=== PATIENT | female | born 1935 | race Caucasian/White ===

== ENCOUNTER → 2016-09-28 | Outpatient (CLI) | payer MEDICARE ==
[~2016-09-28] MED LIST: /AMIO20TA PO; /CELE20CA; /OMEP10CA PO; ACET-654 PO; ACET500C; ACET500C OR; ACET650T PO; ASPI81TA63; BIOT50004 PO; BYST10TA PO; CALC-204 PO; CALC0.009 TOP; CALCCHW12 PO; CALCIUM CITRATE PO; CAND8TA PO; CARTIA XT PO; COCOOIL PO; COZA100T OR; DIGO0.126 PO; DILT180C3 OR; DILT180C53 PO; DULO30CA PO; FLAXOIL4; FOLI1TAB PO; FURO20TA2 PO; GABA-283 PO; GARC500T PO; GLUC500T3 PO; HYDR-3713 PO; IRBE75TA2 PO; JANUVIA PO; LIDO1CRE2 TOP; LISI5TAB PO; LIVA2TAB PO; LYRI75CA; MELA0.02 PO; METH2.5T PO; METH2.5T3 PO; MULTIVIT PO; NEUR100C PO; PACE200T PO; RED YEAST RICE PO; RESTASIS; RESTASIS OU; ROBA500T PO; SPIR25TA2 PO; TIMOLOL PO; TIZA4TAB OR; TRAM50TA2; TRAM50TA2 PO; VIT D; VIT D 2000 PO; VITA200016 PO; VITA500C OR; VITMTA PO; XARE20TA PO; [UNRECOGNIZED DRUG - CODE] PO; [UNRECOGNIZED DRUG - OTHER]; [UNRECOGNIZED DRUG - OTHER]; [UNRECOGNIZED DRUG - OTHER] PO; cipro; dovonex TOP
--- NOTE | 2016-10-11 02:04 | ECWPNPC ---
PATIENT NAME: SOCO FRANKLIN : 1935 GENDER: FEMALE VISIT DATE: 09/28/2016 DISCHARGE DATE: 09/28/16 1100 VISIT LOCKED DATE TIME: PHYSICIAN: ITALO GUILLEN RESOURCE: ITALO GUILLEN REASON FOR APPOINTMENT 1. LOW BACK/LEGS HISTORY OF PRESENT ILLNESS HISTORY OF PRESENT ILLNESS: PAIN THE PATIENT DESCRIBES THE PAIN... FALL RISK SCREENING: SCREENING :NO FALLS IN THE PAST YEAR TODAY'S VISIT: NOTES: HAS HAD NEW DIFFICULTY WITH INCREASED PAIN WITH GETTING INTO AND OUT OF BED. HAS BEEN HAVING INCREASED WEAKNESS PARTICULARLY IN LEFT LEG. PHYSICAL THERAPY TO EVAL. THEY ARE RECOMMENDING NEW SURGICAL EVAL. RECENT FALL BACKWARDS ON COMMODE WHICH PRODUCED BRUISING AND DIFFICULTY SITTING. HAS CONSTANT AND PERSISTANT ACHE IN LEG. DOES HAVE POWER CHAIR AND HAS BEEN USING THIS. WILL BE SEEING DR TONY FOR BOWEL CONSTIPATION/BOWEL ISSUES. . CURRENT MEDICATIONS TAKING VITAMIN C 500 MG TABLET CHEWABLE DIRECTED ORALLY DAILY TAKING VITAMIN D 3000 CAPSULE 1 TABLET ORALLY ONCE A DAY TAKING PRILOSEC OTC 20 MG TABLET DELAYED RELEASE 1 TABLET ORALLY ONCE A DAY TAKING JANUVIA 100 MG TABLET 1 TABLET ORALLY ONCE A DAY TAKING CALCIUM 600 + D 600-400 MG-UNIT TABLET 1 TABLET ORALLY TWICE DAILY TAKING METHOTREXATE 2.5 MG TABLET 3 TAB(S) ORALLY WEEKLY TAKING FOLIC ACID 1 MG TABLET 1 TABLET ORALLY ONCE A DAY TAKING DOVONEX 0.005 % CREAM 1 APPLICATION TO AFFECTED AREA EXTERNALLY TWICE A DAY TAKING AMIODARONE HCL 200 MG TABLET 1 TABLET ORALLY ONCE A DAY TAKING BYSTOLIC 10 MG TABLET 1 TABLET ORALLY ONCE A DAY TAKING BENADRYL 25 MG TABLETS 2 CAPSULE NEEDED ORALLY QD TAKING XARELTO 20 MG TABLET 1 TABLET WITH FOOD ORALLY ONCE A DAY TAKING SPIRONOLACTONE 25 MG TABLET 1 TABLET ORALLY QD TAKING IRBESARTAN 75 MG TABLET 1 TABLET ORALLY ONCE A DAY TAKING PRAVASTATIN SODIUM 10 MG TABLET 1 TABLET ORALLY ONCE A DAY TAKING LIDOCAINE 5 % OINTMENT 1 APPLICATION TO AFFECTED AREA NEEDED EXTERNALLY FOUR TIMES DAILY TAKING GABAPENTIN 300 MG CAPSULE 1 CAPSULE ORALLY THREE TIMES A DAY TAKING CYMBALTA 60 MG CAPSULE DELAYED RELEASE PARTICLES 1 CAPSULE ORALLY ONCE A DAY TAKING NORCO 5-325 MG TABLET 1 TABLET ORALLY EVERY 6 HRS PRN PAIN MDD=2 TAKING DOC-Q-LACE 100 MG CAPSULE 1 CAPSULE NEEDED ORALLY ONCE A DAY TAKING SENNA LAX 8.6 MG TABLET 2 TABLETS AT BEDTIME NEEDED ORALLY ONCE A DAY TAKING TYLENOL 325 MG TABLET 1 TABLET NEEDED ORALLY EVERY 6 HRS NOT-TAKING POLYETHYLENE GLYCOL 3350-GRX POWDER ORALLY DISCONTINUED CARTIA XT 180 MG CAPSULE EXTENDED RELEASE 24 HOUR 1 CAPSULE ORALLY ONCE A DAY DISCONTINUED TIMOLOL MALEATE 10 MG TABLET 1 TABLET ORALLY DAILY DISCONTINUED GLUCOSAMINE CHONDR 500 COMPLEX CAPSULE DIRECTED ORALLY TWICE DAILY DISCONTINUED OMEGA 3-6-9 FATTY ACIDS CAPSULE DIRECTED ORALLY DAILY DISCONTINUED RESTASIS 0.05 % EMULSION 1 INTO AFFECTED EYE OPHTHALMIC TWICE A DAY DISCONTINUED RED YEAST RICE 600 MG CAPSULE DIRECTED ORALLY TWICE DAILY DISCONTINUED TIZANIDINE HCL 4 MG TABLET 1 TABLET ORALLY EVERY 8 HRS MEDICATION LIST REVIEWED AND RECONCILED WITH THE PATIENT PAST MEDICAL HISTORY HIGH CHOLESTEROL HIGH BLOOD PRESSURE ARTHRITIS DIABETES MALLITUS PSORIASIS CHRONIC DRY EYES SKIN CANCERS (SCC) ALLERGIES ESTROGENS CONJ SYNTHETIC A: RASH CLOBETASOL PROPIONATE: RASH IMIQUIMOD: RASH CLINDAMYCIN HCL: RASH TRAMADOL: NAUSEA ,VOMITTING AND DIZZINESS SULFA: CONTRAINDICATION SOCIAL HISTORY GENERAL: TOBACCO USE ARE YOU A:NONSMOKER LEARNING BARRIERS / SPECIAL NEEDS ORIENTED TO PLAN OF CARE: PATIENT, PAIN MANAGEMENT PATIENT, ORIENTED TO PLAN OF CARE: PATIENT, PAIN MANAGEMENT PATIENT. NEW PATIENT PAIN DIARY TODAY'S VISITNOTES FROM 0-10, WHAT LEVEL IS YOUR PAIN TODAY?0 PAIN CLINIC PFS, CLERGY, PUBLIC HEALTH REFERRALS PFS REFERRAL NEEDED?NO CLERGY REFERRAL NEEDED?NO PUBLIC HEALTH REFERRAL NEEDED?NO WAS THE PROVIDER NOTIFIED OF ANY PERTINENT INFO?NO PFS REFERRAL NEEDED?NO CLERGY REFERRAL NEEDED?NO PUBLIC HEALTH REFERRAL NEEDED?NO WAS THE PROVIDER NOTIFIED OF ANY PERTINENT INFO?NO REVIEW OF SYSTEMS CONSTITUTIONAL: ANY CHANGE IN YOUR MEDICAL CONDITION? NO . CHILLS NO . FEVER NO . INFECTION: DO YOU HAVE NEW INFECTIONS? NO . DO YOU HAVE HISTORY OF MRSA? NO . MUSCULOSKELETAL: ANY NEW PATTERNS OF PAIN OR NUMBNESS? NO . GASTROENTEROLOGY: ANY NEW CHANGE IN BOWEL CONTROL? NO . GENITOURINARY: ANY NEW CHANGE IN BLADDER CONTROL? NO . IS THERE A CHANCE YOU COULD BE ? NO . HEMATOLOGY/LYMPH: DO YOU TAKE ANY BLOOD THINNERS? (FOR EXAMPLE- COUMADIN, PLAVIX, AGGRENOX, PLATEL, PRADAXA, OR XARELTO) YES, XARALTO . WHEN WAS YOUR LAST DOSE? DATE: TIME: . NEUROLOGY: HAVE YOU FALLEN IN THE PAST 6 MONTHS? YES . ANY NEW EXTREMITY NUMBNESS OR WEAKNESS? PERINEAL NUMBNESS . CARDIOLOGY: DO YOU HAVE A PACEMAKER OR DEFIBRILLATOR? YES, PACEMAKER . RESPIRATORY: HAVE YOU BEEN SICK IN THE PAST WEEK? NO . FEVER NO . FLU LIKE SYMPTOMS? NO . BREATHING DECREASED O2 SATS AT NITE - HAS BEEN STARTED ON OXYGEN THERAPY WHICH HAS IMPROVED DAY TIME SLEEPINESS. HAD RECENT PULMONARY FUNCTION STUDIES. . COUGH NO . INTEGUMENTARY: DO YOU HAVE ANY RASHES OR OPEN SORES? NO . ALLERGIC/IMMUNO: ARE YOU ALLERGIC TO SHELLFISH OR IV DYE? NO . ANY NEW ALLERGIES? NO . PSYCHIATRIC: DO YOU HAVE THOUGHTS OF HURTING YOURSELF OR SOMEONE ELSE? NO . ARE YOU ABUSED, NEGLECTED, OR IN AN UNSAFE ENVIRONMENT? NO . ENDOCRINOLOGY: ARE YOU DIABETIC? YES . OTHER: DO YOU NEED ANY PRESCRIPTIONS? NO . IF YES, PLEASE LIST: ____ . ANY NEW PROBLEMS WITH YOUR MEDICATIONS? NO . WHEN DID YOU LAST EAT? ____ . WHEN DID YOU LAST DRINK? ____ . WHAT DID YOU LAST DRINK? ____ . NAME OF PERSON DRIVING YOU HOME? ____ . DO YOU HAVE ANY OTHER QUESTIONS OR CONCERNS NO . UROLOGY: GENERAL NOCTURIA X 3. COMMODE AT BEDSIDE. . REVIEWED BY: PROVIDER: ITALO AVINA . VITAL SIGNS WT 228 LBS, HT 63 IN, BMI 40.38 INDEX, BP 116/64 MM HG, HR 100 /MIN, RR 18 /MIN, TEMP 97.7 F, OXYGEN SAT % 97, NA INITIALS TL 1002, REVIEWED BY: CM. EXAMINATION GENERAL EXAMINATION: PSYCHALERT , ORIENTED X 3 , APPROPRIATE MOOD AND AFFECT . LUNGS:CLEAR TO AUSCULTATION BILATERALLY. HEART:HEART RATE REGULAR. MUSCULOSKELETAL:GAIT STEPPING. VERY DIFFICULT TIME RISING TO STANDING POSITION OR RETURNING TO SEATED POSITION. MILD TENDERNESS WITH PALPATION OVER LUMBOSACRAL AXIS. WEAKESS IN BOTH LOWER EXTREMITIES. . ASSESSMENTS LUMBAR SPINAL STENOSIS - M48.06 (PRIMARY) LUMBAR RADICULOPATHY, CHRONIC - M54.16 CHRONIC PRESCRIPTION OPIATE USE - Z79.891 TREATMENT LUMBAR SPINAL STENOSIS START GABAPENTIN CAPSULE, 300 MG, 1 CAPSULE, ORALLY, FOUR TIMES DAILY, 30 DAY(S), 120, REFILLS 3 REFILL NORCO TABLET, 5-325 MG, 1 TABLET, ORALLY, EVERY 6 HRS PRN PAIN MDD=2, 30 DAY(S), 120, REFILLS 0 PROCEDURE CODES FA211 ESTABILISHED PATIENT [facility] FACILITY CHARGE G8730 PAIN ASSESS POS TOOL F/U PLAN DOC G8427 DOC MEDS VERIFIED W/PT OR RE DISPOSITION & COMMUNICATION FOLLOW UP 3 MONTH ELECTRONICALLY SIGNED BY CHRISTINE CURTIS ON 10/10/2016 AT 03:23 PM EST DISCLAIMER : THIS IS A VISIT SUMMARY EXTRACTED FROM THE [employer] CHART. IT IS NOT A COPY OF THE [employer] PROGRESS NOTE. CACHORRO
== END ==
LOC: M PAIN 10:00
PROVIDERS: ATTEND Nurse Practitioner Family
DX: Z09 Encounter for follow-up examination after completed treatment for conditions other than malignant neoplasm (principal); G89.29 Other chronic pain; M48.06 Spinal stenosis, lumbar region; M54.16 Radiculopathy, lumbar region; E78.00 Pure hypercholesterolemia, unspecified; I10 Essential (primary) hypertension; M19.90 Unspecified osteoarthritis, unspecified site; E11.9 Type 2 diabetes mellitus without complications; L40.9 Psoriasis, unspecified; M62.81 Muscle weakness (generalized); G62.9 Polyneuropathy, unspecified; Z88.8 Allergy status to other drugs, medicaments and biological substances; Z88.2 Allergy status to sulfonamides; Z88.5 Allergy status to narcotic agent; Z79.01 Long term (current) use of anticoagulants; Z79.891 Long term (current) use of opiate analgesic; Z79.899 Other long term (current) drug therapy; Z95.0 Presence of cardiac pacemaker

== ENCOUNTER → 2016-12-26 | Outpatient (CLI) | payer MEDICARE ==
--- NOTE | 2017-01-16 03:13 | ECWPNPC ---
PATIENT NAME: SOCO FRANKLIN : 1935 GENDER: FEMALE VISIT DATE: 12/26/2016 DISCHARGE DATE: 12/26/16 1135 VISIT LOCKED DATE TIME: PHYSICIAN: ITALO GUILLEN RESOURCE: ITALO GUILLEN REASON FOR APPOINTMENT 1. LBP/LEGS HISTORY OF PRESENT ILLNESS HISTORY OF PRESENT ILLNESS: PAIN THE PATIENT DESCRIBES THE PAIN... FALL RISK SCREENING: SCREENING :NO FALLS IN THE PAST YEAR TODAY'S VISIT: NOTES: NOTES THAT MORNING ARE GENERALLY THE BEST, BACK AND LEFT LEG PAIN INCREASED DAY GOES ON AND WITH INCREASED ACTIVITY. SITTING RELIEVES THE PAIN. BALANCE REMAINS POOR. NO RECENT FALLS. HAVING GREAT DEAL OF DIFFICULTY GETTING INTO CAR. HAS SOME NEUROPATHIC PAIN.. CURRENT MEDICATIONS TAKING VITAMIN C 500 MG TABLET CHEWABLE DIRECTED ORALLY DAILY TAKING VITAMIN D 3000 CAPSULE 1 TABLET ORALLY ONCE A DAY TAKING PRILOSEC OTC 20 MG TABLET DELAYED RELEASE 1 TABLET ORALLY ONCE A DAY TAKING JANUVIA 100 MG TABLET 1 TABLET ORALLY ONCE A DAY TAKING CALCIUM 600 + D 600-400 MG-UNIT TABLET 1 TABLET ORALLY TWICE DAILY TAKING METHOTREXATE 2.5 MG TABLET 3 TAB(S) ORALLY WEEKLY TAKING FOLIC ACID 1 MG TABLET 1 TABLET ORALLY ONCE A DAY TAKING DOVONEX 0.005 % CREAM 1 APPLICATION TO AFFECTED AREA EXTERNALLY TWICE A DAY TAKING AMIODARONE HCL 200 MG TABLET 1 TABLET ORALLY ONCE A DAY TAKING BYSTOLIC 10 MG TABLET 1 TABLET ORALLY ONCE A DAY TAKING BENADRYL 25 MG TABLETS 2 CAPSULE NEEDED ORALLY QD TAKING XARELTO 20 MG TABLET 1 TABLET WITH FOOD ORALLY ONCE A DAY TAKING SPIRONOLACTONE 25 MG TABLET 1 TABLET ORALLY QD TAKING IRBESARTAN 75 MG TABLET 1 TABLET ORALLY ONCE A DAY TAKING PRAVASTATIN SODIUM 10 MG TABLET 1 TABLET ORALLY ONCE A DAY TAKING LIDOCAINE 5 % OINTMENT 1 APPLICATION TO AFFECTED AREA NEEDED EXTERNALLY FOUR TIMES DAILY TAKING CYMBALTA 60 MG CAPSULE DELAYED RELEASE PARTICLES 1 CAPSULE ORALLY ONCE A DAY TAKING DOC-Q-LACE 100 MG CAPSULE 1 CAPSULE NEEDED ORALLY ONCE A DAY TAKING SENNA LAX 8.6 MG TABLET 2 TABLETS AT BEDTIME NEEDED ORALLY ONCE A DAY TAKING TYLENOL 325 MG TABLET 1 TABLET NEEDED ORALLY EVERY 6 HRS TAKING GABAPENTIN 300 MG CAPSULE 1 CAPSULE ORALLY FOUR TIMES DAILY TAKING NORCO 5-325 MG TABLET 1 TABLET ORALLY EVERY 6 HRS PRN PAIN MDD=2 NOT-TAKING POLYETHYLENE GLYCOL 3350-GRX POWDER ORALLY DISCONTINUED GABAPENTIN 300 MG CAPSULE 1 CAPSULE ORALLY FOUR TIMES DAILY MEDICATION LIST REVIEWED AND RECONCILED WITH THE PATIENT PAST MEDICAL HISTORY HIGH CHOLESTEROL HIGH BLOOD PRESSURE ARTHRITIS DIABETES MALLITUS PSORIASIS CHRONIC DRY EYES SKIN CANCERS (SCC) ALLERGIES ESTROGENS CONJ SYNTHETIC A: RASH CLOBETASOL PROPIONATE: RASH IMIQUIMOD: RASH CLINDAMYCIN HCL: RASH TRAMADOL: NAUSEA ,VOMITTING AND DIZZINESS SULFA: CONTRAINDICATION REVIEW OF SYSTEMS CONSTITUTIONAL: ANY CHANGE IN YOUR MEDICAL CONDITION? NO . CHILLS NO . FEVER NO . INFECTION: DO YOU HAVE NEW INFECTIONS? NO . DO YOU HAVE HISTORY OF MRSA? NO . MUSCULOSKELETAL: ANY NEW PATTERNS OF PAIN OR NUMBNESS? NO . GASTROENTEROLOGY: ANY NEW CHANGE IN BOWEL CONTROL? NO NO CONSTIPATION . GENITOURINARY: ANY NEW CHANGE IN BLADDER CONTROL? NO . IS THERE A CHANCE YOU COULD BE ? NO . HEMATOLOGY/LYMPH: DO YOU TAKE ANY BLOOD THINNERS? (FOR EXAMPLE- COUMADIN, PLAVIX, AGGRENOX, PLATEL, PRADAXA, OR XARELTO) YES, XARELTO . WHEN WAS YOUR LAST DOSE? DATE: TIME: 12/25/16 1730 . NEUROLOGY: HAVE YOU FALLEN IN THE PAST 6 MONTHS? NO . ANY NEW EXTREMITY NUMBNESS OR WEAKNESS? NO . CARDIOLOGY: DO YOU HAVE A PACEMAKER OR DEFIBRILLATOR? YES, PACEMAKER . RESPIRATORY: HAVE YOU BEEN SICK IN THE PAST WEEK? NO . FEVER NO . FLU LIKE SYMPTOMS? NO . COUGH NO . INTEGUMENTARY: DO YOU HAVE ANY RASHES OR OPEN SORES? NO . ALLERGIC/IMMUNO: ARE YOU ALLERGIC TO SHELLFISH OR IV DYE? NO . ANY NEW ALLERGIES? NO . PSYCHIATRIC: DO YOU HAVE THOUGHTS OF HURTING YOURSELF OR SOMEONE ELSE? NO . ARE YOU ABUSED, NEGLECTED, OR IN AN UNSAFE ENVIRONMENT? NO . ENDOCRINOLOGY: ARE YOU DIABETIC? YES, FSBS 102 THIS A.M . OTHER: DO YOU NEED ANY PRESCRIPTIONS? NO . IF YES, PLEASE LIST: ____ . ANY NEW PROBLEMS WITH YOUR MEDICATIONS? NO . WHEN DID YOU LAST EAT? ____ . WHEN DID YOU LAST DRINK? ____ . WHAT DID YOU LAST DRINK? ____ . NAME OF PERSON DRIVING YOU HOME? ____ . DO YOU HAVE ANY OTHER QUESTIONS OR CONCERNS NO . REVIEWED BY: PROVIDER: ITALO AVINA . VITAL SIGNS WT 224.0 LBS, HT 63 IN, BMI 39.68 INDEX, BP 130/90 MM HG, HR 98 /MIN, RR 16 /MIN, TEMP 97.5 F, OXYGEN SAT % 96%, NA INITIALS TL 1044, REVIEWED BY: AD. EXAMINATION GENERAL EXAMINATION: PSYCHALERT , ORIENTED X 3 , APPROPRIATE MOOD AND AFFECT . LUNGS:CLEAR TO AUSCULTATION BILATERALLY. HEART:HEART RATE REGULAR. MUSCULOSKELETAL:GAIT STEPPING. VERY DIFFICULT TIME RISING TO STANDING POSITION OR RETURNING TO SEATED POSITION. MILD TENDERNESS WITH PALPATION OVER LUMBOSACRAL AXIS. WEAKESS IN BOTH LOWER EXTREMITIES. . ASSESSMENTS LUMBAR SPINAL STENOSIS - M48.06 (PRIMARY) NEUROPATHY - G62.9 CHRONIC PRESCRIPTION OPIATE USE - Z79.891 TREATMENT LUMBAR SPINAL STENOSIS NOTES: CONTINUE CURRENT MEDS. CONTINUE EXERCISES AND STRETCHES. UPDATE NARCOTIC AGREEEMENT , FALLS CARE PLAN: 1. RECOMMEND REMOVING ALL THROW RUGS. 2. RECOMMEND NIGHT LIGHTS 3. RECOMMEND WEARING RUBBER SOLED SHOES AND TO NOT GO BAREFOOT. 4.. ADVISED TO CHANGE POSITION SLOWLY FROM SUPINE TO STANDING TO AVOID DIZZINESS. 5. ADVISED TO USE ASSISTIVE DEVICE SUCH CANE OR WALKER USE POWER CHAIR FOR LONGER DISTANCES. #128 - SCREENING BMI AND F/U PLAN IN : BMI ABOVE NORMAL TODAY. DISCUSSED WITH PATIENT NUTRITIONAL FOOD CHOICES TO ASSIST WITH WEIGHT LOSS. RECCOMMENDED REDUCING SALT, SUGAR, SODA INTAKE. RECOMMEND INCREASE ACTIVITY TO INCLUDE WALKING ON A REGULAR BASIS. , 6. USE [employer] OR KEEP PORTABLE PHONE READILY AVAILABLE. CLINICAL NOTES: ISTOP REGISTRY REVIEWED AND DEMNOSTRATES COMPLLIANCE. BRINGS IN MEDICATIONS WHICH IS APPROPRIATE FOR WHAT WAS DISPENSED. RECENT URINE TOXICOLOGY REVIEWED. NO UNAUTHORIZED MEDICATIONS. NO ILLICIT SUBSTANCES AND PRESCRIBED MEDICATIONS WERE PRESENT. PROCEDURE CODES FA211 ESTABILISHED PATIENT [facility] FACILITY CHARGE G8783 BP SCR PRFRM RCMDD DEFIND SCR INTVL G8730 PAIN ASSESS POS TOOL F/U PLAN DOC 3016F PT SCRND UNHLTHY OH USE 1124F ACP DISCUSS-NO [id number] DOCD 1036F TOBACCO NON-USER 0518F FALL PLAN OF CARE DOCD G8427 DOC MEDS VERIFIED W/PT OR RE G8417 BMI >=30 CALCUATE W/FOLLOWUP 3288F FALL RISK ASSESSMENT DOCD DISPOSITION & COMMUNICATION FOLLOW UP 3 MONTHS ELECTRONICALLY SIGNED BY CHRISTINE CURTIS ON 01/15/2017 AT 08:21 AM EDT DISCLAIMER : THIS IS A VISIT SUMMARY EXTRACTED FROM THE [employer] CHART. IT IS NOT A COPY OF THE [employer] PROGRESS NOTE. CACHORRO
== END ==
LOC: M PAIN 10:00
PROVIDERS: ATTEND Nurse Practitioner Family
DX: G89.29 Other chronic pain (principal); M48.06 Spinal stenosis, lumbar region; G62.9 Polyneuropathy, unspecified; E78.00 Pure hypercholesterolemia, unspecified; I10 Essential (primary) hypertension; M19.90 Unspecified osteoarthritis, unspecified site; E11.9 Type 2 diabetes mellitus without complications; Z88.8 Allergy status to other drugs, medicaments and biological substances; Z88.5 Allergy status to narcotic agent; Z88.2 Allergy status to sulfonamides; Z79.01 Long term (current) use of anticoagulants; Z79.891 Long term (current) use of opiate analgesic; Z79.899 Other long term (current) drug therapy; Z95.0 Presence of cardiac pacemaker

== ENCOUNTER → 2017-01-10 | Outpatient (CLI) | payer MEDICARE ==
[2017-01-10 14:14] LABS: MEAN CORPUSCULAR HEMOGLOBIN 36.7 pg (27.0-33.0); MEAN CORPUSCULAR HGB CONC 33.9 g/dl (32.0-36.5); MEAN CORPUSCULAR VOLUME 108.2 fl (80.0-96.0); RED CELL DISTRIBUTION WIDTH 12.8 % (11.5-14.5); WHITE BLOOD COUNT 5.3 K/mm3 (4.0-10.0)
== END ==
LOC: M SMT 11:02
PROVIDERS: ATTEND Physician Assistant Medical
DX: K62.5 Hemorrhage of anus and rectum (principal); Z79.01 Long term (current) use of anticoagulants

== ENCOUNTER → 2017-03-28 | Outpatient (CLI) | payer MEDICARE ==
[~2017-03-28] MED LIST changes: -MELA0.02 PO; +MELA3TAB49 PO
--- NOTE | 2017-04-13 23:39 | ECWPNPC ---
PATIENT NAME: SOCO FRANKLIN : 1935 GENDER: FEMALE VISIT DATE: 03/28/2017 DISCHARGE DATE: 03/28/17 1115 VISIT LOCKED DATE TIME: PHYSICIAN: ITALO GUILLEN RESOURCE: ITALO GUILLEN REASON FOR APPOINTMENT 1. FOLLOWUP HISTORY OF PRESENT ILLNESS HISTORY OF PRESENT ILLNESS: PAIN THE PATIENT DESCRIBES THE PAIN... FALL RISK SCREENING: SCREENING :NO FALLS IN THE PAST YEAR TODAY'S VISIT: NOTES: HAS HAD A GOOD SUMMER. HAS BEEN SWIMMING AND IS SLEEPING WELL. HAS GOOD DAYS AND BAD DAYS. HAS A CRAMP PAIN IN SIDE OF LEFT LEFT LEG - THIS CAN AWAKEN AT NITE.RATES PAIN VARYING BETWEEN 0-6/10 DEPENDING ON THE AMOUNT OF TIME SHE SPENDS ON HER FEET. . CURRENT MEDICATIONS TAKING VITAMIN C 500 MG TABLET CHEWABLE DIRECTED ORALLY DAILY TAKING VITAMIN D 3000 CAPSULE 1 TABLET ORALLY ONCE A DAY TAKING PRILOSEC OTC 20 MG TABLET DELAYED RELEASE 1 TABLET ORALLY ONCE A DAY TAKING JANUVIA 100 MG TABLET 1 TABLET ORALLY ONCE A DAY TAKING CALCIUM 600 + D 600-400 MG-UNIT TABLET 2 TABLETS ORALLY TWICE DAILY TAKING METHOTREXATE 2.5 MG TABLET 3 TAB(S) ORALLY WEEKLY TAKING FOLIC ACID 1 MG TABLET 1 TABLET ORALLY ONCE A DAY EXCEPT ON SAT TAKING DOVONEX 0.005 % CREAM 1 APPLICATION TO AFFECTED AREA EXTERNALLY TWICE A DAY TAKING AMIODARONE HCL 200 MG TABLET 1 TABLET ORALLY ONCE A DAY TAKING BYSTOLIC 10 MG TABLET 1 TABLET ORALLY ONCE A DAY TAKING XARELTO 20 MG TABLET 1 TABLET WITH FOOD ORALLY ONCE A DAY TAKING SPIRONOLACTONE 25 MG TABLET 1 TABLET ORALLY QD TAKING IRBESARTAN 75 MG TABLET 1 TABLET ORALLY ONCE A DAY TAKING PRAVASTATIN SODIUM 10 MG TABLET 1 TABLET ORALLY ONCE A DAY TAKING LIDOCAINE 5 % OINTMENT 1 APPLICATION TO AFFECTED AREA NEEDED EXTERNALLY FOUR TIMES DAILY TAKING TYLENOL 325 MG TABLET 1 TABLET NEEDED ORALLY EVERY 6 HRS TAKING GABAPENTIN 300 MG CAPSULE 1 CAPSULE ORALLY FOUR TIMES DAILY, NOTES: 03/28/17 AT 0800 TAKING CYMBALTA 60 MG CAPSULE DELAYED RELEASE PARTICLES 1 CAPSULE ORALLY ONCE A DAY, NOTES: 03/28/17 AT 0800 TAKING NORCO 5-325 MG TABLET 1 TABLET ORALLY EVERY 6 HRS PRN PAIN MDD=2, NOTES: 03/27/17 AT 2300 TAKING FUROSEMIDE 20 MG TABLET 1 TABLET ORALLY ONCE A DAY TAKING FIBER - TABLET 1 TAB ORALLY TWICE A DAY NOT-TAKING BENADRYL 25 MG TABLETS 2 CAPSULE NEEDED ORALLY QD NOT-TAKING DOC-Q-LACE 100 MG CAPSULE 1 CAPSULE NEEDED ORALLY ONCE A DAY NOT-TAKING SENNA LAX 8.6 MG TABLET 2 TABLETS AT BEDTIME NEEDED ORALLY ONCE A DAY NOT-TAKING POLYETHYLENE GLYCOL 3350-GRX POWDER ORALLY MEDICATION LIST REVIEWED AND RECONCILED WITH THE PATIENT PAST MEDICAL HISTORY HIGH CHOLESTEROL HIGH BLOOD PRESSURE ARTHRITIS DIABETES MALLITUS PSORIASIS CHRONIC DRY EYES SKIN CANCERS (SCC) ALLERGIES ESTROGENS CONJ SYNTHETIC A: RASH CLOBETASOL PROPIONATE: RASH IMIQUIMOD: RASH CLINDAMYCIN HCL: RASH TRAMADOL: NAUSEA ,VOMITTING AND DIZZINESS SULFA: CONTRAINDICATION SOCIAL HISTORY GENERAL: TOBACCO USE ARE YOU A:NONSMOKER JUDAISM [id number] TAOIST LANGUAGE LANGUAGES SPOKEN:MALTESE LEARNING BARRIERS / SPECIAL NEEDS CHANGE FROM LAST VISIT?NO BARRIERS TO LEARNING?NO HEARING IMPAIRED?NO VISION IMPAIRED?YES :CORRECTIVE LENSES COGNITIVELY IMPAIRED?NO READINESS TO LEARN?YES LEARNING PREFERENCES?NO LEARNING CAPABILITIES PRESENT?YES EMOTIONAL BARRIERS?NO 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 CONSTITUTIONAL: ANY CHANGE IN YOUR MEDICAL CONDITION? NO . CHILLS NO . FEVER NO . INFECTION: DO YOU HAVE NEW INFECTIONS? NO . DO YOU HAVE HISTORY OF MRSA? NO . MUSCULOSKELETAL: ANY NEW PATTERNS OF PAIN OR NUMBNESS? NO . GASTROENTEROLOGY: ANY NEW CHANGE IN BOWEL CONTROL? NO SIGNIFICANT CONSTIPATION ON MULTIPLE MEDS AND HEMMORROIDS. . GENITOURINARY: ANY NEW CHANGE IN BLADDER CONTROL? NO . IS THERE A CHANCE YOU COULD BE ? NO . HEMATOLOGY/LYMPH: DO YOU TAKE ANY BLOOD THINNERS? (FOR EXAMPLE- COUMADIN, PLAVIX, AGGRENOX, PLATEL, PRADAXA, OR XARELTO) YES, XARELTO . WHEN WAS YOUR LAST DOSE? DATE:03/27/17 TIME: 1730 . NEUROLOGY: HAVE YOU FALLEN IN THE PAST 6 MONTHS? NO . ANY NEW EXTREMITY NUMBNESS OR WEAKNESS? NO . CARDIOLOGY: DO YOU HAVE A PACEMAKER OR DEFIBRILLATOR? YES . RESPIRATORY: HAVE YOU BEEN SICK IN THE PAST WEEK? NO . FEVER NO . FLU LIKE SYMPTOMS? NO . COUGH NO . INTEGUMENTARY: DO YOU HAVE ANY RASHES OR OPEN SORES? NO . ALLERGIC/IMMUNO: ARE YOU ALLERGIC TO SHELLFISH OR IV DYE? NO . ANY NEW ALLERGIES? NO . PSYCHIATRIC: DO YOU HAVE THOUGHTS OF HURTING YOURSELF OR SOMEONE ELSE? NO . ARE YOU ABUSED, NEGLECTED, OR IN AN UNSAFE ENVIRONMENT? NO . ENDOCRINOLOGY: ARE YOU DIABETIC? YES . OTHER: DO YOU NEED ANY PRESCRIPTIONS? NO . IF YES, PLEASE LIST: ____ . ANY NEW PROBLEMS WITH YOUR MEDICATIONS? NO . WHEN DID YOU LAST EAT? ____ . WHEN DID YOU LAST DRINK? ____ . WHAT DID YOU LAST DRINK? ____ . NAME OF PERSON DRIVING YOU HOME? ____ . DO YOU HAVE ANY OTHER QUESTIONS OR CONCERNS NO . VITAL SIGNS WT 239 LBS, HT 63 IN, BMI 42.33 INDEX, BP 131/60 MM HG, HR 70 /MIN, RR 16 /MIN, TEMP 97.2 F, OXYGEN SAT % 93%, NA INITIALS AW 1009, REVIEWED BY: CS. EXAMINATION GENERAL EXAMINATION: PSYCHALERT , ORIENTED X 3 , APPROPRIATE MOOD AND AFFECT . LUNGS:CLEAR TO AUSCULTATION BILATERALLY. HEART:HEART RATE REGULAR. MUSCULOSKELETAL:GAIT STEPPING. VERY DIFFICULT TIME RISING TO STANDING POSITION OR RETURNING TO SEATED POSITION. MILD TENDERNESS WITH PALPATION OVER LUMBOSACRAL AXIS. WEAKESS IN BOTH LOWER EXTREMITIES. . ASSESSMENTS LUMBAR SPINAL STENOSIS - M48.06 (PRIMARY) SACROILIITIS - M46.1 CHRONIC PRESCRIPTION OPIATE USE - Z79.891 TREATMENT LUMBAR SPINAL STENOSIS START MOVANTIK TABLET, 12.5 MG, 1 TABLET IN THE MORNING, ORALLY, ONCE A DAY, 30 DAY(S), 30, REFILLS 1 NOTES: UTOX TODAY CONTINUE CURRENT MEDS WALK TOLERATED. USE WALKER FOFR SUPPORT TRY MOVANTIK EVERY OTHER DAY, ISTOP REGISTRY REVIEWED AND DEMNOSTRATES COMPLLIANCE. BRINGS IN MEDICATIONS WHICH IS APPROPRIATE FOR WHAT WAS DISPENSED. RECENT URINE TOXICOLOGY REVIEWED. NO UNAUTHORIZED MEDICATIONS. NO ILLICIT SUBSTANCES AND PRESCRIBED MEDICATIONS WERE PRESENT. PROCEDURE CODES FA211 ESTABILISHED PATIENT [facility] FACILITY CHARGE G8730 PAIN ASSESS POS TOOL F/U PLAN DOC G8427 DOC MEDS VERIFIED W/PT OR RE DISPOSITION & COMMUNICATION FOLLOW UP 2 MONTHS (REASON: MEDS) ELECTRONICALLY SIGNED BY CHRISTINE CURTIS ON 04/13/2017 AT 04:43 PM EDT DISCLAIMER : THIS IS A VISIT SUMMARY EXTRACTED FROM THE [facility] CHART. IT IS NOT A COPY OF THE [facility] PROGRESS NOTE. CACHORRO
== END ==
LOC: M PAIN 10:00
PROVIDERS: ATTEND Nurse Practitioner Family
DX: M48.06 Spinal stenosis, lumbar region (principal); M46.1 Sacroiliitis, not elsewhere classified; Z79.891 Long term (current) use of opiate analgesic; Z79.899 Other long term (current) drug therapy; Z79.84 Long term (current) use of oral hypoglycemic drugs; Z88.8 Allergy status to other drugs, medicaments and biological substances; Z88.1 Allergy status to other antibiotic agents; Z88.2 Allergy status to sulfonamides

== ENCOUNTER → 2017-04-15 | Outpatient (REF) | payer MEDICARE ==
[2017-04-15 14:43] LABS: BASO % 0.9 % (0.0-1.0); EOS # 0.1 K/mm3 (0.0-0.50); EOS % 2.4 % (0.0-3.0); LARGE UNSTAINED CELL # 0.3 K/mm3 (0.0-0.4); LARGE UNSTAINED CELL % 4.4 % (0.0-4.0); LYMPH # 1.4 K/mm3 (1.5-4.5); LYMPH % 24.8 % (24.0-44.0); MEAN CORPUSCULAR HEMOGLOBIN 35.9 pg (27.0-33.0); MEAN CORPUSCULAR HGB CONC 34.1 g/dl (32.0-36.5); MEAN CORPUSCULAR VOLUME 105.1 fl (80.0-96.0); MONO # 0.5 K/mm3 (0.0-0.8); NEUTROPHILS # 3.4 K/mm3 (1.8-7.7); NEUTROPHILS % 59.5 % (36.0-66.0); PLATELET COUNT, AUTOMATED 277 k/mm3 (150-450); RED CELL DISTRIBUTION WIDTH 12.5 % (11.5-14.5); WHITE BLOOD COUNT 5.8 K/mm3 (4.0-10.0)
[2017-04-15 14:52] LABS: ALBUMIN 3.8 GM/DL (3.2-5.2); ALBUMIN/GLOBULIN RATIO 1.12 (1.00-1.93); BILIRUBIN,DIRECT 0.1 MG/DL (0.0-0.2); BILIRUBIN,TOTAL 0.4 MG/DL (0.2-1.0); CALCIUM LEVEL 8.6 MG/DL (8.8-10.2); CREATININE FOR GFR 1.16 MG/DL (0.55-1.02); GLOMERULAR FILTRATION RATE 47.9 (>32); PHOSPHORUS LEVEL 2.6 MG/DL (2.5-4.9); TOTAL PROTEIN 7.2 GM/DL (6.4-8.2)
== END ==
LOC: M LAB REF 11:40
PROVIDERS: ATTEND Nurse Practitioner Family
DX: L40.0 Psoriasis vulgaris (principal); Z51.81 Encounter for therapeutic drug level monitoring; Z79.899 Other long term (current) drug therapy

== ENCOUNTER → 2017-06-14 | Outpatient (CLI) | payer MEDICARE ==
--- NOTE | 2017-07-15 00:44 | ECWPNPC ---
PATIENT NAME: SOCO FRANKLIN : 1935 GENDER: FEMALE VISIT DATE: 06/14/2017 DISCHARGE DATE: 06/14/17 1148 VISIT LOCKED DATE TIME: PHYSICIAN: ITALO GUILLEN RESOURCE: ITALO GUILLEN REASON FOR APPOINTMENT 1. LEGS HISTORY OF PRESENT ILLNESS HISTORY OF PRESENT ILLNESS: PAIN THE PATIENT DESCRIBES THE PAIN... FALL RISK SCREENING: SCREENING :NO FALLS IN THE PAST YEAR TODAY'S VISIT: NOTES: RATES PAIN LEVEL TODAY 4/10. HAS NOTED SOME INCREASE PAIN IN LEFT LEG. THIS IS WORST AT NIGHT. IS NOT ABLE TO LAY ON RIGHT SIDE. MEDS ARE HELPFUL. HAD NO IMPROVEMENT WITH LINZESS - BOWELS ARE MOVING EVERY 3 DAYS. . CURRENT MEDICATIONS TAKING VITAMIN C 500 MG TABLET CHEWABLE DIRECTED ORALLY DAILY TAKING VITAMIN D 3000 CAPSULE 1 TABLET ORALLY ONCE A DAY TAKING PRILOSEC OTC 20 MG TABLET DELAYED RELEASE 1 TABLET ORALLY ONCE A DAY TAKING JANUVIA 100 MG TABLET 1 TABLET ORALLY ONCE A DAY TAKING CALCIUM 600 + D 600-400 MG-UNIT TABLET 2 TABLETS ORALLY TWICE DAILY TAKING METHOTREXATE 2.5 MG TABLET 3 TAB(S) ORALLY WEEKLY TAKING FOLIC ACID 1 MG TABLET 1 TABLET ORALLY ONCE A DAY EXCEPT ON SAT TAKING DOVONEX 0.005 % CREAM 1 APPLICATION TO AFFECTED AREA EXTERNALLY TWICE A DAY TAKING AMIODARONE HCL 200 MG TABLET 1 TABLET ORALLY ONCE A DAY TAKING BYSTOLIC 10 MG TABLET 1 TABLET ORALLY ONCE A DAY TAKING XARELTO 20 MG TABLET 1 TABLET WITH FOOD ORALLY ONCE A DAY TAKING SPIRONOLACTONE 25 MG TABLET 1 TABLET ORALLY QD TAKING IRBESARTAN 75 MG TABLET 1 TABLET ORALLY ONCE A DAY TAKING PRAVASTATIN SODIUM 10 MG TABLET 1 TABLET ORALLY ONCE A DAY TAKING LIDOCAINE 5 % OINTMENT 1 APPLICATION TO AFFECTED AREA NEEDED EXTERNALLY FOUR TIMES DAILY TAKING TYLENOL 325 MG TABLET 1 TABLET NEEDED ORALLY EVERY 6 HRS TAKING GABAPENTIN 300 MG CAPSULE 1 CAPSULE ORALLY FOUR TIMES DAILY, NOTES: 03/28/17 AT 0800 TAKING CYMBALTA 60 MG CAPSULE DELAYED RELEASE PARTICLES 1 CAPSULE ORALLY ONCE A DAY, NOTES: 03/28/17 AT 0800 TAKING FUROSEMIDE 40 MG TABLET 1 TABLET ORALLY ONCE A DAY TAKING FIBER - TABLET 1 TAB ORALLY TWICE A DAY TAKING NORCO 5-325 MG TABLET 1 TABLET ORALLY EVERY 6 HRS PRN PAIN MDD=2 NOT-TAKING LINZESS 145 MCG CAPSULE 1 CAPSULE ORALLY ONCE A DAY DISCONTINUED MOVANTIK 12.5 MG TABLET 1 TABLET IN THE MORNING ORALLY ONCE A DAY DISCONTINUED BENADRYL 25 MG TABLETS 2 CAPSULE NEEDED ORALLY QD DISCONTINUED DOC-Q-LACE 100 MG CAPSULE 1 CAPSULE NEEDED ORALLY ONCE A DAY DISCONTINUED SENNA LAX 8.6 MG TABLET 2 TABLETS AT BEDTIME NEEDED ORALLY ONCE A DAY DISCONTINUED POLYETHYLENE GLYCOL [id number] POWDER ORALLY MEDICATION LIST REVIEWED AND RECONCILED WITH THE PATIENT PAST MEDICAL HISTORY HIGH CHOLESTEROL HIGH BLOOD PRESSURE ARTHRITIS DIABETES MALLITUS PSORIASIS CHRONIC DRY EYES SKIN CANCERS (SCC) ALLERGIES ESTROGENS CONJ SYNTHETIC A: RASH CLOBETASOL PROPIONATE: RASH IMIQUIMOD: RASH CLINDAMYCIN HCL: RASH TRAMADOL: NAUSEA ,VOMITTING AND DIZZINESS SULFA: CONTRAINDICATION SOCIAL HISTORY GENERAL: TOBACCO USE ARE YOU A:NONSMOKER SYNAGOGUE [id number] JAINISM LANGUAGE LANGUAGES SPOKEN:FRISIAN LEARNING BARRIERS / SPECIAL NEEDS CHANGE FROM LAST VISIT?NO BARRIERS TO LEARNING?NO HEARING IMPAIRED?NO VISION IMPAIRED?YES :CORRECTIVE LENSES COGNITIVELY IMPAIRED?NO READINESS TO LEARN?YES LEARNING PREFERENCES?NO LEARNING CAPABILITIES PRESENT?YES EMOTIONAL BARRIERS?NO 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 CONSTITUTIONAL: ANY CHANGE IN YOUR MEDICAL CONDITION? NO . CHILLS NO . FEVER NO . INFECTION: DO YOU HAVE NEW INFECTIONS? NO . DO YOU HAVE HISTORY OF MRSA? NO . MUSCULOSKELETAL: ANY NEW PATTERNS OF PAIN OR NUMBNESS? NO . GASTROENTEROLOGY: ANY NEW CHANGE IN BOWEL CONTROL? NO . GENITOURINARY: ANY NEW CHANGE IN BLADDER CONTROL? NO . IS THERE A CHANCE YOU COULD BE ? NO . HEMATOLOGY/LYMPH: DO YOU TAKE ANY BLOOD THINNERS? (FOR EXAMPLE- COUMADIN, PLAVIX, AGGRENOX, PLATEL, PRADAXA, OR XARELTO) YES, XARALTO . WHEN WAS YOUR LAST DOSE? DATE: TIME: 10-26-17 5PM . NEUROLOGY: HAVE YOU FALLEN IN THE PAST 6 MONTHS? NO . ANY NEW EXTREMITY NUMBNESS OR WEAKNESS? NO . CARDIOLOGY: DO YOU HAVE A PACEMAKER OR DEFIBRILLATOR? YES, PACEMAKER . RESPIRATORY: HAVE YOU BEEN SICK IN THE PAST WEEK? NO . FEVER NO . FLU LIKE SYMPTOMS? NO . COUGH NO . INTEGUMENTARY: DO YOU HAVE ANY RASHES OR OPEN SORES? NO . ALLERGIC/IMMUNO: ARE YOU ALLERGIC TO SHELLFISH OR IV DYE? NO . ANY NEW ALLERGIES? NO . PSYCHIATRIC: DO YOU HAVE THOUGHTS OF HURTING YOURSELF OR SOMEONE ELSE? NO . ARE YOU ABUSED, NEGLECTED, OR IN AN UNSAFE ENVIRONMENT? NO . ENDOCRINOLOGY: ARE YOU DIABETIC? YES . OTHER: DO YOU NEED ANY PRESCRIPTIONS? NO . IF YES, PLEASE LIST: ____ . ANY NEW PROBLEMS WITH YOUR MEDICATIONS? NO . WHEN DID YOU LAST EAT? ____ . WHEN DID YOU LAST DRINK? ____ . WHAT DID YOU LAST DRINK? ____ . NAME OF PERSON DRIVING YOU HOME? ____ . DO YOU HAVE ANY OTHER QUESTIONS OR CONCERNS NO . VITAL SIGNS WT 239 LBS, HT 63 IN, BMI 42.33 INDEX, BP 99/56 MM HG, REPEAT BP 101/58 MM HG, HR 104 /MIN, RR 16 /MIN, TEMP 97.3 F, OXYGEN SAT % 91%, NA INITIALS SC11:18NURES IS AWARE OF PT,S VITALS.PT'S REPEAT VS B/P IMPROVED. HR IRREGULAR, RANGING FROM 79-105, O2 SAT+ 95% PATIENT DENIES C/O. SEES HER PCP ON . LESLIE GUILLEN AWARE. CM. EXAMINATION GENERAL EXAMINATION: PSYCHALERT , ORIENTED X 3 , APPROPRIATE MOOD AND AFFECT . LUNGS:CLEAR TO AUSCULTATION BILATERALLY. HEART:HEART RATE IR- REGULAR. , II/ SYSTOLIC MURMUR. MUSCULOSKELETAL:GAIT STEPPING. VERY DIFFICULT TIME RISING TO STANDING POSITION OR RETURNING TO SEATED POSITION. MILD TENDERNESS WITH PALPATION OVER LUMBOSACRAL AXIS. WEAKESS IN BOTH LOWER EXTREMITIES. WALKER USED FOR BALANCE. 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 USE WALKER. CLINICAL NOTES: ISTOP REGISTRY REVIEWED AND DEMNOSTRATES COMPLLIANCE. (REF # [id number]) BRINGS IN MEDICATIONS WHICH IS APPROPRIATE FOR WHAT WAS DISPENSED. RECENT URINE TOXICOLOGY REVIEWED. NO UNAUTHORIZED MEDICATIONS. NO ILLICIT SUBSTANCES AND PRESCRIBED MEDICATIONS WERE PRESENT. PROCEDURE CODES FA211 ESTABILISHED PATIENT [facility] CHARGE G8730 PAIN ASSESS POS TOOL F/U PLAN DOC G8427 DOC MEDS VERIFIED W/PT OR RE DISPOSITION & COMMUNICATION FOLLOW UP 3 MONTHS (REASON: BACK PAIN) ELECTRONICALLY SIGNED BY CHRISTINE CURTIS ON 07/14/2017 AT 08:53 PM EST DISCLAIMER : THIS IS A VISIT SUMMARY EXTRACTED FROM THE [employer] CHART. IT IS NOT A COPY OF THE [employer] PROGRESS NOTE. CACHORRO
== END ==
LOC: M PAIN 10:45
PROVIDERS: ATTEND Nurse Practitioner Family
DX: M48.061 Spinal stenosis, lumbar region without neurogenic claudication (principal); M46.1 Sacroiliitis, not elsewhere classified; E11.9 Type 2 diabetes mellitus without complications; I10 Essential (primary) hypertension; L40.9 Psoriasis, unspecified; R01.1 Cardiac murmur, unspecified; Z85.828 Personal history of other malignant neoplasm of skin; Z79.891 Long term (current) use of opiate analgesic; Z79.899 Other long term (current) drug therapy; Z79.84 Long term (current) use of oral hypoglycemic drugs; Z88.1 Allergy status to other antibiotic agents; Z88.2 Allergy status to sulfonamides; Z88.8 Allergy status to other drugs, medicaments and biological substances

== ENCOUNTER 2017-06-30 10:45 | Emergency (ER) | payer MEDICARE ==
[~2017-06-30] VITALS: Ht 157.5 cm; Wt 110.9 kg
[2017-06-30 14:06] VITALS: BP 107/59
--- NOTE | 2017-06-30 14:10 | REP ---
LEFT SHOULDER, THREE VIEWS: HISTORY: Trauma. There is no acute fracture or dislocation. There is narrowing of the acromioclavicular joint space. IMPRESSION: There is no acute fracture or dislocation. Signed by Beau Sawyer MD 06/30/2017 02:20 P
--- NOTE | 2017-06-30 14:11 | REP ---
LEFT KNEE, FOUR VIEWS: HISTORY: Trauma. There is no acute fracture or dislocation. There is narrowing of the joint spaces. An osteophyte is present on the inferior patella. IMPRESSION: There is no acute fracture or dislocation. Signed by Beau Sawyer MD 06/30/2017 02:20 P
== END 2017-06-30 14:46 | disposition home or self-care (01) ==
LOC: M ED 10:45
DX: S80.02XA Contusion of left knee, initial encounter (principal); S40.012A Contusion of left shoulder, initial encounter; W01.198A Fall on same level from slipping, tripping and stumbling with subsequent striking against other object, initial encounter; Y92.099 Unspecified place in other non-institutional residence as the place of occurrence of the external cause; Y93.89 Activity, other specified; Y99.9 Unspecified external cause status

== ENCOUNTER → 2017-07-25 | Outpatient (REF) | payer MEDICARE | LOC: M LAB REF 13:54 | PROVIDERS: ATTEND Surgery | DX: C44.41 Basal cell carcinoma of skin of scalp and neck (principal) ==

== ENCOUNTER → 2017-09-06 | Outpatient (REF) | payer MEDICARE | LOC: M LAB REF 18:13 | DX: L57.0 Actinic keratosis (principal) | CPT/HCPCS: 88305 ==

== ENCOUNTER → 2017-09-13 | Outpatient (CLI) | payer MEDICARE | LOC: M PAIN 11:00 | DX: M48.061 Spinal stenosis, lumbar region without neurogenic claudication (principal); M46.1 Sacroiliitis, not elsewhere classified; E11.9 Type 2 diabetes mellitus without complications; I10 Essential (primary) hypertension; Z79.4 Long term (current) use of insulin; Z79.891 Long term (current) use of opiate analgesic; Z79.899 Other long term (current) drug therapy; Z88.8 Allergy status to other drugs, medicaments and biological substances; Z88.2 Allergy status to sulfonamides; Z88.1 Allergy status to other antibiotic agents | CPT/HCPCS: G0463 ==

== ENCOUNTER → 2017-12-12 | Outpatient (CLI) | payer MEDICARE | LOC: M PAIN 10:30 | DX: M48.061 Spinal stenosis, lumbar region without neurogenic claudication (principal); M46.1 Sacroiliitis, not elsewhere classified; E78.00 Pure hypercholesterolemia, unspecified; E11.9 Type 2 diabetes mellitus without complications; I10 Essential (primary) hypertension; Z79.891 Long term (current) use of opiate analgesic; Z79.899 Other long term (current) drug therapy; Z88.8 Allergy status to other drugs, medicaments and biological substances | CPT/HCPCS: G0463 ==

== ENCOUNTER → 2018-03-13 | Outpatient (CLI) | payer MEDICARE | LOC: M PAIN 10:30 | DX: M48.061 Spinal stenosis, lumbar region without neurogenic claudication (principal); M46.1 Sacroiliitis, not elsewhere classified; E78.00 Pure hypercholesterolemia, unspecified; I10 Essential (primary) hypertension; M19.90 Unspecified osteoarthritis, unspecified site; E11.9 Type 2 diabetes mellitus without complications; L40.9 Psoriasis, unspecified; Z79.01 Long term (current) use of anticoagulants; Z79.891 Long term (current) use of opiate analgesic; Z79.899 Other long term (current) drug therapy; Z88.1 Allergy status to other antibiotic agents; Z88.2 Allergy status to sulfonamides; Z88.5 Allergy status to narcotic agent; Z88.8 Allergy status to other drugs, medicaments and biological substances; Z95.0 Presence of cardiac pacemaker | CPT/HCPCS: G0463 ==

== ENCOUNTER → 2018-05-14 | Outpatient (CLI) | payer MEDICARE | LOC: M PAIN 10:30 | DX: M48.061 Spinal stenosis, lumbar region without neurogenic claudication (principal); M46.1 Sacroiliitis, not elsewhere classified; E78.00 Pure hypercholesterolemia, unspecified; I10 Essential (primary) hypertension; E11.9 Type 2 diabetes mellitus without complications; Z79.891 Long term (current) use of opiate analgesic; Z79.84 Long term (current) use of oral hypoglycemic drugs; Z79.899 Other long term (current) drug therapy; Z88.8 Allergy status to other drugs, medicaments and biological substances | CPT/HCPCS: G0463 ==

== ENCOUNTER → 2018-06-27 | Outpatient (REF) | payer MEDICARE | LOC: M LAB REF 16:40 | DX: N39.0 Urinary tract infection, site not specified (principal) | CPT/HCPCS: 87186 ==

== ENCOUNTER → 2018-11-04 | Outpatient (CLI) | payer MEDICARE ==
[~2018-11-04] MED LIST changes: -GABA-283 PO; +GABA-845 PO
--- NOTE | 2018-11-20 01:27 | ECWPNPC ---
PATIENT NAME: SOCO FRANKLIN : 1935 GENDER: FEMALE VISIT DATE: 11/04/2018 DISCHARGE DATE: 11/04/18 1257 VISIT LOCKED DATE TIME: PHYSICIAN: ALBERTINA SHANE RESOURCE: ALBERTINA SHANE REASON FOR APPOINTMENT 1. BACK/LEGS HISTORY OF PRESENT ILLNESS HISTORY OF PRESENT ILLNESS: HERE FOR F/U OF CHRONIC LOW BACK PAIN AND RIGHT LEG PAIN.PAIN HAS ESCALATED OVER THE PAST 7-10 DAYS.CURRENTLY USING HYDROCODONE 5/325 MG UP TO 3X PER DAY.DOENT FEEL MEDICINE IS EFFECTIVE ANYMORE.RATING PAIN VAS 9/10.SHE IS NOT INTERESTED IN INJECTION THERAPY.STATES SHE HAS HAD BAD REACTIONS TO THEM IN PAST.ACCOMPANIED IN EXAM ROOM W HER SON WHO LIVES WITH HER AND IS HER PRIMARY CARE PROVIDER. PAIN THE PATIENT DESCRIBES THE PAIN... FALL RISK SCREENING: SCREENING : NO FALLS IN THE PAST YEAR. CURRENT MEDICATIONS TAKING VITAMIN C 500 MG TABLET CHEWABLE DIRECTED ORALLY DAILY TAKING VITAMIN D 3000 CAPSULE 1 TABLET ORALLY ONCE A DAY TAKING PRILOSEC OTC 20 MG TABLET DELAYED RELEASE 1 TABLET ORALLY ONCE A DAY TAKING JANUVIA 100 MG TABLET 1 TABLET ORALLY ONCE A DAY TAKING CALCIUM 600 + D 600-400 MG-UNIT TABLET 2 TABLETS ORALLY TWICE DAILY TAKING AMIODARONE HCL 200 MG TABLET 1 TABLET ORALLY ONCE A DAY TAKING BYSTOLIC 5 MG TABLET 1 TABLET ORALLY ONCE A DAY TAKING XARELTO 20 MG TABLET 1 TABLET WITH FOOD ORALLY ONCE A DAY TAKING SPIRONOLACTONE 25 MG TABLET 1 TABLET ORALLY QD TAKING IRBESARTAN 75 MG TABLET 1 TABLET ORALLY ONCE A DAY TAKING PRAVASTATIN SODIUM 10 MG TABLET 1 TABLET ORALLY ONCE A DAY TAKING LIDOCAINE 5 % OINTMENT 1 APPLICATION TO AFFECTED AREA NEEDED EXTERNALLY FOUR TIMES DAILY TAKING TYLENOL 325 MG TABLET 1 TABLET NEEDED ORALLY EVERY 6 HRS TAKING FUROSEMIDE 40 MG TABLET 1 TABLET ORALLY ONCE A DAY TAKING FIBER - TABLET 1 TAB ORALLY TWICE A DAY TAKING LUMIGAN 0.01 % SOLUTION 1 DROP INTO AFFECTED EYE IN THE EVENING OPHTHALMIC ONCE A DAY TAKING CYMBALTA 60 MG CAPSULE DELAYED RELEASE PARTICLES 1 CAPSULE ORALLY ONCE A DAY TAKING PRAMIPEXOLE DIHYDROCHLORIDE 0.25 MG TABLET 1 TABLET BEFORE BEDTIME ORALLY ONCE A DAY TAKING NORCO 5-325 MG TABLET 1 TABLET ORALLY EVERY 6 HRS PRN PAIN MDD=2 TAKING GABAPENTIN 400 MG CAPSULE 1 CAPSULE ORALLY THREE TIMES DAILY TAKING METHOTREXATE 2.5 MG TABLET 2 TAB(S) ORALLY WEEKLY TAKING FOLIC ACID 1 MG TABLET 1 TABLET ORALLY ONCE A DAY EXCEPT ON SAT NOT-TAKING DOVONEX 0.005 % CREAM 1 APPLICATION TO AFFECTED AREA EXTERNALLY TWICE A DAY MEDICATION LIST REVIEWED AND RECONCILED WITH THE PATIENT PAST MEDICAL HISTORY HIGH CHOLESTEROL HIGH BLOOD PRESSURE ARTHRITIS DIABETES MALLITUS PSORIASIS CHRONIC DRY EYES SKIN CANCERS (SCC) GLAUCOMA ALLERGIES ESTROGENS CONJ SYNTHETIC A: RASH CLOBETASOL PROPIONATE: RASH IMIQUIMOD: RASH CLINDAMYCIN HCL: RASH TRAMADOL: NAUSEA ,VOMITTING AND DIZZINESS PRAMIPEXOLE DIHYDROCHLORIDE: MUSCLE JERKING, URINARY RETENTION SURGICAL HISTORY HYSTERECTOMY BLADDER SURGERY LENS IMPLANT SKIN CANCER EXCISION FRACTURE REPAIR FAMILY HISTORY FATHER: DIAGNOSED WITH HEART DISEASE SOCIAL HISTORY GENERAL: TOBACCO USE ARE YOU A:NONSMOKER LATEX QUESTIONNAIRE LATEX ALLERGY : HAVE YOU EVER DEVELOPED ANY TYPE OF REACTION AFTER HANDLING LATEX PRODUCTS SUCH RUBBER GLOVES, CONDOMS, DIAPHRAGMS, BALLOONS, SOCKS, OR UNDERWEAR?NO LATEX ALLERGY : HAVE YOU EVER DEVELOPED ANY TYPE OF REACTION DURING OR AFTER DENTAL APPOINTMENT, VAGINAL/RECTAL EXAMINATION, SURGICAL PROCEDURE, OR ANY OTHER EXPOSURE?NO LATEX RISK : HAVE YOU EVER HAD ANY DIFFICULTY BREATHING OR HIVES AFTER EATING OR HANDLING ANY FRUITS, OR VEGETABLES; SUCH KIWI, BANANAS, STONE FRUITS, OR CHESTNUTSNO LATEX RISK : DO YOU HAVE A PREVIOUS PERSONAL HISTORY OF MORE THAN NINE SURGERIES, SPINA BIFIDA, OR REPEATED CATHERTIZATIONS? NO LATEX RISK : ARE YOU FREQUENTLY EXPOSED TO LATEX PRODUCTS IN YOUR OCCUPATION?NO DATE ASKED : 11/04/2018 ALCOHOL SCREENING DID YOU HAVE A DRINK CONTAINING ALCOHOL IN THE PAST YEAR?NO POINTS0 INTERPRETATIONNEGATIVE RECREATIONAL DRUG USE DRUG USE?NO CAFFEINE CAFFEINE USE?YES HOW OFTEN AND HOW MUCH? 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 PAIN DIARY TODAY'S VISITNOTES FROM 0-10, WHAT LEVEL IS YOUR PAIN TODAY?5 PAIN CLINIC PFS, CLERGY, PUBLIC HEALTH REFERRALS PFS REFERRAL NEEDED?NO CLERGY REFERRAL NEEDED?NO PUBLIC HEALTH REFERRAL NEEDED?NO WAS THE PROVIDER NOTIFIED OF ANY PERTINENT INFO?NO HAS THE PATIENT BEEN EDUCATED REGARDING HIS/HER PLAN OF CARE?YES HAS THE PATIENT BEEN EDUCATED REGARDING PAIN, THE RISK FOR PAIN, THE IMPORTANCE OF EFFECTIVE PAIN MANAGEMENT, AND THE PAIN ASSESSMENT PROCESS?YES ADVANCE DIRECTIVE ADVANCE DIRECTIVE DISCUSSED WITH PATIENT:YES HCP - JAYNA FRANKLIN [phone] REVIEWED WITH PATIENT 05/14/18 1113 JSREVIEWED WITH PATIENT 08/06/18 1137 BVREVIEWED WITH PT 11/04/18 1215 BV. HOSPITALIZATION/MAJOR DIAGNOSTIC PROCEDURE NO HOSPITALIZATION HISTORY. REVIEW OF SYSTEMS REVIEWED BY: PROVIDER: ALBERTINA AVINA . CONSTITUTIONAL: ANY CHANGE IN YOUR MEDICAL CONDITION? NO . CHILLS NO . FEVER NO . INFECTION: DO YOU HAVE NEW INFECTIONS? NO . DO YOU HAVE HISTORY OF MRSA? NO . MUSCULOSKELETAL: ANY NEW PATTERNS OF PAIN OR NUMBNESS? YES, PT HAS HAD INCREASE IN PAIN INTENSITY OVER THE PAST 1.5 WEEKS. . GASTROENTEROLOGY: ANY NEW CHANGE IN BOWEL CONTROL? NO . GENITOURINARY: ANY NEW CHANGE IN BLADDER CONTROL? NO . IS THERE A CHANCE YOU COULD BE ? NO . HEMATOLOGY/LYMPH: DO YOU TAKE ANY BLOOD THINNERS? (FOR EXAMPLE- COUMADIN, PLAVIX, AGGRENOX, PLATEL, PRADAXA, OR XARELTO) YES, XARELTO . WHEN WAS YOUR LAST DOSE? DATE: TIME: . NEUROLOGY: HAVE YOU FALLEN IN THE PAST 12 MONTHS? NO . ANY NEW EXTREMITY NUMBNESS OR WEAKNESS? NO . CARDIOLOGY: DO YOU HAVE A PACEMAKER OR DEFIBRILLATOR? YES, PACEMAKER . RESPIRATORY: HAVE YOU BEEN SICK IN THE PAST WEEK? NO . FEVER NO . FLU LIKE SYMPTOMS? NO . COUGH NO . INTEGUMENTARY: DO YOU HAVE ANY RASHES OR OPEN SORES? NO . ALLERGIC/IMMUNO: ARE YOU ALLERGIC TO IV DYE? NO . ANY NEW ALLERGIES? NO . PSYCHIATRIC: DO YOU HAVE THOUGHTS OF HURTING YOURSELF OR SOMEONE ELSE? NO . ARE YOU ABUSED, NEGLECTED, OR IN AN UNSAFE ENVIRONMENT? NO . ENDOCRINOLOGY: ARE YOU DIABETIC? NO . OTHER: DO YOU NEED ANY PRESCRIPTIONS? NO . IF YES, PLEASE LIST: ____ . ANY NEW PROBLEMS WITH YOUR MEDICATIONS? NO . WHEN DID YOU LAST EAT? ____ . WHEN DID YOU LAST DRINK? ____ . WHAT DID YOU LAST DRINK? ____ . NAME OF PERSON DRIVING YOU HOME? ____ . DO YOU HAVE ANY OTHER QUESTIONS OR CONCERNS NO . VITAL SIGNS WT 236 LBS, HT 63 IN, BMI 41.80 INDEX, BP 118/58 MM HG, HR 76 /MIN, RR 18 /MIN, TEMP 96.7 F, OXYGEN SAT % 95%, NA INITIALS SC 11:50, REVIEWED BY: BV. EXAMINATION GENERAL EXAMINATION: GENERAL APPEARANCE:AWAKE,ALERT ,PLEAASANT . PSYCHAFFECT NORMAL . LUNGS:LUNG [place]AG[place] ARE CLEAR TO AUSCULTATION BILATERALLY. GOOD MOVEMENT OF AIR . HEART:S1, S2 IN A REGULAR RATE AND RHYTHM. NO SIGNIFICANT MURMURS, RUBS OR GALLOPS NOTED . 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 BRINGS IN MEDICATIONS WHICH IS APPROPRIATE FOR WHAT WAS DISPENSED. RECENT URINE TOXICOLOGY REVIEWED. NO UNAUTHORIZED MEDICATIONS. NO ILLICIT SUBSTANCES AND PRESCRIBED MEDICATIONS WERE PRESENT. , RISKS AND BENEFITS OF NARCOTIC/OPIOD MEDICATIONS WERE REVIEWED WITH PATIENT - THIS INCLUDES BUT IS NOT LIMITED TO RISK OF DEPENDANCE/DEVELOPMENT OF ADDICTION, MOOD DISTURBANCE AND DEPRESSION, OSTEOPOROSIS, HORMONAL AND LABIDAL CHANGES, RESPIRATORY DEPRESSION AND . PATIENT IS ADVISED NOT TO DRIVE OR DRINK ALCOHOL WHILE ON THESE MEDICATIONS. PROCEDURE CODES FA211 ESTABILISHED PATIENT [facility] CHARGE DISPOSITION & COMMUNICATION FOLLOW UP 2 MONTHS ELECTRONICALLY SIGNED BY KAILYN PUGA ON 11/19/2018 AT 09:34 AM EDT DISCLAIMER : THIS IS A VISIT SUMMARY EXTRACTED FROM THE [employer] CHART. IT IS NOT A COPY OF THE [employer] PROGRESS NOTE. CACHORRO
== END ==
LOC: M PAIN 11:30
PROVIDERS: ATTEND Nurse Practitioner Family
DX: M48.061 Spinal stenosis, lumbar region without neurogenic claudication (principal); M47.16 Other spondylosis with myelopathy, lumbar region; G89.29 Other chronic pain; E11.9 Type 2 diabetes mellitus without complications; I10 Essential (primary) hypertension; M19.90 Unspecified osteoarthritis, unspecified site; E78.00 Pure hypercholesterolemia, unspecified; L40.9 Psoriasis, unspecified; E66.01 Morbid (severe) obesity due to excess calories; Z68.41 Body mass index [BMI] 40.0-44.9, adult; Z79.01 Long term (current) use of anticoagulants; Z79.891 Long term (current) use of opiate analgesic; Z79.899 Other long term (current) drug therapy; Z95.0 Presence of cardiac pacemaker; Z88.1 Allergy status to other antibiotic agents; Z88.5 Allergy status to narcotic agent; Z88.8 Allergy status to other drugs, medicaments and biological substances

== ENCOUNTER → 2018-11-18 | Outpatient (CLI) | payer MEDICARE ==
[~2018-11-18] MED LIST changes: -/AMIO20TA PO; -/CELE20CA; +AMIO1TAB PO; +CELE1CAP4; -DULO30CA PO; +DULO30CA9 PO; -METH2.5T3 PO; +METH2.5TA PO
--- NOTE | 2018-11-28 01:01 | ECWPNPC ---
PATIENT NAME: SOCO FRANKLIN : 1935 GENDER: FEMALE VISIT DATE: 11/18/2018 DISCHARGE DATE: 11/18/18 1526 VISIT LOCKED DATE TIME: PHYSICIAN: ALBERTINA SHANE RESOURCE: ALBERTINA SHANE REASON FOR APPOINTMENT 1. INCREASING PAIN HISTORY OF PRESENT ILLNESS HISTORY OF PRESENT ILLNESS: HERE ON URGENT BASIS TO EVALUATE INCREASE IN PAIN.LAST VISIT WAS 2 WEEKS AGO.SHE REPORTS ACTIVITY INTOLERANCE DUE TO PAIN.THIS IS DESPITE AN INCREASE IN HYDROCODONE 2 WEEKS AGO.ACCOMPANIED IN EXAM ROOM WITH HER SON WHO IS HER NON DESTRUCTIVE EVALUATION SPECIALIST.RATING PAIN VAS 7/10.SHE IS IN WHEELCHAIR.NO ACUTE DISTRESS. PAIN THE PATIENT DESCRIBES THE PAIN... FALL RISK SCREENING: SCREENING :TWO OR MORE FALLS WITHOUT INJURY IN THE PAST YEAR PT. USING A WALKER CURRENT MEDICATIONS TAKING VITAMIN C 500 MG TABLET CHEWABLE DIRECTED ORALLY DAILY TAKING VITAMIN D 3000 CAPSULE 1 TABLET ORALLY ONCE A DAY TAKING PRILOSEC OTC 20 MG TABLET DELAYED RELEASE 1 TABLET ORALLY ONCE A DAY TAKING JANUVIA 100 MG TABLET 1 TABLET ORALLY ONCE A DAY TAKING CALCIUM 600 + D 600-400 MG-UNIT TABLET 2 TABLETS ORALLY TWICE DAILY TAKING AMIODARONE HCL 200 MG TABLET 1 TABLET ORALLY ONCE A DAY TAKING BYSTOLIC 5 MG TABLET 1 TABLET ORALLY ONCE A DAY TAKING XARELTO 20 MG TABLET 1 TABLET WITH FOOD ORALLY ONCE A DAY TAKING SPIRONOLACTONE 25 MG TABLET 1 TABLET ORALLY QD TAKING IRBESARTAN 75 MG TABLET 1 TABLET ORALLY ONCE A DAY TAKING PRAVASTATIN SODIUM 10 MG TABLET 1 TABLET ORALLY ONCE A DAY TAKING LIDOCAINE 5 % OINTMENT 1 APPLICATION TO AFFECTED AREA NEEDED EXTERNALLY FOUR TIMES DAILY TAKING TYLENOL 325 MG TABLET 1 TABLET NEEDED ORALLY EVERY 6 HRS TAKING FUROSEMIDE 40 MG TABLET 1 TABLET ORALLY ONCE A DAY TAKING FIBER - TABLET 1 TAB ORALLY TWICE A DAY TAKING LUMIGAN 0.01 % SOLUTION 1 DROP INTO AFFECTED EYE IN THE EVENING OPHTHALMIC ONCE A DAY TAKING CYMBALTA 60 MG CAPSULE DELAYED RELEASE PARTICLES 1 CAPSULE ORALLY ONCE A DAY TAKING PRAMIPEXOLE DIHYDROCHLORIDE 0.25 MG TABLET 1 TABLET BEFORE BEDTIME ORALLY ONCE A DAY TAKING METHOTREXATE 2.5 MG TABLET 2 TAB(S) ORALLY WEEKLY TAKING FOLIC ACID 1 MG TABLET 1 TABLET ORALLY ONCE A DAY EXCEPT ON SAT TAKING GABAPENTIN 400 MG CAPSULE 1 CAPSULE ORALLY THREE TIMES DAILY TAKING NORCO 7.5-325 MG TABLET 1 TABLET ORALLY Q8H PRN MDD3 DISCONTINUED DOVONEX 0.005 % CREAM 1 APPLICATION TO AFFECTED AREA EXTERNALLY TWICE A DAY MEDICATION LIST REVIEWED AND RECONCILED WITH THE PATIENT PAST MEDICAL HISTORY HIGH CHOLESTEROL HIGH BLOOD PRESSURE ARTHRITIS DIABETES MALLITUS PSORIASIS CHRONIC DRY EYES SKIN CANCERS (SCC) GLAUCOMA ALLERGIES ESTROGENS CONJ SYNTHETIC A: RASH CLOBETASOL PROPIONATE: RASH IMIQUIMOD: RASH CLINDAMYCIN HCL: RASH TRAMADOL: NAUSEA ,VOMITTING AND DIZZINESS PRAMIPEXOLE DIHYDROCHLORIDE: MUSCLE JERKING, URINARY RETENTION SURGICAL HISTORY HYSTERECTOMY BLADDER SURGERY LENS IMPLANT SKIN CANCER EXCISION FRACTURE REPAIR FAMILY HISTORY FATHER: , DIAGNOSED WITH HEART DISEASE MOTHER: , CANCER 1 SISTER(S) - HEALTHY. 2 SON(S) , 1 DAUGHTER(S) - HEALTHY. 2 SISTERS FROM CANCER2 SON HAS HEART DIEASE. SOCIAL HISTORY GENERAL: TOBACCO USE ARE YOU A:NONSMOKER LATEX QUESTIONNAIRE LATEX ALLERGY : HAVE YOU EVER DEVELOPED ANY TYPE OF REACTION AFTER HANDLING LATEX PRODUCTS SUCH RUBBER GLOVES, CONDOMS, DIAPHRAGMS, BALLOONS, SOCKS, OR UNDERWEAR?NO LATEX ALLERGY : HAVE YOU EVER DEVELOPED ANY TYPE OF REACTION DURING OR AFTER DENTAL APPOINTMENT, VAGINAL/RECTAL EXAMINATION, SURGICAL PROCEDURE, OR ANY OTHER EXPOSURE?NO LATEX RISK : HAVE YOU EVER HAD ANY DIFFICULTY BREATHING OR HIVES AFTER EATING OR HANDLING ANY FRUITS, OR VEGETABLES; SUCH KIWI, BANANAS, STONE FRUITS, OR CHESTNUTSNO LATEX RISK : DO YOU HAVE A PREVIOUS PERSONAL HISTORY OF MORE THAN NINE SURGERIES, SPINA BIFIDA, OR REPEATED CATHERTIZATIONS? NO LATEX RISK : ARE YOU FREQUENTLY EXPOSED TO LATEX PRODUCTS IN YOUR OCCUPATION?NO DATE ASKED : 11/18/2018 ALCOHOL SCREENING DID YOU HAVE A DRINK CONTAINING ALCOHOL IN THE PAST YEAR?NO POINTS0 INTERPRETATIONNEGATIVE RECREATIONAL DRUG USE DRUG USE?NO CAFFEINE CAFFEINE USE?YES HOW OFTEN AND HOW MUCH? 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 DIET: REGULAR. EXERCISE: NONE. MARITAL STATUS: . OTHERS AT HOME: CHILD, IN-LAW(S). NEW PATIENT PAIN DIARY TODAY'S VISITNOTES FROM 0-10, WHAT LEVEL IS YOUR PAIN TODAY?5 PAIN CLINIC PFS, CLERGY, PUBLIC HEALTH REFERRALS PFS REFERRAL NEEDED?NO CLERGY REFERRAL NEEDED?NO PUBLIC HEALTH REFERRAL NEEDED?NO WAS THE PROVIDER NOTIFIED OF ANY PERTINENT INFO?NO HAS THE PATIENT BEEN EDUCATED REGARDING HIS/HER PLAN OF CARE?YES HAS THE PATIENT BEEN EDUCATED REGARDING PAIN, THE RISK FOR PAIN, THE IMPORTANCE OF EFFECTIVE PAIN MANAGEMENT, AND THE PAIN ASSESSMENT PROCESS?YES ADVANCE DIRECTIVE ADVANCE DIRECTIVE DISCUSSED WITH PATIENT:YES HCP - JAYNA FRANKLIN [phone] REVIEWED WITH PATIENT 05/14/18 1113 JSREVIEWED WITH PATIENT 08/06/18 1137 BVREVIEWED WITH PT 11/04/18 1215 BVREVIEWED WITH PT. 11/18/18 VD. HOSPITALIZATION/MAJOR DIAGNOSTIC PROCEDURE SURGERIES AND CHILDBIRTH REVIEW OF SYSTEMS REVIEWED BY: PROVIDER: ALBERTINA AVINA . CONSTITUTIONAL: ANY CHANGE IN YOUR MEDICAL CONDITION? NO . CHILLS NO . FEVER NO . INFECTION: DO YOU HAVE NEW INFECTIONS? NO . DO YOU HAVE HISTORY OF MRSA? NO . MUSCULOSKELETAL: ANY NEW PATTERNS OF PAIN OR NUMBNESS? NO . GASTROENTEROLOGY: ANY NEW CHANGE IN BOWEL CONTROL? NO . GENITOURINARY: ANY NEW CHANGE IN BLADDER CONTROL? YES . IS THERE A CHANCE YOU COULD BE ? NO . HEMATOLOGY/LYMPH: DO YOU TAKE ANY BLOOD THINNERS? (FOR EXAMPLE- COUMADIN, PLAVIX, AGGRENOX, PLATEL, PRADAXA, OR XARELTO) YES . WHEN WAS YOUR LAST DOSE? DATE: TIME: 11/17/18@1800 <11/17/18@1800> . NEUROLOGY: HAVE YOU FALLEN IN THE PAST 12 MONTHS? YES . ANY NEW EXTREMITY NUMBNESS OR WEAKNESS? NO . CARDIOLOGY: DO YOU HAVE A PACEMAKER OR DEFIBRILLATOR? YES . RESPIRATORY: HAVE YOU BEEN SICK IN THE PAST WEEK? NO . FEVER NO . FLU LIKE SYMPTOMS? NO . COUGH NO . INTEGUMENTARY: DO YOU HAVE ANY RASHES OR OPEN SORES? NO . ALLERGIC/IMMUNO: ARE YOU ALLERGIC TO IV DYE? NO . ANY NEW ALLERGIES? NO . PSYCHIATRIC: DO YOU HAVE THOUGHTS OF HURTING YOURSELF OR SOMEONE ELSE? NO . ARE YOU ABUSED, NEGLECTED, OR IN AN UNSAFE ENVIRONMENT? NO . ENDOCRINOLOGY: ARE YOU DIABETIC? YES . OTHER: DO YOU NEED ANY PRESCRIPTIONS? YES . IF YES, PLEASE LIST: ____HYDROCODONE 7.5 MG AND GABAPENTIN . ANY NEW PROBLEMS WITH YOUR MEDICATIONS? NO . WHEN DID YOU LAST EAT? ____ . WHEN DID YOU LAST DRINK? ____ . WHAT DID YOU LAST DRINK? ____ . NAME OF PERSON DRIVING YOU HOME? ____ . DO YOU HAVE ANY OTHER QUESTIONS OR CONCERNS NO . VITAL SIGNS WT 235 LBS, HT 63 IN, BMI 41.62 INDEX, BP 102/55 MM HG, HR 99 /MIN, RR 18 /MIN, TEMP 98.3 F, OXYGEN SAT % 92%, SAFE IN ENV? (Y/N) YES, NA INITIALS AW 1402, REVIEWED BY: [id number]. EXAMINATION GENERAL EXAMINATION: GENERAL APPEARANCE:AWAKE,ALERT ,PLEAASANT . PSYCHAFFECT NORMAL . LUNGS:LUNG [place] ARE CLEAR TO AUSCULTATION BILATERALLY. GOOD MOVEMENT OF AIR . HEART:S1, S2 IN A REGULAR RATE AND RHYTHM. NO SIGNIFICANT MURMURS, RUBS OR GALLOPS NOTED . 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 BRINGS IN MEDICATIONS WHICH IS APPROPRIATE FOR WHAT WAS DISPENSED. RECENT URINE TOXICOLOGY REVIEWED. NO UNAUTHORIZED MEDICATIONS. NO ILLICIT SUBSTANCES AND PRESCRIBED MEDICATIONS WERE PRESENT. PROCEDURE CODES [id number] ESTABILISHED PATIENT [facility] CHARGE DISPOSITION & COMMUNICATION FOLLOW UP 3 TO 4 WEEKS ELECTRONICALLY SIGNED BY KAILYN PUGA ON 11/27/2018 AT 09:29 AM EDT DISCLAIMER : THIS IS A VISIT SUMMARY EXTRACTED FROM THE [employer] CHART. IT IS NOT A COPY OF THE [employer] PROGRESS NOTE. CACHORRO
== END ==
LOC: M PAIN 13:45
PROVIDERS: ATTEND Nurse Practitioner Family
DX: M48.061 Spinal stenosis, lumbar region without neurogenic claudication (principal); M47.16 Other spondylosis with myelopathy, lumbar region; E78.00 Pure hypercholesterolemia, unspecified; R03.0 Elevated blood-pressure reading, without diagnosis of hypertension; E11.9 Type 2 diabetes mellitus without complications; L40.9 Psoriasis, unspecified; H40.9 Unspecified glaucoma; H04.123 Dry eye syndrome of bilateral lacrimal glands; Z85.828 Personal history of other malignant neoplasm of skin; Z79.84 Long term (current) use of oral hypoglycemic drugs; Z79.01 Long term (current) use of anticoagulants; Z79.891 Long term (current) use of opiate analgesic; Z79.899 Other long term (current) drug therapy; Z88.1 Allergy status to other antibiotic agents; Z88.5 Allergy status to narcotic agent; Z88.8 Allergy status to other drugs, medicaments and biological substances

== ENCOUNTER → 2018-12-15 | Outpatient (CLI) | payer MEDICARE ==
--- NOTE | 2018-12-30 02:16 | ECWPNPC ---
PATIENT NAME: SOCO FRANKLIN : 1935 GENDER: FEMALE VISIT DATE: 12/15/2018 DISCHARGE DATE: 12/15/18 1218 VISIT LOCKED DATE TIME: PHYSICIAN: ALBERTINA SHANE RESOURCE: ALBERTINA SHANE DISCLAIMER : THIS IS A VISIT SUMMARY [facility]TRACTED FROM THE [facility]. IT IS NOT A COPY OF THE [employer] PROGRESS NOTE. MTDD
== END ==
LOC: M PAIN 11:15
PROVIDERS: ATTEND Nurse Practitioner Family
DX: M48.061 Spinal stenosis, lumbar region without neurogenic claudication (principal); M47.16 Other spondylosis with myelopathy, lumbar region; G89.29 Other chronic pain; E78.00 Pure hypercholesterolemia, unspecified; I10 Essential (primary) hypertension; M19.90 Unspecified osteoarthritis, unspecified site; E11.9 Type 2 diabetes mellitus without complications; Z88.1 Allergy status to other antibiotic agents; Z88.5 Allergy status to narcotic agent; Z88.8 Allergy status to other drugs, medicaments and biological substances; Z79.01 Long term (current) use of anticoagulants; E66.01 Morbid (severe) obesity due to excess calories; Z68.41 Body mass index [BMI] 40.0-44.9, adult; Z79.84 Long term (current) use of oral hypoglycemic drugs; Z79.891 Long term (current) use of opiate analgesic; Z79.899 Other long term (current) drug therapy

== ENCOUNTER → 2019-02-13 | Outpatient (CLI) | payer MEDICARE ==
[~2019-02-13] MED LIST changes: +ACET-683 PO; +ACET-897 PO; +ALDA25TA2 PO; +AMIO200T PO; +AMIO200T37 PO; +ANUSHCSU PR; +ASCO50TA PO; +AVAP150T31 PO; +BIMA01SOL OU; +BYST2.5T2 PO; +BYST5TAB2 PO; +C 50TAB PO; +CALCCAP4 PO; +CARB25TA9 PO; +CEFU1TAB20 PO; +COLA100C5 PO; +CYMB1CAP5 PO; +DULO60CA35 PO; +FOLI1TAB11 PO; +FURO40TA2 PO; +GABA-843 PO; +IRBE75TA5 PO; +JANU100T PO; +LIDO4CRE4 TOP; +METH2.5T48 PO; +MIRA3350 PO; +MOM30SS2 PO; +NORC1TAB8 PO; +OMEP-218 PO; +OMEP-221 PO; +OXYCO5TA PO; +PEG1POW PO; +PRAV10TA3 PO; +SITA50TAB PO; +SPIR-10 PO; +SUCR1TA PO; +VITA30004 PO
--- NOTE | 2019-03-04 02:19 | ECWPNPC ---
PATIENT NAME: SOCO FRANKLIN : 1935 GENDER: FEMALE VISIT DATE: 02/13/2019 DISCHARGE DATE: 02/13/19 1226 VISIT LOCKED DATE TIME: PHYSICIAN: ALBERTINA SHANE RESOURCE: ALBERTINA SHANE REASON FOR APPOINTMENT 1. 2 MONTHS HISTORY OF PRESENT ILLNESS HISTORY OF PRESENT ILLNESS: HERE FOR F/U OF CHRONIC LOW BACK PAIN.OVERALL DOING BETTER.REPORTING IMPROVED SLEEP AND OVERALL WELL BEING AFTER A SLIGHT INCREASE IN HYDROCODONE DOSAGE AND GABAPENTIN A FEW MONTHS AGO.RATING PAIN VAS 5/10. PAIN THE PATIENT DESCRIBES THE PAIN... THE PATIENT DESCRIBES THE PAIN... FALL RISK SCREENING: SCREENING :NO FALLS REPORTED IN THE LAST YEAR CURRENT MEDICATIONS TAKING VITAMIN C 500 MG TABLET CHEWABLE DIRECTED ORALLY DAILY TAKING VITAMIN D 3000 CAPSULE 1 TABLET ORALLY ONCE A DAY TAKING PRILOSEC OTC 20 MG TABLET DELAYED RELEASE 1 TABLET ORALLY ONCE A DAY TAKING JANUVIA 100 MG TABLET 1 TABLET ORALLY ONCE A DAY TAKING CALCIUM 600 + D 600-400 MG-UNIT TABLET 2 TABLETS ORALLY TWICE DAILY TAKING AMIODARONE HCL 200 MG TABLET 1 TABLET ORALLY ONCE A DAY TAKING BYSTOLIC 5 MG TABLET 1 TABLET ORALLY ONCE A DAY TAKING XARELTO 20 MG TABLET 1 TABLET WITH FOOD ORALLY ONCE A DAY TAKING SPIRONOLACTONE 25 MG TABLET 1 TABLET ORALLY QD TAKING IRBESARTAN 75 MG TABLET 1 TABLET ORALLY ONCE A DAY TAKING PRAVASTATIN SODIUM 10 MG TABLET 1 TABLET ORALLY ONCE A DAY TAKING LIDOCAINE 5 % OINTMENT 1 APPLICATION TO AFFECTED AREA NEEDED EXTERNALLY FOUR TIMES DAILY TAKING TYLENOL 325 MG TABLET 1 TABLET NEEDED ORALLY EVERY 6 HRS TAKING FUROSEMIDE 40 MG TABLET 1 TABLET ORALLY ONCE A DAY TAKING FIBER - TABLET 1 TAB ORALLY TWICE A DAY TAKING LUMIGAN 0.01 % SOLUTION 1 DROP INTO AFFECTED EYE IN THE EVENING OPHTHALMIC ONCE A DAY TAKING CYMBALTA 60 MG CAPSULE DELAYED RELEASE PARTICLES 1 CAPSULE ORALLY ONCE A DAY TAKING PRAMIPEXOLE DIHYDROCHLORIDE 0.25 MG TABLET 1 TABLET BEFORE BEDTIME ORALLY ONCE A DAY TAKING METHOTREXATE 2.5 MG TABLET 3 TABS ORALLY WEEKLY TAKING FOLIC ACID 1 MG TABLET 1 TABLET ORALLY ONCE A DAY EXCEPT ON SAT TAKING GABAPENTIN 400 MG CAPSULE 1 CAPSULE ORALLY FOUR TIMES DAILY TAKING NORCO 7.5-325 MG TABLET 1 TO 1 1/2 TAB ORALLY Q8H PRN MDD4 MEDICATION LIST REVIEWED AND RECONCILED WITH THE PATIENT PAST MEDICAL HISTORY HIGH CHOLESTEROL HIGH BLOOD PRESSURE ARTHRITIS DIABETES MALLITUS PSORIASIS CHRONIC DRY EYES SKIN CANCERS (SCC) GLAUCOMA BACK AND LEG PAIN ALLERGIES ESTROGENS CONJ SYNTHETIC A: RASH CLOBETASOL PROPIONATE: RASH IMIQUIMOD: RASH CLINDAMYCIN HCL: RASH TRAMADOL: NAUSEA ,VOMITTING AND DIZZINESS PRAMIPEXOLE DIHYDROCHLORIDE: MUSCLE JERKING, URINARY RETENTION SURGICAL HISTORY HYSTERECTOMY BLADDER SURGERY LENS IMPLANT SKIN CANCER EXCISION FRACTURE REPAIR FAMILY HISTORY FATHER: , DIAGNOSED WITH HEART DISEASE MOTHER: , CANCER 1 SISTER(S) - HEALTHY. 2 SON(S) , 1 DAUGHTER(S) - HEALTHY. 2 SISTERS FROM CANCER\N2 SON HAS HEART DIEASE. HOSPITALIZATION/MAJOR DIAGNOSTIC PROCEDURE SURGERIES AND CHILDBIRTH REVIEW OF SYSTEMS REVIEWED BY: PROVIDER: ALBERTINA AVINA . CONSTITUTIONAL: ANY CHANGE IN YOUR MEDICAL CONDITION? NO . CHILLS NO . FEVER NO . INFECTION: DO YOU HAVE NEW INFECTIONS? NO . DO YOU HAVE HISTORY OF MRSA? NO . MUSCULOSKELETAL: ANY NEW PATTERNS OF PAIN OR NUMBNESS? NO . GASTROENTEROLOGY: ANY NEW CHANGE IN BOWEL CONTROL? NO . GENITOURINARY: ANY NEW CHANGE IN BLADDER CONTROL? NO . IS THERE A CHANCE YOU COULD BE ? NO . HEMATOLOGY/LYMPH: DO YOU TAKE ANY BLOOD THINNERS? (FOR EXAMPLE- COUMADIN, PLAVIX, AGGRENOX, PLATEL, PRADAXA, OR XARELTO) YES . WHEN WAS YOUR LAST DOSE? DATE: TIME: . NEUROLOGY: HAVE YOU FALLEN IN THE PAST 12 MONTHS? NONE RECENT . ANY NEW EXTREMITY NUMBNESS OR WEAKNESS? NO . CARDIOLOGY: DO YOU HAVE A PACEMAKER OR DEFIBRILLATOR? YES . RESPIRATORY: HAVE YOU BEEN SICK IN THE PAST WEEK? NO . FEVER NO . FLU LIKE SYMPTOMS? NO . COUGH NO . INTEGUMENTARY: DO YOU HAVE ANY RASHES OR OPEN SORES? NO . ALLERGIC/IMMUNO: ARE YOU ALLERGIC TO IV DYE? NO . ANY NEW ALLERGIES? NO . PSYCHIATRIC: DO YOU HAVE THOUGHTS OF HURTING YOURSELF OR SOMEONE ELSE? NO . ARE YOU ABUSED, NEGLECTED, OR IN AN UNSAFE ENVIRONMENT? NO . ENDOCRINOLOGY: ARE YOU DIABETIC? YES . OTHER: DO YOU NEED ANY PRESCRIPTIONS? YES . IF YES, PLEASE LIST: ____HYDROCODONE . ANY NEW PROBLEMS WITH YOUR MEDICATIONS? NO . WHEN DID YOU LAST EAT? ____ . WHEN DID YOU LAST DRINK? ____ . WHAT DID YOU LAST DRINK? ____ . NAME OF PERSON DRIVING YOU HOME? ____ . DO YOU HAVE ANY OTHER QUESTIONS OR CONCERNS NO . VITAL SIGNS WT 230.8 LBS, HT 63 IN, BMI 40.88 INDEX, BP 109/53 MM HG, HR 70 /MIN, RR 18 /MIN, TEMP 97.3 F, OXYGEN SAT % 95%, SAFE IN ENV? (Y/N) YES, NA INITIALS VA 11:24, REVIEWED BY: GANGA. EXAMINATION GENERAL EXAMINATION: GENERALAWAKE,ALERT ,PLEAASANT . PSYCHAFFECT NORMAL . LUNGS:LUNG RAGLAND ARE CLEAR TO AUSCULTATION BILATERALLY. GOOD MOVEMENT OF AIR . HEART:S1, S2 IN A REGULAR RATE AND RHYTHM. NO SIGNIFICANT MURMURS, RUBS OR GALLOPS NOTED . ASSESSMENTS LUMBOSACRAL SPONDYLOSIS WITHOUT MYELOPATHY - M47.817 (PRIMARY) TREATMENT LUMBOSACRAL SPONDYLOSIS WITHOUT MYELOPATHY CONTINUE GABAPENTIN CAPSULE, 400 MG, 1 CAPSULE, ORALLY, FOUR TIMES DAILY REFILL NORCO TABLET, 7.5-325 MG, 1 TO 1 1/2 TAB, ORALLY, Q8H PRN MDD4, 30 DAY(S), 120, REFILLS 0 NOTES: ISTOP REGISTRY REVIEWED AND DEMONSTRATES COMPLLIANCE. BRINGS IN MEDICATIONS WHICH IS APPROPRIATE FOR WHAT WAS DISPENSED. URINE TOX TODAY, RISKS AND BENEFITS OF NARCOTIC/OPIOD MEDICATIONS WERE REVIEWED WITH PATIENT - THIS INCLUDES BUT IS NOT LIMITED TO RISK OF DEPENDANCE/DEVELOPMENT OF ADDICTION, MOOD DISTURBANCE AND DEPRESSION, OSTEOPOROSIS, HORMONAL AND LABIDAL CHANGES, RESPIRATORY DEPRESSION AND . PATIENT IS ADVISED NOT TO DRIVE OR DRINK ALCOHOL WHILE ON THESE MEDICATIONS, . PROCEDURE CODES FA211 ESTABILISHED PATIENT [facility] CHARGE DISPOSITION & COMMUNICATION FOLLOW UP 3 MONTHS ELECTRONICALLY SIGNED BY KAILYN PUGA ON 03/03/2019 AT 09:14 AM EDT DISCLAIMER : THIS IS A VISIT SUMMARY EXTRACTED FROM THE [employer] CHART. IT IS NOT A COPY OF THE [employer] PROGRESS NOTE. CACHORRO
== END ==
LOC: M PAIN 11:00
PROVIDERS: ATTEND Nurse Practitioner Family
DX: M47.817 Spondylosis without myelopathy or radiculopathy, lumbosacral region (principal); E78.00 Pure hypercholesterolemia, unspecified; R03.0 Elevated blood-pressure reading, without diagnosis of hypertension; M19.90 Unspecified osteoarthritis, unspecified site; E11.9 Type 2 diabetes mellitus without complications; L40.9 Psoriasis, unspecified; H04.123 Dry eye syndrome of bilateral lacrimal glands; Z85.828 Personal history of other malignant neoplasm of skin; H40.9 Unspecified glaucoma; Z79.84 Long term (current) use of oral hypoglycemic drugs; Z79.01 Long term (current) use of anticoagulants; Z79.891 Long term (current) use of opiate analgesic; Z79.899 Other long term (current) drug therapy; Z88.1 Allergy status to other antibiotic agents; Z88.8 Allergy status to other drugs, medicaments and biological substances

== ENCOUNTER 2019-02-19 01:24 | Emergency (ER) | payer MEDICARE ==
[~2019-02-19] VITALS: Ht 160 cm; Wt 104.5 kg
[~2019-02-19 01:24] MED LIST changes: -ACET-683 PO; -ACET-897 PO; -ALDA25TA2 PO; -AMIO200T PO; -AMIO200T37 PO; -ANUSHCSU PR; -ASCO50TA PO; -AVAP150T31 PO; -BIMA01SOL OU; -BYST2.5T2 PO; -BYST5TAB2 PO; -C 50TAB PO; -CALCCAP4 PO; -CARB25TA9 PO; -CEFU1TAB20 PO; -COLA100C5 PO; -CYMB1CAP5 PO; -DULO60CA35 PO; -FOLI1TAB11 PO; -FURO40TA2 PO; -GABA-843 PO; -IRBE75TA5 PO; -JANU100T PO; -LIDO4CRE4 TOP; -METH2.5T48 PO; -MIRA3350 PO; -MOM30SS2 PO; -NORC1TAB8 PO; -OMEP-218 PO; -OMEP-221 PO; -OXYCO5TA PO; -PEG1POW PO; -PRAV10TA3 PO; -SITA50TAB PO; -SPIR-10 PO; -SUCR1TA PO; -VITA30004 PO
--- NOTE | 2019-02-19 02:33 | REPVR ---
EXAM: CT Head Without Contrast EXAM DATE/TIME: 02/19/2019 1:36 AM CLINICAL HISTORY: 83 years old, female; Injury or trauma; Fall; Initial encounter; Concussion / head injury; Consciousness not specified TECHNIQUE: Imaging protocol: Axial computed tomography images of the head without contrast. Radiation optimization: All CT scans at this facility use at least one of these dose optimization techniques: automated exposure control; mA and/or kV adjustment per patient size (includes targeted exams where dose is matched to clinical indication); or iterative reconstruction. COMPARISON: CT Head without contrast 08/22/2014 1:29 PM FINDINGS: Brain: There is no acute intracranial abnormality. Mild prominence of ventricles and sulci representing volume loss. Mild small vessel ischemic changes are seen. There is no mass, midline shift, or mass effect. Ritchie-white matter differentiation is preserved. There is no evidence of hemorrhage. There is no extra-axial fluid collection. Basal cisterns are patent. 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 Ventricles: See Brain Finding. Bones/joints: The visualized osseous structures are unremarkable. Sinuses: Visualized sinuses are clear. Mastoid air cells: Mastoid air cells are clear. Soft tissues: Mild left inferior frontal soft tissue swelling. IMPRESSION: 1. Mild volume loss and small vessel ischemic changes. . 2. No acute intracranial abnormality. 3. Mild left inferior frontal soft tissue swelling. Electronically signed by: Gely Atkins On 02/19/2019 02:33:09 AM
--- NOTE | 2019-02-19 02:41 | REPVR ---
EXAM: CT Cervical Spine Without Contrast EXAM DATE/TIME: 02/19/2019 1:36 AM CLINICAL HISTORY: 83 years old, female; Injury or trauma; Fall; Initial encounter; Concussion /head injury TECHNIQUE: Imaging protocol: Axial computed tomography images of the cervical spine without contrast. Coronal and sagittal reformatted images were created and reviewed. Radiation optimization: All CT scans at this facility use at least one of these dose optimization techniques: automated exposure control; mA and/or kV adjustment per patient size (includes targeted exams where dose is matched to clinical indication); or iterative reconstruction. COMPARISON: No relevant prior studies available. FINDINGS: Vertebrae: No acute fracture. Reversal of normal cervical lordosis likely secondary to muscular spasm or positioning. Multilevel degenerative changes with anterior osteophyte formation, loss of disc spaces, and facet joint arthropathy. Minimal anterolisthesis of L3 on L4. Minimal loss of height of superior endplate of T1 secondary to Schmorl node formation. Discs/Spinal canal/Neural foramina: No spinal stenosis. No neural foraminal narrowing. Soft tissues: Unremarkable. Lungs: Lung apices are normal. IMPRESSION: No acute findings. Electronically signed by: Gely Atkins On 02/19/2019 02:41:48 AM
--- NOTE | 2019-02-19 02:48 | REPVR ---
EXAM: CT Chest Without Contrast EXAM DATE/TIME: 02/19/2019 1:36 AM CLINICAL HISTORY: 83 years old, female; Chest pain; Type not specified; Patient HX: PT fell; Additional info: Fall TECHNIQUE: Imaging protocol: Axial computed tomography images of the chest without intravenous contrast. Coronal and sagittal reformatted images were created and reviewed. 3D rendering: MIP reconstructed images were created and reviewed. Radiation optimization: All CT scans at this facility use at least one of these dose optimization techniques: automated exposure control; mA and/or kV adjustment per patient size (includes targeted exams where dose is matched to clinical indication); or iterative reconstruction. COMPARISON: CR Chest, 2 view PA, Lat 02/06/2013 8:52 AM FINDINGS: Tubes, catheters and devices: Moderate fecal loading in the right and transverse colon. No bowel dilatation or obstruction. projected over the left chest with one lead terminating in the right atrium and one in the right ventricle. Lungs: Bibasilar atelectasis. Mild increased bilateral pedicle interstitial markings likely chronic. Pleural space: Unremarkable. No pneumothorax. No pleural effusion. Heart: Cardiomegaly. Coronary calcifications. Aorta: Unremarkable. No aortic aneurysm. Lymph nodes: Unremarkable. No enlarged lymph nodes. Bones/joints: Diffuse demineralization of the bones. Degenerative changes. Nondisplaced deformity of the right lateral second rib, age indeterminate, clinical correlation with point of tenderness is recommended. Mild loss of height of superior endplate of T1 likely secondary to Schmorl node formation. No prevertebral soft tissue swelling retropulsion. Soft tissues: See Lungs Finding. Gallbladder and bile ducts: Gallbladder sludge versus tiny stones. Pancreas: Atrophy of the pancreas. Other findings: Atherosclerosis. IMPRESSION: Nondisplaced deformity of the right lateral second rib, age indeterminate, clinical correlation with point of tenderness is recommended. Mild loss of height of superior endplate of T1 likely secondary to Schmorl node formation. No prevertebral soft tissue swelling retropulsion. If clinically concerned about acute fracture further evaluation with MR is recommended. Electronically signed by: Gely Atkins On 02/19/2019 02:47:30 AM
[2019-02-19 04:29] VITALS: BP 104/50
--- NOTE | 2019-02-23 11:35 | ED PDOC ---
Post-Departure Follow-Up jerry martin faxed formal report of ct chest for fu Kat Feng MD Feb 23, 2019 11:35
== END 2019-02-19 04:31 | disposition home or self-care (01) ==
LOC: M ED 01:24
DX: S00.93XA Contusion of unspecified part of head, initial encounter (principal); W19.XXXA Unspecified fall, initial encounter; Y92.099 Unspecified place in other non-institutional residence as the place of occurrence of the external cause; Y93.9 Activity, unspecified; Y99.9 Unspecified external cause status; I48.91 Unspecified atrial fibrillation; Z72.0 Tobacco use; Z79.899 Other long term (current) drug therapy; Z88.2 Allergy status to sulfonamides; Z88.1 Allergy status to other antibiotic agents; Z88.8 Allergy status to other drugs, medicaments and biological substances; Z88.5 Allergy status to narcotic agent

== ENCOUNTER 2019-02-22 21:24 | Inpatient (IN) | payer MEDICARE ==
[~2019-02-22] VITALS: Ht 160 cm; Wt 104.5 kg
[2019-02-22] MEDS: DOCUSATE SODIUM 100 MG CAP PO SCH (21:00)
[2019-02-22] MEDS: DULoxetine 30 MG CAP (CYMBALTA) PO SCH (21:00)
[2019-02-22] MEDS: IRBESARTAN 150 MG TAB PO SCH (21:00)
[2019-02-22] MEDS: PRAVASTATIN 10 MG TAB PO SCH (21:00)
[2019-02-22 22:06] LABS: BASO % 0.5 % (0.0-1.0); EOS # 0.1 10^3/uL (0.0-0.50); EOS % 1.5 % (0.0-3.0); HEMATOCRIT 29.6 % (36.0-47.0); HEMOGLOBIN 9.4 g/dl (12.0-15.5); LYMPH % 13.8 % (24.0-44.0); MEAN CORPUSCULAR HEMOGLOBIN 31.4 pg (27.0-33.0); MEAN CORPUSCULAR HGB CONC 31.8 g/dl (32.0-36.5); MONO # 1.2 10^3/uL (0.0-0.8); MONO % 16.2 % (0.0-5.0); NEUTROPHILS # 4.9 10^3/uL (1.8-7.7); NEUTROPHILS % 67.7 % (36.0-66.0); PLATELET COUNT, AUTOMATED 316 10^3/uL (150-450); RED BLOOD COUNT 2.99 10^6/uL (4.00-5.40); WHITE BLOOD COUNT 7.3 10^3/uL (4.0-10.0)
--- NOTE | 2019-02-22 22:26 | REPVR ---
EXAM: CT Head Without Contrast EXAM DATE/TIME: 02/22/2019 10:00 PM CLINICAL HISTORY: 83 years old, female; Injury or trauma; Fall; Initial encounter; Concussion / head injury; Consciousness not specified TECHNIQUE: Imaging protocol: Axial computed tomography images of the head without contrast. Radiation optimization: All CT scans at this facility use at least one of these dose optimization techniques: automated exposure control; mA and/or kV adjustment per patient size (includes targeted exams where dose is matched to clinical indication); or iterative reconstruction. COMPARISON: CT Head without contrast 02/19/2019 1:49 AM FINDINGS: Brain: Mild to moderate frontal atrophy consistent with patient age. No significant white matter disease. Ventricles: The degree of ventricular dilatation is normal for age. No pathologic enlargement demonstrated. Bones/joints: Unremarkable. No acute fracture. Sinuses: Visualized sinuses are unremarkable. No fluid levels. Mastoid air cells: Visualized mastoid air cells are well aerated. No mastoid effusion. Soft tissues: Left frontal soft tissue contusion. IMPRESSION: 1. Left frontal soft tissue contusion. No fracture. 2. No acute intracranial findings. Electronically signed by: Koby Farley On 02/22/2019 22:26:18 PM
[2019-02-22 22:35] LABS: ALBUMIN 3.5 GM/DL (3.2-5.2); BILIRUBIN,DIRECT 0.1 MG/DL (0.0-0.2); BILIRUBIN,TOTAL 0.3 MG/DL (0.2-1.0); CALCIUM LEVEL 9.4 MG/DL (8.8-10.2); CREATININE FOR GFR 1.92 MG/DL (0.55-1.30); GLOMERULAR FILTRATION RATE 26.7 (>32); TOTAL PROTEIN 7.8 GM/DL (6.4-8.2)
[2019-02-22] MEDS ORDERED: ACETAMINOPHEN TAB 650MG DOSE (2X325MG) PO PRN (23:30)
[2019-02-22] MEDS ORDERED: MOM 30ML SUSPENSION UDC PO PRN (23:30)
[2019-02-22] MEDS ORDERED: MAALOX 30 ML SUSP *UDC PO PRN (23:30)
[2019-02-22] MEDS ORDERED: OMEPRAZOLE 20 MG CAP PO ONE (23:30)
[2019-02-22] MEDS ORDERED: ACET-897 PO ×2 (23:52)
[2019-02-22] MEDS ORDERED: VITMTA PO (23:52)
[2019-02-22] MEDS ORDERED: GABA-845 PO (23:52)
[2019-02-22] MEDS ORDERED: JANU100T PO (23:52)
[2019-02-22] MEDS ORDERED: METH2.5T48 PO (23:52)
[2019-02-22] MEDS ORDERED: BYST2.5T2 PO (23:52)
[2019-02-22] MEDS ORDERED: FOLI1TAB11 PO (23:52)
[2019-02-22] MEDS ORDERED: FURO40TA2 PO (23:52)
[2019-02-22] MEDS ORDERED: C 50TAB PO (23:52)
[2019-02-22] MEDS ORDERED: CALCCAP4 PO (23:52)
[2019-02-22] MEDS ORDERED: VITA30004 PO (23:52)
[2019-02-22] MEDS ORDERED: AMIO200T37 PO (23:52)
[2019-02-22] MEDS ORDERED: SPIR-10 PO (23:52)
[2019-02-22] MEDS ORDERED: XARE20TA PO (23:53)
[2019-02-22] MEDS ORDERED: LIDO4CRE4 TOP (23:53)
[2019-02-22] MEDS ORDERED: NORC1TAB8 PO ×2 (23:53)
[2019-02-22] MEDS ORDERED: PRAV10TA3 PO (23:53)
[2019-02-22] MEDS ORDERED: OMEP-221 PO (23:53)
[2019-02-22] MEDS ORDERED: BIMA01SOL OU (23:53)
[2019-02-22] MEDS ORDERED: IRBE75TA5 PO (23:53)
[2019-02-22] MEDS ORDERED: DULO60CA35 PO (23:53)
[2019-02-22] MEDS ORDERED: MIRA3350 PO (23:53)
[2019-02-23] MEDS ORDERED: GLUCOSE 4 GM CHEW TABLET PO PRN (00:15)
[2019-02-23] MEDS ORDERED: DEXTROSE 50% 50 ML SYRINGE IV PRN (00:15)
[2019-02-23] MEDS ORDERED: GLUCAGON FOR INJ 1 MG VIAL (J1610) SC PRN (00:15)
[2019-02-23] MEDS ORDERED: ACETAMINOPHEN TAB 650MG DOSE (2X325MG) PO ONE (00:30)
[2019-02-23] MEDS ORDERED: ANEXSIA, NORCO 7.5MG/325MG TABLET(HYDROCODONE/APAP) PO ONE (00:30)
[2019-02-23 01:45] VITALS: BP 122/66
[2019-02-23] MEDS ORDERED: BISACODYL 5 MG TAB PO PRN (04:00)
[2019-02-23] MEDS ORDERED: BISACODYL 10 MG SUPP PR PRN (04:00)
--- NOTE | 2019-02-23 04:32 | HPEPDOC ---
General Date of Admission 02/22/19 Date of Service: Feb 22, 2019 Primary Care Physician: Lashay Lorenzo Attending Physician: JEYSON RAMON DO Chief Complaint The patient is a 83-year-old female admitted with a reason for visit of Weakness. Source: Patient, Family, Old records Exam Limitations: No limitations Timing/Duration: Week(s) (1), Getting worse, This evening (fell; similar to 3 days ago) Severity: Severe Associated Symptoms: Mechanical fall History of Present Illness 83 yo diabetic female with history of lumbar stenosis and peripheral neuropathy brought to ED because of urinary frequency and recurrent falls. Son (Fawn) and patient provide history. Patient has had urine frequency over past 2-3 days and going every 30 minutes - no fever, no dysuria, has saddle parathesia (chronic) due to lumbar stenosis; She denies urine retention. She states she has not seen urology or neurology for her lumbar stenosis with saddle parathesia, peripheral neuropathy but is follow by pain clinic (dr De Leon) and had recent lumbar imaging done (states CT scan). States recent pain medications increased (Vicodin from 5mg TID to 7.5 mg TID - with no lethargy or drowsiness). States [facility] Elam but doesn't know results. Son (Fawn) states that patient has increased falls and uses walker. States mo st recent fall on 02/18/19 - fell in bathroom and landed on buttock. no head injury or LOC. Patient and son states legs jerked out from under her. patient and son states today02/22/19 patient fell twice - backwards because "increased weakness to legas,arms" , "arm jumping while using walker and lost balance" "arms jumping that she couldn't even hold coffee cup". no Dizziness; she hit her head but no LOC. states no N, no V, no loss of bowel or bladder function but has had 4 days of constipation with worsening hemorrhoids (denies melena or hematochezia). Patient currently has Left leg pain and back pain and states usually takes vicodin 7.5mg at 0700, 1500 and 2200 but missed evening dose rashmi use of ED visit. Home Medications Scheduled Acetaminophen (Tylenol Extra Strength) 500 Mg Tablet, 500 MG PO TID, (Reported) MORNING, AFTERNOON, AND BEDTIME - ONE TABLET Acetaminophen (Tylenol Extra Strength) 500 Mg Tablet, 1,000 MG PO QPM, (Reported) DINNER - TWO TABS Amiodarone HCl (Amiodarone Hydrochloride) 200 Mg Tablet, 200 MG PO DAILY, (Reported) Ascorbic Acid (Vitamin C) 500 Mg Tablet, 500 MG PO DAILY, (Reported) Bimatoprost (Lumigan) 0.01% 2.5ML Drops, 1 DROP OU QHS, (Reported) Calcium Carbonate/Vitamin D3 (Calcium 600 + Vit D 400 Softgl) 1 Each Capsule, 2 CAP PO QPM, (Reported) AT DINNER Cholecalciferol (Vitamin D3) (Vitamin D3) 3,000 Unit Tablet, 3,000 UNIT PO DAILY, (Reported) Duloxetine HCl (Duloxetine HCl) 60 Mg Capsule.dr, 60 MG PO QHS, (Reported) Folic Acid (Folic Acid) 1 Mg Tablet, 2 MG PO 6XWK, (Reported) SATURDAY THROUGH SATURDAY (NOT SATURDAY) Furosemide (Furosemide) 40 Mg Tablet, 40 MG PO DAILY, (Reported) Gabapentin (Gabapentin) 400 Mg Capsule, 400 MG PO QID, (Reported) Hydrocodone/Acetaminophen (Hawthorne 7.5-325 Tablet) 1 Each Tablet, 1.5 TAB PO BID, (Reported) MORNING AND BEDTIME Hydrocodone/Acetaminophen ([place]thorne 7.5-325 Tablet) 1 Each Tablet, 1 TAB PO DAILY, (Reported) AT LUNCH Irbesartan (Irbesartan) 75 Mg Tablet, 75 MG PO QHS, (Reported) Methotrexate Sodium (Methotrexate) 2.5 Mg Tablet, 7.5 MG PO QWEEK, (Reported) ON MONDAYS Multivitamins (Thera M Plus Tablet) 1 Each Tablet, 1 TAB PO DAILY, (Reported) Nebivolol HCl (Bystolic) 2.5 Mg Tablet, 2.5 MG PO DAILY, (Reported) Omeprazole (Omeprazole) 40 Mg Capsule.dr, 40 MG PO DAILY, (Reported) Polyethylene Glycol 3350 (Miralax) 119 Gm Powder, 12.75 GM PO DAILY, (Reported) USES TYPICALLY 1/2-3/4 OF A CAP QAM Pravastatin Sodium (Pravastatin Sodium) 10 Mg Tablet, 10 MG PO QHS, (Reported) Rivaroxaban (Xarelto) 20 Mg Tablet, 20 MG PO QPM, (Reported) AT DINNER Sitagliptin Phosphate (Januvia) 100 Mg Tablet, 100 MG PO DAILY, (Reported) Spironolactone (Spironolactone) 25 Mg Tablet, 25 MG PO DAILY, (Reported) Scheduled PRN Lidocaine (Lidocaine) 15 Gm Cream..g., 1 APLCT TOP QID PRN for PAIN, (Reported) APPLIES TO LOWER LEGS, LOWER BACK, RIBS, PRN Allergies Coded Allergies: pramipexole (Verified Allergy, Intermediate, EXTREME DROWSINESS, INVOLUNTARY MUSC. MOVEMENT, WEAKNESS, 02/22/19) AND CONFUSION Estrogens (Verified Allergy, Unknown, RASH, 02/22/19) Sulfa (Sulfonamide Antibiotics) (Verified Allergy, Unknown, TOLD TO AVOID INTERACTIONS WHILE TAKING METHOTREXATE, 02/22/19) clindamycin (Verified Allergy, Unknown, RASH, 02/22/19) clobetasol (Verified Allergy, Unknown, RASH, 02/22/19) imiquimod (Verified Allergy, Unknown, RASH, 02/22/19) tramadol (Verified Allergy, Unknown, NAUSEA, VOMITING, DIZZINESS, 02/22/19) Past Medical History Medical History Severe spinal stenosis with saddle parathesia,urine incontinence and constipation peripheral neuropathy NIDDM AFIB paroxysmal Pacemaker Glaucoma squamous cell skin cancer (treated with methotrexate) hemorrhoids Social history: no tobacco, no etOH use ; lives with son (Fawn) who is her p rimary caregiver Surgical history: Hysterectomy cataract removed bilaterally Bladder suspension surgery Family history: Mother old age, father from "blood clot" A-FIB/CHADSVASC A-FIB History Current/History of A-Fib/PAF?: Yes Current PO Anticoag Therapy: Yes Age/Risk Factor Scoring CHADSVASC: CHADSVASC Response (Comments) Value Age Risk Factor Age >/= 75 years old 2 Gender Risk Factor Female 1 Hx of CHF No 0 Hx of HTN Yes 1 Hx of Stroke/TIA/or VTE Yes 2 Hx of Diabetes Yes 1 Hx of Vascular Disease Yes 1 Total 8 Treatment Other anticoagulant ordered: xarelto Review of Systems Constitutional: Reports: Malaise, Weakness, Fatigue Eyes: Reports: Conjunctivae inflammation ENT: Reports: Head Aches Skin: Reports: Bruising Cardiovascular: Reports: Other Symptoms (left chest wall/rib pain) Genitourinary: Reports: Frequency, Incontinence Hematologic: Reports: Bruising Endocrine: Reports: Polyuria Musculoskeletal: Reports: Arm Pain, Leg Pain, Joint Pain, Muscle Pain, Spasms Neurological: Reports: Weakness, Numbness, Other Symptoms (tremor) Psych: Reports: Mood Normal; Denies: Memory Issues Other systems 10 systems reviewed and negative except as per HPI or above Physical Examination General Exam: Positive: Alert, Cooperative, Moderate Distress Eye Exam: Positive: PERRLA, EOMI, Other Eye Symptoms (right subconjuctival hemorrage; gross visual acuity appears intact) ENT Exam: Positive: Mucous membr. moist/pink, Pharynx Normal, Other ENT (hematoma left eyebrow and orbit area; ) Neck Exam: Positive: Supple, +2 carotid pulse wo bruit Chest Exam: Positive: Clear to auscultation, Normal air movement, Other (left anterolateral bruising below breast/mid axillary approx rib 6-8); Negative: Rales, Rhonchi, Wheezing Heart Exam: Positive: Rate Normal, Regular Rhythm, Normal S1, Normal S2, Other (pace maker to left upper chest wall) Telemetry: Positive: Sinus, Other Telemetry: (paced) Abdomen Exam: Positive: Normal bowel sounds, Soft (NT ND, obese) Extremity Exam: Positive: Normal pulses; Negative: Clubbing, Cyanosis, Edema Skin Exam: Positive: Other skin issue (eccymosis as described elsewhere; maculopapular lesions non confluent, dry flaky to arms/legs (chronic per patie nt)) Neuro Exam: Positive: Normal Speech, Other (poor proximal muscle tone with wasting; neuropathy to lower extremities; jumping/choreoform like tremors intermittently to upper and lower extremities) Psych Exam: Positive: Mental status NL, Mood NL, Memory Intact, Oriented x 3 Other physical findings EKG #1 with afib rate controlled Tele with atrial paced NSR 70 EKG #2 with ventricular and atrial paced /NSR Vital Signs Vital Signs Date Time Temp Pulse Resp B/P (MAP) Pulse Ox O2 Delivery O2 Flow Rate FiO2 02/22/19 21:32 94 16 125/62 97 Room Air 02/22/19 21:31 97.8 Laboratory Data Labs 24H Laboratory Tests 2 02/22/19 21:43: Immature Granulocyte % (Auto) 0.3, White Blood Count 7.3, Red Blood Count 2.99L, Hemoglobin 9.4L, Hematocrit 29.6L, Mean Corpuscular Volume 99.0H, Mean Corpuscular Hemoglobin 31.4, Mean Corpuscular Hemoglobin Concent 31.8L, Red Cell Distribution Width 15.2H, Platelet Count 316, Neutrophils (%) (Auto) 67.7H, Lymphocytes (%) (Auto) 13.8L, Monocytes (%) (Auto) 16.2H, Eosinophils (%) (Auto) 1.5, Basophils (%) (Auto) 0.5, Neutrophils # (Auto) 4.9, Lymphocytes # (Auto) 1.0L, Monocytes # (Auto) 1.2H, Eosinophils # (Auto) 0.1, Basophils # (Auto) 0.0, Nucleated Red Blood Cells % (auto) 0.0, Anion Gap 7L, Glomerular Filtration Rate 26.7L, Calcium Level 9.4, Aspartate Amino Transf (AST/SGOT) 21, Alanine Aminotransferase (ALT/SGPT) 24, Alkaline Phosphatase 66, Total Bilirubin 0.3, Direct Bilirubin 0.1, Total Protein 7.8, Albumin 3.5, Albumin/Globulin Ratio 0.81L CBC/BMP Laboratory Tests 02/22/19 21:43 Red Blood Count 2.99 L, Mean Corpuscular Volume 99.0 H, Mean Corpuscular Hemoglobin 31.4, Mean Corpuscular Hemoglobin Concent 31.8 L, Red Cell Distribution Width 15.2 H, Neutrophils (%) (Auto) 67.7 H, Lymphocytes (%) (Auto) 13.8 L, Monocytes (%) (Auto) 16.2 H, Eosinophils (%) (Auto) 1.5, Basophils (%) (Auto) 0.5, Neutrophils # (Auto) 4.9, Lymphocytes # (Auto) 1.0 L, Monocytes # (Auto) 1.2 H, Eosinophils # (Auto) 0.1, Basophils # (Auto) 0.0 Assessment/Plan 1) anemia - suspected chronic GI blood loss; serial H/H, hemocult stool, consider transfusion. Unknown baseline. Patient states had labs done last week at [facility]. attempt to get results. 2) afib on xarelto - continue med unless GI bleed is determined 3) recurrent falls with weakness/debility - made worse with underlying anemia, tremor, neuropathy and lumbar stenosis PT/OT consulted. may need rehab 4) Diabetes - not on superintendent terminal insulin, without hypoglycemia, without hyperglycemia SSI, monitor blood sugar ac/hs, hold oral agents 5) Constipation - start miralax and colace with prn biscodyl 6) tremor - unknown etiology - may need to consider OUTPATIENT neurology consult 7) Lumbar stenosis with neuropathy and saddle block parathesia (chronic per patient) - managed by pain management but may benefit from outpatient neurology consult. Patient states she had recent imaging studies done (possible CT Scan) thru pain management office - record requested. Review of her current hospital imaging shows last MRI done in 2009 8) UTI - with frequency, incontinence and saddle paraesthesia from lumbar stenosis (all present on admission) - alcazar cath, rocephin; unclear if she has neurogenic bladder with overflow incontinence or if all from UTI. If large amount of residual urine when alcazar placed, then may need to consider urology consult for neurogenic bladder. UC ordered. CODE STATUS: FULL DVT PROPHYLAXIS: none - continue with xarelto for AFIB Plan / VTE VTE Prophylaxis Ordered?: No (on xarelto) JEYSON RAMON DO Feb 22, 2019 23:21
[2019-02-23 06:00] VITALS: BP 117/56
[2019-02-23 06:11] LABS: HEMATOCRIT 26.5 % (36.0-47.0); HEMOGLOBIN 8.3 g/dl (12.0-15.5); MEAN CORPUSCULAR HEMOGLOBIN 30.9 pg (27.0-33.0); MEAN CORPUSCULAR HGB CONC 31.3 g/dl (32.0-36.5); MEAN CORPUSCULAR VOLUME 98.5 fl (80.0-96.0); PLATELET COUNT, AUTOMATED 288 10^3/uL (150-450); RED BLOOD COUNT 2.69 10^6/uL (4.00-5.40); WHITE BLOOD COUNT 7.8 10^3/uL (4.0-10.0)
[2019-02-23] MEDS: cefTRIAXone SOD 2 GM in D5W MINI-BAG PLUS 50 ML IV SCH (06:24)
[2019-02-23 06:46] LABS: BLOOD UREA NITROGEN 41 MG/DL (7-18); CALCIUM LEVEL 8.8 MG/DL (8.8-10.2); CARBON DIOXIDE LEVEL 30 MEQ/L (21-32); CHLORIDE LEVEL 99 MEQ/L (98-107); CREATININE FOR GFR 1.75 MG/DL (0.55-1.30); GLOMERULAR FILTRATION RATE 29.7 (>32); GLUCOSE, FASTING 106 MG/DL (70-100); POTASSIUM SERUM 4.8 MEQ/L (3.5-5.1); SODIUM LEVEL 134 MEQ/L (136-145); THYROID STIMULATING HORMONE 0.219 uIU/ML (0.358-3.740); TROPONIN I < 0.02 NG/ML (< 0.10)
[2019-02-23] MEDS ORDERED: ACETAMINOPHEN 500 MG TAB PO SCH (09:00)
[2019-02-23] MEDS ORDERED: ANEXSIA, NORCO 7.5MG/325MG TABLET(HYDROCODONE/APAP) PO SCH (09:00)
[2019-02-23] MEDS ORDERED: GABAPENTIN 400 MG CAP PO SCH ×2 (09:00)
[2019-02-23] MEDS: DOCUSATE SODIUM 100 MG CAP PO SCH ×2 (09:11→21:54)
[2019-02-23] MEDS: AMIODARONE 200 MG TAB (PACERONE) PO SCH (09:11)
[2019-02-23] MEDS: oxyCODONE 5MG TAB PO SCH ×3 (09:12→21:57)
[2019-02-23] MEDS: FUROSEMIDE 40 MG TAB PO SCH (09:12)
[2019-02-23] MEDS: ACETAMINOPHEN 500 MG TAB PO SCH ×3 (09:13→21:55)
[2019-02-23] MEDS: MULTIVITAMINS/MINERALS THERAP 1 TAB PO SCH (09:13)
[2019-02-23] MEDS: NEBIVOLOL 5 MG TAB (BYSTOLIC) PO SCH (09:13)
[2019-02-23] MEDS: MIRALAX *UNIT DOSE* 17GM PACKET PO SCH (09:14)
[2019-02-23] MEDS: SPIRONOLACTONE 25 MG TAB PO SCH (09:29)
[2019-02-23] MEDS: VITAMIN D 1,000 INTERNATIONAL UNITS TABLET PO SCH (09:29)
--- NOTE | 2019-02-23 09:36 | ECGEPIP ---
[facility] Test Date: 2019-02-23 Pat Name: SOCO FRANKLIN Department: Room: [place] [address] Gender: Female Copy Preparer: : 1935 Requested By: JEYSON Pires Order Number: [id number] Reading MD: Radha Alonzo Measurements Intervals [place] Rate: 69 P: 180 GA: 307 QRS: 61 QRSD: 138 T: QT: 427 QTc: 460 Interpretive Statements ELECTRONIC ATRIAL PACEMAKER ELECTRONIC VENTRICULAR PACEMAKER -- PACEMAKER NEW C/W 02/22/19 Electronically Signed on 02-23-2019 9:35:55 EDT by Radha Alonzo
[2019-02-23] MEDS: GABAPENTIN 300 MG CAP PO SCH ×4 (09:44→21:56)
[2019-02-23] MEDS: SUCRALFATE 1 GM TAB PO SCH ×3 (11:11→17:54)
[2019-02-23 14:00] VITALS: BP 112/56
--- NOTE | 2019-02-23 16:44 | ECGEPIP ---
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
--- NOTE | 2019-02-23 16:45 | ECHO ---
DATE OF PROCEDURE: 02/23/2019 REFERRING PHYSICIAN: Dr. Isabella Wood INDICATION: Abnormal ECG. HEIGHT: 160 cm WEIGHT: 104 kg 2D MEASUREMENTS: Aortic root: 3.2 cm Left atrium: 3.7 cm Ventricular septum: 1.06 cm Posterior wall: 1.06 cm Left ventricle diastole: 4.9 cm Inferior vena cava: 1.6 cm with more than 50% respiratory variation DOPPLER MEASUREMENTS: Aortic valve velocity: 136 cm/s LVOT velocity: 91.7 cm/s LVOT VTI: 20.9 cm Very mild mitral regurgitation. Mitral E velocity: 68.6 cm/s Mitral A velocity: 53.8 cm/s Mitral deceleration time: 310 ms Mild tricuspid regurgitation. Estimated right ventricle systolic pressure: 38-43 mmHg. Pulmonary artery systolic pressure: 33 mmHg MITRAL ANNULAR TISSUE DOPPLER: E prime septal: 5.9 cm/s DESCRIPTION: Rhythm was probably AV sequential paced rhythm. This was a moderately technically difficult echocardiogram. This was a 2D, M-mode, color flow Doppler and pulse wave Doppler examination and included mitral annular tissue Doppler. CONCLUSIONS: 1. Preserved overall left ventricular (LV) systolic function. Left ventricular ejection fraction (LVEF) 60% by visual estimate. Paradoxical septal motion. Grade 2 LV diastolic dysfunction. Normal LV wall thickness. 2. Suggestive of mild-moderate elevation of estimated right ventricle systolic pressure. Mild tricuspid regurgitation. Normal right ventricle size and systolic function. 3. Mild aortic valve sclerosis of a 3-cusp aortic valve. No aortic regurgitation. 4. No pericardial effusion. 5. Mild mitral annular calcification. Very mild mitral regurgitation. 6. Presence of endocardial, right atrial and right ventricle pacemaker leads.
[2019-02-23] MEDS: RIVAROXABAN 20 MG TAB (XARELTO) PO SCH (17:05)
[2019-02-23] MEDS: CALCIUM/VITAMIN D 500 MG TAB PO SCH (17:05)
[2019-02-23] MEDS: DULoxetine 30 MG CAP (CYMBALTA) PO SCH (21:56)
[2019-02-23] MEDS: IRBESARTAN 150 MG TAB PO SCH (21:56)
[2019-02-23 22:00] VITALS: BP 115/58
[2019-02-23] MEDS: PRAVASTATIN 10 MG TAB PO SCH (22:03)
[2019-02-24] MEDS: cefTRIAXone SOD 2 GM in D5W MINI-BAG PLUS 50 ML IV SCH (05:04)
[2019-02-24 06:00] VITALS: BP 102/56
[2019-02-24] MEDS: oxyCODONE 5MG TAB PO SCH ×3 (06:55→21:53)
[2019-02-24] MEDS: ACETAMINOPHEN 500 MG TAB PO SCH ×3 (06:55→21:51)
[2019-02-24] MEDS: MULTIVITAMINS/MINERALS THERAP 1 TAB PO SCH (07:54)
[2019-02-24] MEDS: VITAMIN D 1,000 INTERNATIONAL UNITS TABLET PO SCH (07:56)
[2019-02-24] MEDS: FOLIC ACID 1 MG TAB PO SCH (07:56)
[2019-02-24] MEDS: DOCUSATE SODIUM 100 MG CAP PO SCH ×2 (07:56→21:00)
[2019-02-24] MEDS: MIRALAX *UNIT DOSE* 17GM PACKET PO SCH (07:56)
[2019-02-24] MEDS: AMIODARONE 200 MG TAB (PACERONE) PO SCH (07:57)
[2019-02-24] MEDS: FUROSEMIDE 40 MG TAB PO SCH (07:57)
[2019-02-24] MEDS: GABAPENTIN 300 MG CAP PO SCH ×4 (07:57→21:46)
[2019-02-24] MEDS: SPIRONOLACTONE 25 MG TAB PO SCH (07:57)
[2019-02-24] MEDS: NEBIVOLOL 5 MG TAB (BYSTOLIC) PO SCH (07:57)
[2019-02-24] MEDS: SUCRALFATE 1 GM TAB PO SCH ×3 (07:57→17:09)
[2019-02-24 14:00] VITALS: BP 104/51
[2019-02-24] MEDS: RIVAROXABAN 20 MG TAB (XARELTO) PO SCH (17:09)
[2019-02-24] MEDS: CALCIUM/VITAMIN D 500 MG TAB PO SCH (17:09)
--- NOTE | 2019-02-24 17:43 | IPNPDOC ---
Date Seen The patient was seen on 02/24/19. Progress Note SUBJECTIVE: The patient's son at bedside is able to give more history. He relates that she has had multiple falls over the past week or so. These have be en due to jerking motions to her arms and legs while she is attempting to use her walker. These have increased substantially and there are concerns for Parkinson's disease. The patient is more preoccupied with her hemorrhoids. OBJECTIVE PHYSICAL EXAMINATION: VITAL SIGNS: Please see below. GENERAL: Patient is awake, alert and conversant HEENT: Neck is supple, there is no adenopathy or thyromegaly, oral mucosa is moist, patient has large left periorbital ecchymoses from her fall CARDIOVASCULAR: Regular rate and rhythm with a normal S1 and S2. I do not appreciate a murmur. RESPIRATORY: She is generally clear to auscultation with no rhonchi, rales, wheezes or cough. ABDOMINAL: Abdomen soft. She does have notable central obesity. Her exam is otherwise benign RECTAL: The patient has a moderately large external hemorrhoid with significant internal hemorrhoid. There is a small area of erosion at the 12 o'clock position that may represent a prior bleeding site. There is no current bleeding. EXTREMITIES: No peripheral edema, pedal pulses are generally palpable NEUROLOGICAL: I do not currently note any sort of tremor or jerking, but patient has been reclining in bed PSYCHOLOGICAL: Patient displays normal and pleasant mood, she does appear to have age-related cognition deficit LABORATORY DATA, IMAGING STUDIES, MICROBIOLOGY: Please see below. Echocardiogram: Shows ejection fraction of 60% with grade 2 diastolic dysfunction. DVT prophylaxis ordered?: Patient remains on her Xarelto ASSESSMENT AND PLAN: 1. Gait instabilityconcern is raised for possible Parkinson's given her increasing frequency of falls with ambulation and jerking episodes. We will start her on low-dose carbidopa levodopa and she will need outpatient neurology eval.. We will also need evaluation from physical and occupational therapy services as she may also benefit from gait training. 2. Paroxysmal atrial fibrillationpatient remains on her rate control medication in the form of amiodarone. She remains on anticoagulation with Xarelto. Fortunately with her fall she did not sustain any head bleed. 3. Hemorrhoids.Patient does have substantial hemorrhoid. Most concerning are her internal hemorrhoids which appear to be a potential source of bleeding associated with constipation. We continue with bowel care and recommend the use of suppositories. DISPOSITION: . VS, I&O, 24H, Fishbone Vital Signs/I&O Vital Signs Date Time Temp Pulse Resp B/P (MAP) Pulse Ox O2 Delivery O2 Flow Rate FiO2 02/24/19 15:53 16 02/24/19 14:00 97.9 70 104/51 (68) 98 02/23/19 00:08 Room Air I&O- Last 24 Hours up to 6 AM 02/24/19 06:00 Intake Total 1170 ml Output Total 2000 ml Balance -830 ml Laboratory Data Microbiology Microbiology 02/22/19 Urine Culture - Preliminary, Resulted Strep Agalactiae Group B KARMA MALDONADO MD Feb 24, 2019 17:43
[2019-02-24] MEDS: PRAVASTATIN 10 MG TAB PO SCH (21:46)
[2019-02-24] MEDS: IRBESARTAN 150 MG TAB PO SCH (21:49)
[2019-02-24] MEDS: SINEMET 25-100 MG TAB PO SCH (21:50)
[2019-02-24] MEDS: ANUSOL HC 25MG SUPP PR SCH (21:51)
[2019-02-24] MEDS: DULoxetine 30 MG CAP (CYMBALTA) PO SCH (21:52)
[2019-02-24 22:00] VITALS: BP 150/66
[2019-02-25 06:00] VITALS: BP 119/56
[2019-02-25] MEDS: cefTRIAXone SOD 2 GM in D5W MINI-BAG PLUS 50 ML IV SCH (06:13)
[2019-02-25 06:19] LABS: HEMATOCRIT 27.8 % (36.0-47.0); HEMOGLOBIN 8.8 g/dl (12.0-15.5); MEAN CORPUSCULAR HEMOGLOBIN 31.2 pg (27.0-33.0); MEAN CORPUSCULAR HGB CONC 31.7 g/dl (32.0-36.5); MEAN CORPUSCULAR VOLUME 98.6 fl (80.0-96.0); PLATELET COUNT, AUTOMATED 324 10^3/uL (150-450); RED BLOOD COUNT 2.82 10^6/uL (4.00-5.40); WHITE BLOOD COUNT 7.2 10^3/uL (4.0-10.0)
[2019-02-25 06:51] LABS: FREE THYROXINE INDEX 5.1 % (1.3-4.8); THYROID STIMULATING HORMONE 0.21 uIU/ML (0.358-3.740); THYROXINE (T4) 13.8 UG/DL (4.5-12.0)
[2019-02-25] MEDS: ACETAMINOPHEN 500 MG TAB PO SCH ×2 (07:07→14:52)
[2019-02-25] MEDS: oxyCODONE 5MG TAB PO SCH ×2 (07:07→14:52)
[2019-02-25] MEDS: MIRALAX *UNIT DOSE* 17GM PACKET PO SCH (09:47)
[2019-02-25] MEDS: VITAMIN D 1,000 INTERNATIONAL UNITS TABLET PO SCH (09:47)
[2019-02-25] MEDS: FOLIC ACID 1 MG TAB PO SCH (09:47)
[2019-02-25] MEDS: GABAPENTIN 300 MG CAP PO SCH ×3 (09:47→16:59)
[2019-02-25] MEDS: FUROSEMIDE 40 MG TAB PO SCH (09:48)
[2019-02-25] MEDS: SUCRALFATE 1 GM TAB PO SCH ×3 (09:48→16:59)
[2019-02-25] MEDS: DOCUSATE SODIUM 100 MG CAP PO SCH (09:48)
[2019-02-25] MEDS: SPIRONOLACTONE 25 MG TAB PO SCH (09:48)
[2019-02-25 09:49] VITALS: BP 121/50
[2019-02-25] MEDS: MULTIVITAMINS/MINERALS THERAP 1 TAB PO SCH (09:49)
[2019-02-25] MEDS: SINEMET 25-100 MG TAB PO SCH ×2 (09:49→16:59)
[2019-02-25] MEDS: NEBIVOLOL 5 MG TAB (BYSTOLIC) PO SCH (09:49)
[2019-02-25] MEDS: AMIODARONE 200 MG TAB (PACERONE) PO SCH (09:50)
[2019-02-25] MEDS: ANUSOL HC 25MG SUPP PR SCH (09:50)
[2019-02-25 14:00] VITALS: BP 119/61
[2019-02-25] MEDS ORDERED: CEFU1TAB20 PO (15:27)
[2019-02-25] MEDS ORDERED: COLA100C5 PO (15:27)
[2019-02-25] MEDS ORDERED: SUCR1TA PO (15:27)
[2019-02-25] MEDS ORDERED: ANUSHCSU PR (15:27)
[2019-02-25] MEDS ORDERED: PEG1POW PO (15:27)
[2019-02-25] MEDS ORDERED: CARB25TA9 PO (15:27)
[2019-02-25] MEDS ORDERED: MOM30SS2 PO (15:27)
[2019-02-25] MEDS ORDERED: OXYCO5TA PO (15:27)
[2019-02-25] MEDS ORDERED: GABA-843 PO (15:27)
--- NOTE | 2019-02-25 15:38 | REP ---
Thyroid sonography: History: Elevated thyroid hormone. Findings: Right thyroid lobe dimensions are 5.3 x 2.3 x 2.6 cm. Left lobe measures 2.0 x 2.6 x 6.0 cm. Thyroid tissue is heterogeneous. Multiple cystic and solid small areas are seen bilaterally. The thyroid isthmus measures 0.6 cm in thickness. There is a 1.5 cm hypoechoic complex nodule in the right lobe inferiorly. A complex nodule is seen in the right mid lobe medially measuring 1.0 cm. A small 1 mm cyst is seen on the right. There are two cysts in the left lobe each measuring 2 mm. There is a complex nodule in the left lobe measuring 1.1 cm in greatest diameter. No suspicious features are seen. Impression: Multinodular thyroid. Electronically Signed by Sarmad Burt MD 02/25/2019 04:40 P
[2019-02-25] MEDS: CALCIUM/VITAMIN D 500 MG TAB PO SCH (17:01)
[2019-02-25] MEDS: RIVAROXABAN 20 MG TAB (XARELTO) PO SCH (17:02)
--- NOTE | 2019-02-25 18:32 | DS.PDOC ---
Discharge Summary General Date of Admission Feb 22, 2019 at 23:22 Date of Discharge 02/25/2019 Discharge Summary PROCEDURES PERFORMED DURING STAY: Echocardiogram; ejection fraction of 60% with grade 2 diastolic dysfunction. ADMITTING DIAGNOSES: 1. Weakness with multiple falls and fall injury. DISCHARGE DIAGNOSES: 1. Lumbar stenosis, tremors resembling Parkinson's, hyperthyroidism, saddle paresthesia, urinary tract infection due to group B strep, chronic atrial fibrillation for which she is on chronic anticoagulation with Xarelto, [id number] diabetes mellitus, dyslipidemia, hemorrhoids, c onstipation. COMPLICATIONS/CHIEF COMPLAINT: Afib, Frequent Falls, Symptomatic Anemia. HISTORY OF PRESENT ILLNESS/HOSPITAL COURSE: This is an 84-year-old female who have had multiple falls at home prior to admission. The patient had been ambulating with her walker but the son describes jerking motions with her arms and legs so that she could not control her mobility. She sustained a substantial fall resulting in contusion to her left eye. She did not have any loss of consciousness or other injuries such as fracture. The patient was admitted to the medical floor. She did not have any injuries noted to her head on CT. Jerking motions and tremors raise concern for untreated Parkinson's. Patient was started on low-dose carbidopa levodopa. It is recommended that she follow-up with neurology services. Patient was evaluated by physical and occupational therapy services and it was felt that she could benefit from an acute course of therapy prior to being discharged to home. Patient has underlying lumbar stenosis and saddle paresthesias. She has already been evaluated by a neurosurgeon and was not felt to be an appropriate surgical candidate. Patient had had urinary frequency. Urinalysis was positive for leukocyte esterase, white cells and bacteria. Subsequent urine culture was positive for group B strep. Patient is on treatment course with cephalosporin in the form of Ceftin. The patient has had lifelong difficulty with constipation and hemorrhoids. Patient is on a bowel care program with hemorrhoid care as well. On laboratory review. Patient was noted to have a low TSH at 0.2. This inspector automatic typewriter, obtained a full panel which showed a TSH of 0.210, free T4 elevated at 5.1, T4 elevated at 13.8. This was consistent with hyperthyroidism and patient was started on low-dose methimazole. Subsequent thyroid ultrasound shows multinodular thyroid gland but no dominant lesion. Patient will need further evaluation by endocrinology.. DISCHARGE MEDICATIONS: Please see below. ALLERGIES: Please see below. PHYSICAL EXAMINATION ON DISCHARGE: VITAL SIGNS: Please see below. GENERAL: Patient is awake, alert and conversant HEENT: Neck is supple, there is no adenopathy or thyromegaly, oral mucosa is moist, patient has large left periorbital ecchymoses from her fall CARDIOVASCULAR: Regular rate and rhythm with a normal S1 and S2. I do not appreciate a murmur. RESPIRATORY: She is generally clear to auscultation with no rhonchi, rales, wheezes or cough. ABDOMINAL: Abdomen soft. She does have notable central obesity. Her exam is otherwise benign RECTAL: The patient has a moderately large external hemorrhoid with significant internal hemorrhoid. There is a small area of erosion at the 12 o'clock position that may represent a prior bleeding site. There is no current bleeding. EXTREMITIES: No peripheral edema, pedal pulses are generally palpable NEUROLOGICAL: I do not currently note any sort of tremor or jerking, but patient has been reclining in bed PSYCHOLOGICAL: Patient displays normal and pleasant mood, she does appear to have age-related cognition deficits LABORATORY DATA: Please see below. IMAGING: Thyroid ultrasound Findings: Right thyroid lobe dimensions are 5.3 x 2.3 x 2.6 cm. Left lobe measures 2.0 x 2.6 x 6.0 cm. Thyroid tissue is heterogeneous. Multiple cystic and solid small areas are seen bilaterally. The thyroid isthmus measures 0.6 cm in thickness. There is a 1.5 cm hypoechoic complex nodule in the right lobe inferiorly. A complex nodule is seen in the right mid lobe medially measuring 1.0 cm. A small 1 mm cyst is seen on the right. There are two cysts in the left lobe each measuring 2 mm. There is a complex nodule in the left lobe measuring 1.1 cm in greatest diameter. No suspicious features are seen. Impression: Multinodular thyroid. Electronically Signed by Sarmad Burt MD 02/25/2019 04:40 P PROGNOSIS: ACTIVITY: As tolerated with assistance and supervision. DIET: Consistent carbohydrate DISCHARGE PLAN: Patient is to be discharged to acute rehabilitation for moderate stay prior to transitioning to home. Additional recommendations are that she have follow-up appointments with neurology and endocrinology services, rehabilitation services can assist her with this. She will also follow-up with her primary care provider Lashay Lorenzo in 3 weeks. DISPOSITION: 62 D/T Rehab Facility. DISCHARGE INSTRUCTIONS: 1. . ITEMS TO FOLLOWUP ON ON OUTPATIENT: 1. Patient will need recheck of her full thyroid panel in 1 month. DISCHARGE CONDITION: Stable. TIME SPENT ON DISCHARGE: Greater than 40 minutes. Vital Signs/I&Os Vital Signs Date Time Temp Pulse Resp B/P (MAP) Pulse Ox O2 Delivery O2 Flow Rate FiO2 02/25/19 15:45 18 02/25/19 14:00 97.5 70 119/61 (80) 97 02/23/19 00:08 Room Air I&O- Last 24 Hours up to 6 AM 02/25/19 05:59 Intake Total 900 ml Output Total 1875 ml Balance -975 ml Laboratory Data Labs 24H Laboratory Tests 2 02/25/19 05:40: Nucleated Red Blood Cells % (auto) 0.0, Thyroid Stimulating Hormone (TSH) 0.210L, Free Thyroxine Index 5.1H, Thyroxine (T4) 13.8H, Triiodothyronine (T3) Uptake 37 CBC/BMP Laboratory Tests 02/25/19 05:40 Red Blood Count 2.82 L, Mean Corpuscular Volume 98.6 H, Mean Corpuscular Hemoglobin 31.2, Mean Corpuscular Hemoglobin Concent 31.7 L, Red Cell Distribution Width 15.0 H Microbiology Microbiology 02/22/19 Urine Culture - Final, Complete Strep Agalactiae Group B Discharge Medications Scheduled Acetaminophen (Tylenol Extra Strength) 500 Mg Tablet, 500 MG PO TID, (Reported) MORNING, AFTERNOON, AND BEDTIME - ONE TABLET Acetaminophen (Tylenol Extra Strength) 500 Mg Tablet, 1,000 MG PO QPM, (Reported) DINNER - TWO TABS Amiodarone HCl (Amiodarone Hydrochloride) 200 Mg Tablet, 200 MG PO DAILY, (Reported) Ascorbic Acid (Vitamin C) 500 Mg Tablet, 500 MG PO DAILY, (Reported) Bimatoprost (Lumigan) 0.01% 2.5ML Drops, 1 DROP OU QHS, (Reported) Calcium Carbonate/Vitamin D3 (Calcium 600 + Vit D 400 Softgl) 1 Each Capsule, 2 CAP PO QPM, (Reported) AT DINNER Carbidopa/Levodopa (Carbidopa-Levodopa 25-100 Tab) 1 Each Tablet, 1 TAB PO TID Cefuroxime Axetil (Cefuroxime) 250 Mg Tablet, 1 TAB PO BID Cholecalciferol (Vitamin D3) (Vitamin D3) 3,000 Unit Tablet, 3,000 UNIT PO DAILY, (Reported) Docusate Sodium (Colace) 100 Mg Capsule, 100 MG PO BID Duloxetine HCl (Duloxetine HCl) 60 Mg Capsule.dr, 60 MG PO QHS, (Reported) Folic Acid (Folic Acid) 1 Mg Tablet, 2 MG PO 6XWK, (Reported) SATURDAY THROUGH SATURDAY (NOT SATURDAY) Furosemide (Furosemide) 40 Mg Tablet, 40 MG PO DAILY, (Reported) Gabapentin (Gabapentin) 300 Mg Capsule, 300 MG PO QID Hydrocodone/Acetaminophen ([place] 7.5-325 Tablet) 1 Each Tablet, 1 TAB PO DAILY, (Reported) AT LUNCH Hydrocortisone Acetate (Anucort-Hc) 25 Mg Supp.rect, 25 MG TN BID Irbesartan (Irbesartan) 75 Mg Tablet, 75 MG PO QHS, (Reported) Methotrexate Sodium (Methotrexate) 2.5 Mg Tablet, 7.5 MG PO QWEEK, (Reported) ON MONDAYS Multivitamins (Thera M Plus Tablet) 1 Each Tablet, 1 TAB PO DAILY, (Reported) Nebivolol HCl (Bystolic) 2.5 Mg Tablet, 2.5 MG PO DAILY, (Reported) Omeprazole (Omeprazole) 40 Mg Capsule.dr, 40 MG PO DAILY, (Reported) Oxycodone HCl (Oxycodone HCl) 5 Mg Tablet, 5 MG PO TID@0700,1500,2200 Polyethylene Glycol 3350 (Polyethylene Glycol 3350) 17 Gm Powd.pack, 1 PKT PO D AILY Pravastatin Sodium (Pravastatin Sodium) 10 Mg Tablet, 10 MG PO QHS, (Reported) Rivaroxaban (Xarelto) 20 Mg Tablet, 20 MG PO QPM, (Reported) AT DINNER Sitagliptin Phosphate (Januvia) 100 Mg Tablet, 100 MG PO DAILY, (Reported) Spironolactone (Spironolactone) 25 Mg Tablet, 25 MG PO DAILY, (Reported) Sucralfate (Sucralfate) 1 Gm Tablet, 1 GM PO AC Scheduled PRN Lidocaine (Lidocaine) 15 Gm Cream..g., 1 APLCT TOP QID PRN for PAIN, (Reported) APPLIES TO LOWER LEGS, LOWER BACK, RIBS, PRN Magnesium Hydroxide (Milk of Magnesia) 400 Mg/5 Ml Oral.susp, 30 ML PO DAILY PRN for CONSTIPATION Allergies Coded Allergies: pramipexole (Verified Allergy, Intermediate, EXTREME DROWSINESS, INVOLUNTARY MUSC. MOVEMENT, WEAKNESS, 02/22/19) AND CONFUSION Estrogens (Verified Allergy, Unknown, RASH, 02/22/19) Sulfa (Sulfonamide Antibiotics) (Verified Allergy, Unknown, TOLD TO AVOID INTERACTIONS WHILE TAKING METHOTREXATE, 02/22/19) clindamycin (Verified Allergy, Unknown, RASH, 02/22/19) clobetasol (Verified Allergy, Unknown, RASH, 02/22/19) imiquimod (Verified Allergy, Unknown, RASH, 02/22/19) tramadol (Verified Allergy, Unknown, NAUSEA, VOMITING, DIZZINESS, 02/22/19) KARMA MALDONADO MD Feb 25, 2019 18:32
== END 2019-02-25 17:50 | DRG 552 ==
LOC: M ED 21:24 → M ED INP 23:22 → M MSPAV 02-23 01:45
PROVIDERS: ADMIT Family Medicine; ATTEND Internal Medicine
DX: M48.061 Spinal stenosis, lumbar region without neurogenic claudication (principal); Z68.41 Body mass index [BMI] 40.0-44.9, adult; N39.0 Urinary tract infection, site not specified; I48.0 Paroxysmal atrial fibrillation; R53.1 Weakness; D64.9 Anemia, unspecified; E11.42 Type 2 diabetes mellitus with diabetic polyneuropathy; R35.0 Frequency of micturition; K59.00 Constipation, unspecified; K64.8 Other hemorrhoids; E66.9 Obesity, unspecified; E78.5 Hyperlipidemia, unspecified; E04.2 Nontoxic multinodular goiter; K64.4 Residual hemorrhoidal skin tags; E05.90 Thyrotoxicosis, unspecified without thyrotoxic crisis or storm; B95.1 Streptococcus, group B, as the cause of diseases classified elsewhere; Z79.01 Long term (current) use of anticoagulants; Z79.891 Long term (current) use of opiate analgesic; Z79.899 Other long term (current) drug therapy; Z88.2 Allergy status to sulfonamides; Z88.1 Allergy status to other antibiotic agents; Z88.8 Allergy status to other drugs, medicaments and biological substances; Z88.5 Allergy status to narcotic agent; R32 Unspecified urinary incontinence; H40.9 Unspecified glaucoma; Z95.0 Presence of cardiac pacemaker; Z85.828 Personal history of other malignant neoplasm of skin; Z98.41 Cataract extraction status, right eye; Z98.42 Cataract extraction status, left eye

== ENCOUNTER 2019-02-25 17:09 | Inpatient (IN) | payer MEDICARE ==
[~2019-02-25] VITALS: Ht 160 cm; Wt 99.8 kg
[~2019-02-25 17:09] MED LIST changes: +ACET-897 PO; +AMIO200T37 PO; +ANUSHCSU PR; +BIMA01SOL OU; +BYST2.5T2 PO; +C 50TAB PO; +CALCCAP4 PO; +CARB25TA9 PO; +CEFU1TAB20 PO; +COLA100C5 PO; +DULO60CA35 PO; +FOLI1TAB11 PO; +FURO40TA2 PO; +GABA-843 PO; +IRBE75TA5 PO; +JANU100T PO; +LIDO4CRE4 TOP; +METH2.5T48 PO; +MIRA3350 PO; +MOM30SS2 PO; +NORC1TAB8 PO; +OMEP-221 PO; +OXYCO5TA PO; +PEG1POW PO; +PRAV10TA3 PO; +SPIR-10 PO; +SUCR1TA PO; +VITA30004 PO
[2019-02-25] MEDS ORDERED: BISACODYL 10 MG SUPP PR PRN (17:30)
[2019-02-25] MEDS ORDERED: GLUCAGON FOR INJ 1 MG VIAL (J1610) SC PRN (17:30)
[2019-02-25] MEDS: SUCRALFATE 1 GM TAB PO SCH (17:30)
[2019-02-25] MEDS ORDERED: DEXTROSE 50% 50 ML SYRINGE IV PRN (17:30)
[2019-02-25] MEDS ORDERED: GLUCOSE 4 GM CHEW TABLET PO PRN (17:30)
[2019-02-25] MEDS ORDERED: MAALOX 30 ML SUSP *UDC PO PRN (17:30)
[2019-02-25 18:00] VITALS: BP 139/65
[2019-02-25] MEDS: HumaLOG INSULIN (NovoLOG) PER UNIT SC SCH ×2 (18:35→20:29)
[2019-02-25 20:46] VITALS: BP 125/59
[2019-02-25] MEDS: LUMIGAN 0.01% OU SCH (21:00)
[2019-02-25] MEDS: ANUSOL HC 25MG SUPP PR SCH (21:23)
[2019-02-25] MEDS: SENNA 8.6 MG TAB (SENOKOT) PO SCH (21:24)
[2019-02-25] MEDS: PRAVASTATIN 10 MG TAB PO SCH (21:24)
[2019-02-25] MEDS: SINEMET 25-100 MG TAB PO SCH (21:24)
[2019-02-25] MEDS: DULoxetine 30 MG CAP (CYMBALTA) PO SCH (21:24)
[2019-02-25] MEDS: BOUDREAUX'S BUTT PASTE TOP SCH (21:24)
[2019-02-25] MEDS: CEFUROXIME 250 MG TAB PO SCH (21:25)
[2019-02-25] MEDS: ACETAMINOPHEN 500 MG TAB PO SCH (21:25)
[2019-02-25] MEDS: GABAPENTIN 300 MG CAP PO SCH (21:25)
[2019-02-25] MEDS: DOCUSATE SODIUM 100 MG CAP PO SCH (21:25)
[2019-02-25] MEDS: oxyCODONE 5MG TAB PO PRN (22:38)
[2019-02-26 05:40] VITALS: BP 144/60
[2019-02-26 06:29] LABS: BASO # 0.1 10^3/uL (0.0-0.2); BASO % 0.7 % (0.0-1.0); EOS # 0.4 10^3/uL (0.0-0.50); EOS % 4.2 % (0.0-3.0); HEMATOCRIT 29.8 % (36.0-47.0); HEMOGLOBIN 9.5 g/dl (12.0-15.5); LYMPH # 1.3 10^3/uL (1.5-4.5); LYMPH % 16.1 % (24.0-44.0); MEAN CORPUSCULAR HEMOGLOBIN 31.4 pg (27.0-33.0); MEAN CORPUSCULAR HGB CONC 31.9 g/dl (32.0-36.5); MEAN CORPUSCULAR VOLUME 98.3 fl (80.0-96.0); MONO % 11.4 % (0.0-5.0); NEUTROPHILS # 5.5 10^3/uL (1.8-7.7); NEUTROPHILS % 66.8 % (36.0-66.0); PLATELET COUNT, AUTOMATED 350 10^3/uL (150-450); RED BLOOD COUNT 3.03 10^6/uL (4.00-5.40); WHITE BLOOD COUNT 8.3 10^3/uL (4.0-10.0)
[2019-02-26 06:54] LABS: BILIRUBIN,TOTAL 0.2 MG/DL (0.2-1.0); CREATININE FOR GFR 1.39 MG/DL (0.55-1.30); GLOMERULAR FILTRATION RATE 38.6 (>32); TOTAL PROTEIN 7.5 GM/DL (6.4-8.2)
--- NOTE | 2019-02-26 07:56 | IPNPDOC ---
Text Note Date of Service The patient was seen on 02/26/19. NOTE Subjective: Complains of pain and abrasions to bilateral toes. Feels may have been caused by socks. Otherwise denies discomfort Objective: GENERAL: NAD SKIN : Warm, open abrasions to toes on left and right foot, left eye periorbital discoloration HEENT: left eye periorbital discoloration, normocephalic, PERRL, moist mucous membrane CARDIOVASCULAR: irregular rate and rhythm, S1S2, no JVD, no edema, distal pulses not palpable RESP: CTAB, no accessory muscle use noted ABDOMEN: BS+ non distended non tender MS: no joint deformities NEURO: Alert and oriented x 3, CN2-12 grossly intact PSYCH: no anxiety or agitation, appropriate mood and affect. Assessment and plan Severe Spinal stenosis -with saddle region paresthesias -causing significant gait instability, constipation and urinary incontinence -Rehabilitation, mobilization and strengthening by primary team Diabetes mellitus type 2 -With peripheral neuropathy -Protective footwear -Diabetic diet -Finger stick checks prior to meals and at bedtime -Coverage with insulin per sliding scale protocol -continue gabapentin Squamous cell skin cancer -continue methotrexate Urinary incontinence and constipation -due to severe spinal stenosis -bowel regimen by primary team -place hold parameters on all laxatives with peripheral neuropathy, diabetes, Persistent atrial fibrillation antiarrhythmic therapy with amiodarone. -anticoagulation therapy with Xarelto. Toe Abrasions foam dressing to affected toes -skin care and periodic checks -protective footwear at all times DVT prophylaxis -fully anticoagulated -continue xarelto VS,Fishbone, I+O VS, Fishbone, I+O Laboratory Tests 02/26/19 06:13 Red Blood Count 3.03 L, Mean Corpuscular Volume 98.3 H, Mean Corpuscular Hemoglobin 31.4, Mean Corpuscular Hemoglobin Concent 31.9 L, Red Cell Distribution Width 14.9 H, Neutrophils (%) (Auto) 66.8 H, Lymphocytes (%) (Auto) 16.1 L, Monocytes (%) (Auto) 11.4 H, Eosinophils (%) (Auto) 4.2 H, Basophils (%) (Auto) 0.7, Neutrophils # (Auto) 5.5, Lymphocytes # (Auto) 1.3 L, Monocytes # (Auto) 1.0 H, Eosinophils # (Auto) 0.4, Basophils # (Auto) 0.1, Calcium Level 9.0, Aspartate Amino Transf (AST/SGOT) 22, Alanine Aminotransferase (ALT/SGPT) 13, Alkaline Phosphatase 60, Total Bilirubin 0.2, Total Protein 7.5, Albumin 3.0 L Vital Signs Date Time Temp Pulse Resp B/P (MAP) Pulse Ox O2 Delivery O2 Flow Rate FiO2 02/26/19 05:40 97.1 80 144/60 (88) 95 02/25/19 20:46 97 I&O- Last 24 Hours up to 6 AM 02/26/19 06:00 Intake Total 180 ml Output Total 275 ml Balance -95 ml IDA [facility] Feb 26, 2019 07:56
[2019-02-26] MEDS ORDERED: METHOTREXATE 2.5 MG TAB (J8610 PER 2.5MG) PO SCH (09:00)
[2019-02-26] MEDS: BOUDREAUX'S BUTT PASTE TOP SCH ×2 (09:00→21:44)
[2019-02-26] MEDS: DOCUSATE SODIUM 100 MG CAP PO SCH ×2 (09:00→21:00)
[2019-02-26] MEDS: ANUSOL HC 25MG SUPP PR SCH ×2 (09:00→21:40)
[2019-02-26] MEDS: SPIRONOLACTONE 25 MG TAB PO SCH (09:04)
[2019-02-26] MEDS: SUCRALFATE 1 GM TAB PO SCH ×3 (09:04→18:07)
[2019-02-26] MEDS: ACETAMINOPHEN 500 MG TAB PO SCH ×4 (09:05→21:42)
[2019-02-26] MEDS: HumaLOG INSULIN (NovoLOG) PER UNIT SC SCH ×4 (09:06→21:00)
[2019-02-26] MEDS: GABAPENTIN 300 MG CAP PO SCH ×3 (09:06→21:40)
[2019-02-26] MEDS: FOLIC ACID 1 MG TAB PO SCH (09:07)
[2019-02-26] MEDS: ASCORBIC ACID 500 MG TAB PO SCH (09:07)
[2019-02-26] MEDS: SITagliptin 50 MG TAB (JANUVIA) PO SCH (09:07)
[2019-02-26] MEDS: FUROSEMIDE 40 MG TAB PO SCH (09:07)
[2019-02-26] MEDS: SINEMET 25-100 MG TAB PO SCH ×3 (09:08→21:40)
[2019-02-26] MEDS: VITAMIN D 1,000 INTERNATIONAL UNITS TABLET PO SCH (09:08)
[2019-02-26] MEDS: CEFUROXIME 250 MG TAB PO SCH ×2 (09:09→21:40)
[2019-02-26] MEDS: NEBIVOLOL 5 MG TAB (BYSTOLIC) PO SCH (09:10)
[2019-02-26] MEDS: IRBESARTAN 150 MG TAB PO SCH (09:10)
[2019-02-26] MEDS: AMIODARONE 200 MG TAB (PACERONE) PO SCH (09:10)
[2019-02-26] MEDS: oxyCODONE 5MG TAB PO PRN ×2 (09:11→16:04)
[2019-02-26] MEDS: OMEPRAZOLE 20 MG CAP PO SCH (09:11)
[2019-02-26] MEDS: CALCIUM/VITAMIN D 500 MG TAB PO SCH (09:15)
[2019-02-26] MEDS: POLYSPORIN TOPICAL OINTMENT 15GM TOP SCH (09:16)
--- NOTE | 2019-02-26 11:11 | HPEPDOC ---
Fx Artist Note DATE OF ADMISSION: Feb 25, 2019 at 17:55 SOURCE OF ADMISSION INFORMATION: patient and [facility] records CHIEF COMPLAINT: spinal stenosis with recurrent falls HISTORY OF PRESENT ILLNESS: 83 year old female past medical history of severe spinal stenosis with saddle region paresthesias urinary incontinence and constipation with peripheral neuropathy, diabetes, afib, pacemaker, squamous cell skin cancer on methotrexate who presented to [facility] emergency room on February 22 2019 with increased urinary frequency and recurrent falls. Her low back pain was noted to be managed by her primary care physician and she reports not having been evaluated by Orthopedics or neurosurgery for her lumbar stenosis or paresthesias. Patient was found to have bruising of her left eye and persistent lower extremity pain. CTH showed left frontal soft tissue contusion. No fracture...no acute intracranial findings. She was started on antibiotics for a urine culture that grew Strep Agalactiae and transitioned from IV to oral Cefuroxime. Her home dose of gabapentin was lowered due to her creatinine clearance and she was started on a low dose of Sinemet for clinical symptoms concerning for Parkinsons. Additionally, an ultrasound of her thyroid was ordered for elevated thyroid levels and she was found to have a multinodular thyroid with borderline hyperthyroidism. She also had an ECHO on 02/23/19 showing, Preserved overall left ventricular (LV) systolic function. Left ventricular ejection fraction (LVEF) 60% by visual estimate. Paradoxical septal motion. Grade 2 LV diastolic dysfunction. Normal LV wall thickness. She was evaluated by therapy and found to have impairments in mobility and ADLs well below her prior level of function and deemed medically appropriate for discharge to ARU. REVIEW OF SYSTEMS: The following is a completed review of systems and has been reviewed. Review of systems otherwise unremarkable. PAIN: + low back pain radiating down L>R leg EYES: No recent vision changes EARS, NOSE, & THROAT: denies dysphagia CARDIOVASCULAR: denies chest pain or palpitations PULMONARY: Negative. Denies shortness of breath GASTROINTESTINAL: denies nausea/diarrhea/constipation, +fecal incontinence GENITOURINARY: +alcazar MUSCULOSKELETAL: bilat LE weakness, +low back pain NEUROLOGICAL: peripheral neuropathy HEMATOLOGICAL: +anemia SKIN: + external hemorrhoids, left eye ecchymosis PSYCHIATRIC: Unremarkable All other review of systems found to be negative. PAST MEDICAL HISTORY: as per HPI PAST SURGICAL HISTORY: hysterectomy cataract removal bladder suspension ALLERGIES: Please see below. MEDICATIONS: Please see below. FAMILY HISTORY:heart disease SOCIAL HISTORY: lives with son, non-smoker, no ETOH or illicit drugs DIET: low sodium, will fluid restrict to 1800cc PHYSICAL EXAMINATION: VITAL SIGNS: Please see below. GENERAL: Pleasant and cooperative. No acute distress. HEENT: PERRL. Extraocular movements intact. Clear conjunctiva, left periorbital ecchymosis CARDIOVASCULAR: Regular rate and rhythm. No murmurs, rubs, or gallops, + pacemaker LUNGS: Clear to auscultation bilaterally. No wheezes. No rhonchi ABDOMEN: Soft, nontender, nondistended. Positive bowel sounds. Normal active bowel sounds, +diastasis NEUROLOGICAL: Alert and oriented times three. Cranial nerves II through XII grossly intact. Sensation diminished in stocking pattern bilat LE (-) Clonus, negative Babinski no tremor/cogwheel rigidity noted EXTREMITIES:5\5 strength bilateral upper extremities. 4\5 strength right lower extremity. 4/5 strength in left lower extremity. (-) Homans bilat SKIN: left brisa-orbital ecchymosis, +external hemorrhoids, no sacral ulcers IMAGING: Imaging documentation personally reviewed by record FUNCTIONAL STATUS: Premorbid: Mod-Independent with all activities of daily life as well as mobility using a cane On Admission: Contact guard-minimal assist ambulating 20 ft with a rolling walker, Total assist for lower body dressing, minimal assistance for [id number], GOALS: Mod-I with RW community distances, Mod-I for stairs, bathing, dressing, toileting, dynamic balance, fall recovery. Assess for DME needs, caregiver training, and medical optimization. ASSESSMENT:84-year-old F with past medical history of lumbar stenosis with saddle region paresthesias who presents status post recurrent falls with UTI PLAN: 1. Rehab: PT- strengthen LE, improve balance, preserve LE ROM -OT- strengthen UE, optimize fine motor skills for ADL managements, preserve UE ROM 2. Neuro: spinal stenosis with LE weakness concerning for neurogenic claudication- will obtain X-rays and CT scan while on ARU to rule out instability and an ortho consult to discuss possible interventions, patient neurologically stable now, however clearly has weakness with neurogenic bladder and bowel 3. Cardiac: pmh Afib with PM, c/u amiodarone and beta-daryl, on Xarelto -HTN- c/u home meds, medicine consulted to assist in management -HLD- statin -recent ECHO showing grade 2 diastolic dysfunction, will fluid restrict and monitor for fluid overload during rehab course 4. Endo: pmh DM, continue Januvia, will check FS and provide ISS -recent labs concerning for subclinical hyperthyroidism- will need endocrine f/u upon discharge 5. DVT ppx: Xarelto 6. GI ppx: omeprazole and sucralfate 7. Heme: anemia- will order FOBT, patient with known hemorrhoids, Anusol ordered, monitor H/H, if Hgb drops below 8 will transfuse 8. Pain: c/u gabapentin, Tylenol, and oxycodone 9. Skin: monitor for skin breakdown 10. : c/u course of Cefuroxime, will remove Alcazar and check PVRs 11. Dispo: TBD POST ADMISSION PHYSICIAN EVALUATION: Medical and functional status: Description of medical status, medical assessment: As above. Rehabilitation diagnosis and current and prior cold morbid medical conditions as above. Risk of complications and plans to mitigate them as above. Description of functional status current status is as above. Prior status as above. Status compared to preadmission: There are no clinically significant differences between the patient's current status and the information described on the preadmission screening document. Treatment plan anticipated: Treatment plan is as described above. Required disciplines including physical therapy, occupational therapy, others as noted above. Intensity of services: 3 hours a day, 6 days a week. Special considerations: There are no specific special or safety considerations that would likely preclude immediate implementation of an intensive rehabilitation program or subsequently influence the plan of care. ATTESTATION: Considering all the information above, it is my best judgment that this patient requires intensive rehabilitation therapy as described above and an inpatient hospital environment due to the complexity of nursing, medical, and rehabilitation needs required by the patient. Furthermore, this patient can reasonably be expected to participate in an benefit from an inpatient rehabilitation stay with an interdisciplinary team approach to the delivery of rehabilitation care under the direction and supervision of rehabilitation physician. PROGNOSIS: Excellent. ESTIMATED LENGTH OF STAY:12-14 days. PROJECTED DISCHARGE DESTINATION: Home with family support and any durable medical equipment required to increase functional safety and mobility. TIME SPENT COUNSELING AND COORDINATING INITIAL CARE: Greater than 70 minutes. Vital Signs Vital Sign - Last 24 Hours 02/25/19 02/25/19 02/25/19 02/26/19 18:00 20:46 22:38 00:30 Temp 96.9 97.0 Pulse 70 97 Resp 18 18 18 18 B/P (MAP) 139/65 (89) 125/59 (81) Pulse Ox 95 97 02/26/19 02/26/19 02/26/19 05:40 09:10 09:11 Temp 97.1 Pulse 80 Resp 80 18 B/P (MAP) 144/60 (88) 144/68 Pulse Ox 95 Laboratory Data CBC/BMP Laboratory Tests 02/26/19 06:13 Red Blood Count 3.03 L, Mean Corpuscular Volume 98.3 H, Mean Corpuscular Hemoglobin 31.4, Mean Corpuscular Hemoglobin Concent 31.9 L, Red Cell Distribution Width 14.9 H, Neutrophils (%) (Auto) 66.8 H, Lymphocytes (%) (Auto) 16.1 L, Monocytes (%) (Auto) 11.4 H, Eosinophils (%) (Auto) 4.2 H, Basophils (%) (Auto) 0.7, Neutrophils # (Auto) 5.5, Lymphocytes # (Auto) 1.3 L, Monocytes # (Auto) 1.0 H, Eosinophils # (Auto) 0.4, Basophils # (Auto) 0.1, Calcium Level 9.0, Aspartate Amino Transf (AST/SGOT) 22, Alanine Aminotransferase (ALT/SGPT) 13, Alkaline Phosphatase 60, Total Bilirubin 0.2, Total Protein 7.5, Albumin 3.0 L Labs 24H Laboratory Tests 2 02/25/19 20:24: Bedside Glucose (Misc Panel) 126H 02/26/19 06:08: Bedside Glucose (Misc Panel) 138H 02/26/19 06:13: Immature Granulocyte % (Auto) 0.8, White Blood Count 8.3, Red Blood Count 3.03L, Hemoglobin 9.5L, Hematocrit 29.8L, Mean Corpuscular Volume 98.3H, Mean Corpuscular Hemoglobin 31.4, Mean Corpuscular Hemoglobin Concent 31.9L, Red Cell Distribution Width 14.9H, Platelet Count 350, Neutrophils (%) (Auto) 66.8H, Lymphocytes (%) (Auto) 16.1L, Monocytes (%) (Auto) 11.4H, Eosinophils (%) (Auto) 4.2H, Basophils (%) (Auto) 0.7, Neutrophils # (Auto) 5.5, Lymphocytes # (Auto) 1.3L, Monocytes # (Auto) 1.0H, Eosinophils # (Auto) 0.4, Basophils # (Auto) 0.1, Nucleated Red Blood Cells % (auto) 0.0, Anion Gap 6L, Glomerular Filtration Rate 38.6, Blood Urea Nitrogen 30H, Creatinine 1.39H, Sodium Level 138, Potassium Level 5.0, Chloride Level 102, Carbon Dioxide Level 30, Calcium Level 9.0, Aspartate Amino Transf (AST/SGOT) 22, Alanine Aminotransferase (ALT/SGPT) 13, Alkaline Phosphatase 60, Total Bilirubin 0.2, Total Protein 7.5, Albumin 3.0L, Albumin/Globulin Ratio 0.67L FSBS Laboratory Tests Test 02/25/19 20:24 02/26/19 06:08 Range/Units Bedside Glucose (Misc Panel) 126 138 83-110 MG/DL Home Medications Scheduled Acetaminophen (Tylenol Extra Strength) 500 Mg Tablet, 500 MG PO TID, (Reported) MORNING, AFTERNOON, AND BEDTIME - ONE TABLET Acetaminophen (Tylenol Extra Strength) 500 Mg Tablet, 1,000 MG PO QPM, (Reported) DINNER - TWO TABS Amiodarone HCl (Amiodarone Hydrochloride) 200 Mg Tablet, 200 MG PO DAILY, (Reported) Ascorbic Acid (Vitamin C) 500 Mg Tablet, 500 MG PO DAILY, (Reported) Bimatoprost (Lumigan) 0.01% 2.5ML Drops, 1 DROP OU QHS, (Reported) Calcium Carbonate/Vitamin D3 (Calcium 600 + Vit D 400 Softgl) 1 Each Capsule, 2 CAP PO QPM, (Reported) AT DINNER Carbidopa/Levodopa (Carbidopa-Levodopa 25-100 Tab) 1 Each Tablet, 1 TAB PO TID Cefuroxime Axetil (Cefuroxime) 250 Mg Tablet, 1 TAB PO BID Cholecalciferol (Vitamin D3) (Vitamin D3) 3,000 Unit Tablet, 3,000 UNIT PO DAILY, (Reported) Docusate Sodium (Colace) 100 Mg Capsule, 100 MG PO BID Duloxetine HCl (Duloxetine HCl) 60 Mg Capsule.dr, 60 MG PO QHS, (Reported) Folic Acid (Folic Acid) 1 Mg Tablet, 2 MG PO 6XWK, (Reported) SATURDAY THROUGH SATURDAY (NOT SATURDAY) Furosemide (Furosemide) 40 Mg Tablet, 40 MG PO DAILY, (Reported) Gabapentin (Gabapentin) 300 Mg Capsule, 300 MG PO QID Hydrocodone/Acetaminophen ([place] 7.5-325 Tablet) 1 Each Tablet, 1 TAB PO DAILY, (Reported) AT LUNCH Hydrocortisone Acetate (Anucort-Hc) 25 Mg Supp.rect, 25 MG IA BID Irbesartan (Irbesartan) 75 Mg Tablet, 75 MG PO QHS, (Reported) Methotrexate Sodium (Methotrexate) 2.5 Mg Tablet, 7.5 MG PO QWEEK, (Reported) ON MONDAYS Multivitamins (Thera M Plus Tablet) 1 Each Tablet, 1 TAB PO DAILY, (Reported) Nebivolol HCl (Bystolic) 2.5 Mg Tablet, 2.5 MG PO DAILY, (Reported) Omeprazole (Omeprazole) 40 Mg Capsule.dr, 40 MG PO DAILY, (Reported) Oxycodone HCl (Oxycodone HCl) 5 Mg Tablet, 5 MG PO TID@0700,1500,2200 Polyethylene Glycol 3350 (Polyethylene Glycol 3350) 17 Gm Powd.pack, 1 PKT PO DAILY Pravastatin Sodium (Pravastatin Sodium) 10 Mg Tablet, 10 MG PO QHS, (Reported) Rivaroxaban (Xarelto) 20 Mg Tablet, 20 MG PO QPM, (Reported) AT DINNER Sitagliptin Phosphate (Januvia) 100 Mg Tablet, 100 MG PO DAILY, (Reported) Spironolactone (Spironolactone) 25 Mg Tablet, 25 MG PO DAILY, (Reported) Sucralfate (Sucralfate) 1 Gm Tablet, 1 GM PO AC Scheduled PRN Lidocaine (Lidocaine) 15 Gm Cream..g., 1 APLCT TOP QID PRN for PAIN, (Reported) APPLIES TO LOWER LEGS, LOWER BACK, RIBS, PRN Magnesium Hydroxide (Milk of Magnesia) 400 Mg/5 Ml Oral.susp, 30 ML PO DAILY PRN for CONSTIPATION Allergies Coded Allergies: pramipexole (Verified Allergy, Intermediate, EXTREME DROWSINESS, INVOLUNTARY MUSC. MOVEMENT, WEAKNESS, 02/22/19) AND CONFUSION Estrogens (Verified Allergy, Unknown, RASH, 02/22/19) Sulfa (Sulfonamide Antibiotics) (Verified Allergy, Unknown, TOLD TO AVOID INTERACTIONS WHILE TAKING METHOTREXATE, 02/22/19) clindamycin (Verified Allergy, Unknown, RASH, 02/22/19) clobetasol (Verified Allergy, Unknown, RASH, 02/22/19) imiquimod (Verified Allergy, Unknown, RASH, 02/22/19) tramadol (Verified Allergy, Unknown, NAUSEA, VOMITING, DIZZINESS, 02/22/19) A-FIB/CHADSVASC A-FIB History Current/History of A-Fib/PAF?: Yes Current PO Anticoag Therapy: Yes VANDANA SEGUNDO MD Feb 26, 2019 11:11
[2019-02-26 14:00] VITALS: BP 103/57
--- NOTE | 2019-02-26 14:46 | IPNPDOC ---
PM&R Progress Note DATE OF SERVICE: Feb 26, 2019 Tobacco Wrapping Machine Tender Progress Note Subjective: Patient reporting her pain is well controlled and would like to use her home Aspercream for her thighs. She reports she is voiding without difficulty. REVIEW OF SYSTEMS: The following is a completed review of systems and has been reviewed. Review of systems otherwise unremarkable. PAIN: + low back pain radiating down L>R leg EYES: No recent vision changes EARS, NOSE, & THROAT: denies dysphagia CARDIOVASCULAR: denies chest pain or palpitations PULMONARY: Negative. Denies shortness of breath GASTROINTESTINAL: denies nausea/diarrhea/constipation, +fecal incontinence GENITOURINARY: denies dysuria MUSCULOSKELETAL: bilat LE weakness, +low back pain NEUROLOGICAL: peripheral neuropathy HEMATOLOGICAL: +anemia SKIN: + external hemorrhoids, left eye ecchymosis PSYCHIATRIC: Unremarkable All other review of systems found to be negative. PHYSICAL EXAMINATION: VITAL SIGNS: Please see below. GENERAL: Pleasant and cooperative. No acute distress. HEENT: PERRL. Extraocular movements intact. Clear conjunctiva, left periorbital ecchymosis CARDIOVASCULAR: Regular rate and rhythm. No murmurs, rubs, or gallops, + pacemaker LUNGS: Clear to auscultation bilaterally. No wheezes. No rhonchi ABDOMEN: Soft, nontender, nondistended. Positive bowel sounds. Normal active bowel sounds, +diastasis NEUROLOGICAL: Alert and oriented times three. Cranial nerves II through XII grossly intact. Sensation diminished in stocking pattern bilat LE and in sacral region (-) Clonus, negative Babinski no tremor/cogwheel rigidity noted EXTREMITIES:5\\5 strength bilateral upper extremities. 4\\5 strength right lower extremity. 4/5 strength in left lower extremity. (-) Homans bilat SKIN: left brisa-orbital ecchymosis, +external hemorrhoids, no sacral ulcers ASSESSMENT:84-year-old F with past medical history of lumbar stenosis with saddle region paresthesias who presents status post recurrent falls with UTI PLAN: 1. Rehab: PT- strengthen LE, improve balance, preserve LE ROM -OT- strengthen UE, optimize fine motor skills for ADL managements, preserve UE ROM -right foot drop- trial of AFO 2. Neuro: spinal stenosis with LE weakness concerning for neurogenic c laudication- will obtain X-rays and CT scan while on ARU to rule out instability and an ortho consult to discuss possible interventions, patient neurologically stable now, however clearly has weakness with neurogenic bladder and bowel -Lumbar x-ray with flexion/extension, "Scoliosis and diffuse degenerative spondylosis. No instability is appreciated. A grade 1 degenerative L3-4 spondylolisthesis is seen." and CT lumbar spine, "Severe central canal stenosis at L3-4 as above with significant bilateral neural foraminal impingement. There are other levels of central canal stenosis and neural foraminal narrowing as noted above. Findings are felt to be morphologically unchanged from the November 25, 2018 prior study."- given stability of listhesis will defer surgical consult and will refer on discharge 3. Cardiac: pmh Afib with PM, c/u amiodarone and beta-daryl, on Xarelto -HTN- c/u home meds, medicine consulted to assist in management -HLD- statin -recent ECHO showing grade 2 diastolic dysfunction, will fluid restrict and monitor for fluid overload during rehab course 4. Endo: pmh DM, continue Januvia, will check FS and provide ISS -recent labs concerning for subclinical hyperthyroidism- will need endocrine f/u upon discharge 5. DVT ppx: Xarelto 6. GI ppx: c/u omeprazole and sucralfate 7. Heme: anemia- f/u FOBT, patient with known hemorrhoids, Anusol ordered, monitor H/H, if Hgb drops below 8 will transfuse 8. Pain: c/u gabapentin, Tylenol, and oxycodone 9. Skin: monitor for skin breakdown 10. : c/u course of Cefuroxime, voiding well 11. Dispo: TBD Allergies Coded Allergies: pramipexole (Verified Allergy, Intermediate, EXTREME DROWSINESS, INVOLUNTARY MUSC. MOVEMENT, WEAKNESS, 02/22/19) AND CONFUSION Estrogens (Verified Allergy, Unknown, RASH, 02/22/19) Sulfa (Sulfonamide Antibiotics) (Verified Allergy, Unknown, TOLD TO AVOID INTERACTIONS WHILE TAKING METHOTREXATE, 02/22/19) clindamycin (Verified Allergy, Unknown, RASH, 02/22/19) clobetasol (Verified Allergy, Unknown, RASH, 02/22/19) imiquimod (Verified Allergy, Unknown, RASH, 02/22/19) tramadol (Verified Allergy, Unknown, NAUSEA, VOMITING, DIZZINESS, 02/22/19) Vital Signs Vital Signs Date Time Temp Pulse Resp B/P (MAP) Pulse Ox O2 Delivery O2 Flow Rate FiO2 02/26/19 14:00 97.7 65 17 103/57 (72) 93 Laboratory Data CBC/BMP Laboratory Tests 02/26/19 06:13 Red Blood Count 3.03 L, Mean Corpuscular Volume 98.3 H, Mean Corpuscular Hemoglobin 31.4, Mean Corpuscular Hemoglobin Concent 31.9 L, Red Cell Distribution Width 14.9 H, Neutrophils (%) (Auto) 66.8 H, Lymphocytes (%) (Auto) 16.1 L, Monocytes (%) (Auto) 11.4 H, Eosinophils (%) (Auto) 4.2 H, Basophils (%) (Auto) 0.7, Neutrophils # (Auto) 5.5, Lymphocytes # (Auto) 1.3 L, Monocytes # (Auto) 1.0 H, Eosinophils # (Auto) 0.4, Basophils # (Auto) 0.1, Calcium Level 9.0, Aspartate Amino Transf (AST/SGOT) 22, Alanine Aminotransferase (ALT/SGPT) 13, Alkaline Phosphatase 60, Total Bilirubin 0.2, Total Protein 7.5, Albumin 3.0 L Labs 24H Laboratory Tests 2 02/25/19 20:24: Bedside Glucose (Misc Panel) 126H 02/26/19 06:08: Bedside Glucose (Misc Panel) 138H 02/26/19 06:13: Immature Granulocyte % (Auto) 0.8, White Blood Count 8.3, Red Blood Count 3.03L, Hemoglobin 9.5L, Hematocrit 29.8L, Mean Corpuscular Volume 98.3H, Mean Corpuscular Hemoglobin 31.4, Mean Corpuscular Hemoglobin Concent 31.9L, Red Cell Distribution Width 14.9H, Platelet Count 350, Neutrophils (%) (Auto) 66.8H, Lymphocytes (%) (Auto) 16.1L, Monocytes (%) (Auto) 11.4H, Eosinophils (%) (Auto) 4.2H, Basophils (%) (Auto) 0.7, Neutrophils # (Auto) 5.5, Lymphocytes # (Auto) 1.3L, Monocytes # (Auto) 1.0H, Eosinophils # (Auto) 0.4, Basophils # (Auto) 0.1, Nucleated Red Blood Cells % (auto) 0.0, Anion Gap 6L, Glomerular Filtration Rate 38.6, Blood Urea Nitrogen 30H, Creatinine 1.39H, Sodium Level 138, Potassium Level 5.0, Chloride Level 102, Carbon Dioxide Level 30, Calcium Level 9.0, Aspartate Amino Transf (AST/SGOT) 22, Alanine Aminotransferase (ALT/SGPT) 13, Alkaline Phosphatase 60, Total Bilirubin 0.2, Total Protein 7.5, Albumin 3.0L, Albumin/Globulin Ratio 0.67L 02/26/19 11:31: Bedside Glucose (Misc Panel) 114H Current Medications Current Medications Current Medications Acetaminophen (Tylenol Tab) 500 mg TID@0900,1300,1700 PO Last administered on 02/26/19at 12:36; Start 02/26/19 at 09:00 Acetaminophen (Tylenol Tab) 1,000 mg QHS PO Last administered on 02/25/19at 21 :25; Start 02/25/19 at 21:00 Al Hydrox/Mg Hydrox/Simethicone (Mylanta) 30 ml Q4HP PRN PO DYSPEPSIA; Start 02/25/19 at 17:30 Amiodarone HCl (Pacerone, Cordarone) 200 mg DAILY PO Last administered on 02/26/19at 09:10; Start 02/26/19 at 09:00 Ascorbic Acid (Vitamin C) 500 mg DAILY PO Last administered on 02/26/19at 09:07; Start 02/26/19 at 09:00 Bacitracin/ Polymyxin B Sulfate (Polysporin Top Oint) apply to toe ulcers and co... DAILY TOP Last administered on 02/26/19at 09:16; Start 02/26/19 at 09:00 Bisacodyl (Dulcolax Suppository) 10 mg DAILYPRN PRN RI CONSTIPATION; Start 02/25/19 at 17:30 Calcium/Vitamin D (Oscal D) 1,000 mg DAILY PO Last administered on 02/26/19at 09:15; Start 02/26/19 at 09:00 Carbidopa/Levodopa (Sinemet 25/100) 1 tab TID PO Last administered on 02/26/19at 09:08; Start 02/25/19 at 21:00 Cefuroxime Axetil (Ceftin) 250 mg BID PO Last administered on 02/26/19at 09:09; Start 02/25/19 at 21:00; Stop 03/04/19 at 09:01 Dextrose (Dextrose 50%) 25 ml ASDIRECTED PRN IV SEE LABEL COMMENTS; Start 02/25/19 at 17:30 Docusate Sodium (Colace) 100 mg BID PO Last administered on 02/25/19at 21:25; Start 02/25/19 at 21:00 Duloxetine HCl (Cymbalta) 60 mg QHS PO Last administered on 02/25/19at 21:24; Start 02/25/19 at 21:00 Folic Acid (Folic Acid) 1 mg DAILY PO Last administered on 02/26/19at 09:07; Start 02/26/19 at 09:00 Furosemide (Lasix) 40 mg DAILY PO Last administered on 02/26/19at 09:07; Start 02/26/19 at 09:00 Gabapentin (Neurontin) 300 mg TID PO Last administered on 02/26/19at 09:06; Start 02/25/19 at 21:00 Glucagon (Glucagon) 1 mg ASDIRECTED PRN SC SEE LABEL COMMENTS; Start 02/25/19 at 17:30 Glucose (Glucose) 16 GM ASDIRECTED PRN PO SEE LABEL COMMENTS; Start 02/25/19 at 17:30 Hydrocortisone Acetate (Anusol Hc Supp) 25 mg BID RI Last administered on 02/25/19at 21:23; Start 02/25/19 at 21:00 Insulin Human Lispro (HumaLOG INSULIN) SEE PROTOCOL TABLE AC SC Last administered on 02/26/19at 12:35; Start 02/25/19 at 17:30 Insulin Human Lispro (HumaLOG INSULIN) SEE PROTOCOL TABLE QHS SC ; Start 02/25/19 at 21:00 Irbesartan (Avapro) 75 mg DAILY PO Last administered on 02/26/19at 09:10; Start 02/26/19 at 09:00 Methotrexate (Folex) 7.5 mg Th@0900 PO Last administered on 02/26/19at 09:08; Start 02/26/19 at 09:00 Miscellaneous (Unresolved Clarification Entry) SEE LABEL COMMENTS DAILY XX ; Start 02/25/19 at 09:00; Status Cancel Nebivolol (Bystolic) 2.5 mg DAILY PO Last administered on 02/26/19 09:10; Start 02/26/19 at 09:00 Omeprazole (PriLOSEC) 40 mg DAILY PO Last administered on 02/26/19 09:11; Start 02/26/19 at 09:00 Oxycodone HCl (Roxicodone, Oxyir) 5 mg Q6HP PRN PO PAIN Last administered on 02/26/19 09:11; Start 02/25/19 at 17:30 Patient Own Medication (Patient'S Own Med) [place] 0.01% INSTIL... QHS OU ; Start 02/25/19 at 21:00 Pravastatin Sodium (Pravachol) 10 mg QHS PO Last administered on 02/25/19 21:24; Start 02/25/19 at 21:00 Rivaroxaban (Xarelto) 20 mg QPM@1800 PO ; Start 02/26/19 at 18:00 Senna (Senokot) 1 tab QHS PO Last administered on 02/25/19 21:24; Start 02/25/19 at 21:00 Sitagliptin Phosphate (Januvia) 100 mg DAILY PO Last administered on 02/26/19 09:07; Start 02/26/19 at 09:00 Spironolactone (Aldactone) 25 mg DAILY PO Last administered on 02/26/19 09:04; Start 02/26/19 at 09:00 Sucralfate (Carafate) 1 gm AC PO Last administered on 02/26/19at 12:35; Start 02/25/19 at 17:30 Vitamin D (Vitamin D) 3,000 units DAILY PO Last administered on 02/26/19at 09:08; Start 02/26/19 at 09:00 Zinc Oxide (Boudreauxs Butt Paste) sacrum BID TOP Last administered on 02/25/19 21:24; Start 02/25/19 at 21:00 VANDANA SEGUNDO MD Feb 26, 2019 14:46
--- NOTE | 2019-02-26 15:10 | REP ---
CT LUMBAR SPINE WITHOUT CONTRAST: HISTORY: Regional anesthesia a saddle distribution. Lower extremity weakness. Comparison CT study November 25, 2018. CT FINDINGS: A moderate dextroconvex rotoscoliotic curve is again noted. Bridging osteophytes are seen along the right sided L4-5. This produces at least partial fusion of the L4-5 disc. The L5-S1 disc appears to be ankylosed as well. These findings are unchanged. There is no evidence of fracture or collapse. No bony destructive lesion is seen. Vascular calcifications noted in the aorta which is normal in caliber. No extra spinal abnormality. At the L1-2 level there is a vacuum phenomenon in the narrowed disc. There is diffuse disc bulging. Canal size is mildly narrowed as before. There is bulging of the foraminal segment of the right side of the disc at L1-2. This appears to be unchanged. At L2-3, there is a vacuum phenomenon with more pronounced disc space narrowing. The disc space narrowing is unchanged. There is mild diffuse posterior disc bulging. Mild to moderate central canal stenosis is noted at L2-3 due to disc bulging and some facet hypertrophy. There is neural foraminal encroachment on the left at L2-3 due to discogenic spurring and some facet hypertrophy. This is unchanged. At L3-4, there is degenerative disc disease with vacuum phenomenon. There is severe central canal stenosis at L3-4 with significant compression of the thecal sac due to a central and right posterior disc protrusion which is unchanged from prior study. There is ligamentum flavum and some facet hypertrophy and canal size developmentally small, which also contributes to the spinal stenosis. The thecal sac appears to measure only 4 mm in greatest AP dimension in the midline. There is a 2 mm L3-4 degenerative spondylolisthesis unchanged. There is significant bilateral neural foraminal narrowing at L3-4 due to disc bulging facet hypertrophy. This is more pronounced on the left than the right and appears to be unchanged on CT imaging. At L4-5, there is mild central canal narrowing due to diffuse disc bulging. There is facet hypertrophy bilaterally. There is right-sided neural foraminal encroachment due to disc bulging and some facet hypertrophy. These findings are unchanged. At L5-S1, there is minimal diffuse disc bulging. No foraminal encroachment is seen. No central canal stenosis. IMPRESSION: Severe central canal stenosis at L3-4 as above with significant bilateral neural foraminal impingement. There are other levels of central canal stenosis and neural foraminal narrowing as noted above. Findings are felt to be morphologically unchanged from the November 25, 2018 prior study. Electronically Signed by Sarmad Burt MD 02/26/2019 05:12 P
--- NOTE | 2019-02-26 17:07 | REP ---
Lumbar spine series: Seven views including flexion extension views. History: Lumbar stenosis. Check for instability. No comparison radiographs. Findings: There is a moderate dextroconvex rotoscoliotic curve. No fracture or collapse is seen. There is straightening. Alignment is otherwise normal. Discogenic spurring is seen diffusely. There is a grade 1 6 mm L3-4 degenerative spondylolisthesis visible on the lateral radiograph. Flexion extension lateral views show limited range of flexion extension motion but no subluxation or instability. Impression: Scoliosis and diffuse degenerative spondylosis. No instability is appreciated. A grade 1 degenerative L3-4 spondylolisthesis is seen. Electronically Signed by Sarmad Burt MD 02/26/2019 05:16 P
[2019-02-26] MEDS: RIVAROXABAN 20 MG TAB (XARELTO) PO SCH (18:08)
[2019-02-26] MEDS: SENNA 8.6 MG TAB (SENOKOT) PO SCH (21:00)
[2019-02-26] MEDS: DULoxetine 30 MG CAP (CYMBALTA) PO SCH (21:40)
[2019-02-26] MEDS: PRAVASTATIN 10 MG TAB PO SCH (21:40)
[2019-02-26] MEDS: LUMIGAN 0.01% OU SCH (21:43)
[2019-02-26 22:00] VITALS: BP 100/52
[2019-02-27 06:00] VITALS: BP 105/52
[2019-02-27] MEDS: oxyCODONE 5MG TAB PO PRN (06:43)
[2019-02-27] MEDS: IRBESARTAN 150 MG TAB PO SCH (08:58)
[2019-02-27] MEDS: SITagliptin 50 MG TAB (JANUVIA) PO SCH (08:59)
[2019-02-27] MEDS: GABAPENTIN 300 MG CAP PO SCH ×3 (08:59→20:39)
[2019-02-27] MEDS: ACETAMINOPHEN 500 MG TAB PO SCH ×4 (08:59→20:40)
[2019-02-27] MEDS: DOCUSATE SODIUM 100 MG CAP PO SCH ×2 (08:59→20:39)
[2019-02-27] MEDS: VITAMIN D 1,000 INTERNATIONAL UNITS TABLET PO SCH (08:59)
[2019-02-27] MEDS: ASCORBIC ACID 500 MG TAB PO SCH (08:59)
[2019-02-27] MEDS: OMEPRAZOLE 20 MG CAP PO SCH (08:59)
[2019-02-27] MEDS: SUCRALFATE 1 GM TAB PO SCH ×3 (08:59→17:27)
[2019-02-27] MEDS: CALCIUM/VITAMIN D 500 MG TAB PO SCH (08:59)
[2019-02-27] MEDS: FUROSEMIDE 40 MG TAB PO SCH (09:00)
[2019-02-27] MEDS: AMIODARONE 200 MG TAB (PACERONE) PO SCH (09:00)
[2019-02-27] MEDS: NEBIVOLOL 5 MG TAB (BYSTOLIC) PO SCH (09:00)
[2019-02-27] MEDS: FOLIC ACID 1 MG TAB PO SCH (09:00)
[2019-02-27] MEDS: ANUSOL HC 25MG SUPP PR SCH ×2 (09:00→21:26)
[2019-02-27] MEDS: CEFUROXIME 250 MG TAB PO SCH ×2 (09:00→20:38)
[2019-02-27] MEDS: SINEMET 25-100 MG TAB PO SCH ×3 (09:00→20:39)
[2019-02-27] MEDS: SPIRONOLACTONE 25 MG TAB PO SCH (09:00)
[2019-02-27] MEDS: HumaLOG INSULIN (NovoLOG) PER UNIT SC SCH ×4 (09:01→20:40)
[2019-02-27] MEDS: BOUDREAUX'S BUTT PASTE TOP SCH ×2 (09:02→20:42)
[2019-02-27] MEDS: POLYSPORIN TOPICAL OINTMENT 15GM TOP SCH (09:03)
--- NOTE | 2019-02-27 09:21 | IPNPDOC ---
Text Note Date of Service The patient was seen on 02/27/19. NOTE Subjective: Abrasion to bilateral toes were dressed and covered with band aids yesterday. Objective: GENERAL: NAD SKIN : Warm, open abrasions to toes on left and right foot, left eye periorbital discoloration HEENT: left eye periorbital discoloration, normocephalic, PERRL, moist mucous membrane CARDIOVASCULAR: irregular rate and rhythm, S1S2, no JVD, no edema, distal pulses not palpable RESP: CTAB, no accessory muscle use noted ABDOMEN: BS+ non distended non tender MS: no joint deformities NEURO: Alert and oriented x 3, CN2-12 grossly intact PSYCH: no anxiety or agitation, appropriate mood and affect. Assessment and plan Severe Spinal stenosis -with saddle region paresthesias -causing significant gait instability, constipation and urinary incontinence -Rehabilitation, mobilization and strengthening by primary team Diabetes mellitus type 2 -Continue diabetic diet -Finger stick checks prior to meals and at bedtime -Protective footwear, continue gabapentin -Coverage with insulin per sliding scale protocol Squamous cell skin cancer -continue methotrexate Urinary incontinence and constipation -due to severe spinal stenosis -bowel regimen by primary team -place hold parameters on all laxatives with peripheral neuropathy, diabetes, Persistent atrial fibrillation antiarrhythmic therapy with amiodarone. -anticoagulation therapy with Xarelto. Toe Abrasions foam dressing to affected toes -skin care and periodic checks -protective footwear at all times DVT prophylaxis -fully anticoagulated -continue xarelto VS,Fishbone, I+O VS, Fishbone, I+O Vital Signs Date Time Temp Pulse Resp B/P (MAP) Pulse Ox O2 Delivery O2 Flow Rate FiO2 02/27/19 09:00 91 105/52 02/27/19 06:43 18 02/27/19 06:00 97.7 97 I&O- Last 24 Hours up to 6 AM 02/27/19 06:00 Intake Total 1740 ml Output Total 950 ml Balance 790 ml IDA TOM Feb 27, 2019 09:21
--- NOTE | 2019-02-27 11:39 | IPNPDOC ---
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 REVIEW OF SYSTEMS: The following is a completed review of systems and has been reviewed. Review of systems otherwise unremarkable. PAIN: + low back pain radiating down L>R leg EYES: No recent vision changes EARS, NOSE, & THROAT: denies dysphagia CARDIOVASCULAR: denies chest pain or palpitations PULMONARY: Negative. Denies shortness of breath GASTROINTESTINAL: denies nausea/diarrhea/constipation, +fecal incontinence GENITOURINARY: denies dysuria MUSCULOSKELETAL: bilat LE weakness, +low back pain NEUROLOGICAL: peripheral neuropathy HEMATOLOGICAL: +anemia SKIN: + external hemorrhoids, left eye ecchymosis PSYCHIATRIC: Unremarkable All other review of systems found to be negative. PHYSICAL EXAMINATION: VITAL SIGNS: Please see below. GENERAL: Pleasant and cooperative. No acute distress. HEENT: PERRL. Extraocular movements intact. Clear conjunctiva, left periorbital ecchymosis CARDIOVASCULAR: Regular rate and rhythm. No murmurs, rubs, or gallops, + pacemaker LUNGS: Clear to auscultation bilaterally. No wheezes. No rhonchi ABDOMEN: Soft, nontender, nondistended. Positive bowel sounds. Normal active bowel sounds, +diastasis NEUROLOGICAL: Alert and oriented times three. Cranial nerves II through XII grossly intact. Sensation diminished in stocking pattern bilat LE and in sacral region (-) Clonus, negative Babinski no tremor/cogwheel rigidity noted EXTREMITIES:5\\5 strength bilateral upper extremities. 4\\5 strength right lower extremity. 4/5 strength in left lower extremity. (-) Homans bilat SKIN: left brisa-orbital ecchymosis, +external hemorrhoids, no sacral ulcers ASSESSMENT:84-year-old F with past medical history of lumbar stenosis with saddle region paresthesias who presents status post recurrent falls with UTI PLAN: 1. Rehab: PT- strengthen LE, improve balance, preserve LE ROM -OT- strengthen UE, optimize fine motor skills for ADL managements, preserve UE ROM -right foot drop- trial of AFO successful, will consult staff anesthetist 2. Neuro: spinal stenosis with LE weakness concerning for neurogenic claudica tion- will obtain X-rays and CT scan while on ARU to rule out instability and an ortho consult to discuss possible interventions, patient neurologically stable now, however clearly has weakness with neurogenic bladder and bowel -Lumbar x-ray with flexion/extension, "Scoliosis and diffuse degenerative spondylosis. No instability is appreciated. A grade 1 degenerative L3-4 spondylolisthesis is seen." and CT lumbar spine, "Severe central canal stenosis at L3-4 as above with significant bilateral neural foraminal impingement. There are other levels of central canal stenosis and neural foraminal narrowing as noted above. Findings are felt to be morphologically unchanged from the November 25, 2018 prior study."- given stability of listhesis will defer surgical consult and will refer on discharge 3. Cardiac: pmh Afib with PM, c/u amiodarone and beta-daryl, on Xarelto -HTN- c/u home meds, medicine consulted to assist in management -HLD- statin -recent ECHO showing grade 2 diastolic dysfunction, will fluid restrict and monitor for fluid overload during rehab course 4. Endo: pmh DM, continue Januvia, will check FS and provide ISS -recent labs concerning for subclinical hyperthyroidism- will need endocrine f/u upon discharge 5. DVT ppx: Xarelto 6. GI ppx: c/u omeprazole and sucralfate 7. Heme: anemia- f/u FOBT, patient with known hemorrhoids, Anusol ordered, monitor H/H, if Hgb drops below 8 will transfuse 8. Pain: c/u gabapentin, Tylenol, and oxycodone -patient can use own Aspercream 9. Skin: monitor for skin breakdown 10. : c/u course of Cefuroxime, voiding well 11. Dispo: TBD Allergies Coded Allergies: pramipexole (Verified Allergy, Intermediate, EXTREME DROWSINESS, INVOLUNTARY MUSC. MOVEMENT, WEAKNESS, 02/22/19) AND CONFUSION Estrogens (Verified Allergy, Unknown, RASH, 02/22/19) Sulfa (Sulfonamide Antibiotics) (Verified Allergy, Unknown, TOLD TO AVOID INTERACTIONS WHILE TAKING METHOTREXATE, 02/22/19) clindamycin (Verified Allergy, Unknown, RASH, 02/22/19) clobetasol (Verified Allergy, Unknown, RASH, 02/22/19) imiquimod (Verified Allergy, Unknown, RASH, 02/22/19) tramadol (Verified Allergy, Unknown, NAUSEA, VOMITING, DIZZINESS, 02/22/19) Vital Signs Vital Signs Date Time Temp Pulse Resp B/P (MAP) Pulse Ox O2 Delivery O2 Flow Rate FiO2 02/27/19 09:00 91 105/52 02/27/19 07:30 20 02/27/19 06:00 97.7 97 Laboratory Data Labs 24H Laboratory Tests 2 02/26/19 16:44: Bedside Glucose (Misc Panel) 114H 02/26/19 20:07: Bedside Glucose (Misc Panel) 123H 02/27/19 05:48: Bedside Glucose (Misc Panel) 139H 02/27/19 11:35: Bedside Glucose (Misc Panel) 109 Current Medications Current Medications Current Medications Acetaminophen (Tylenol Tab) 500 mg TID@0900,1300,1700 PO Last administered on 02/27/19 08:59; Start 02/26/19 at 09:00 Acetaminophen (Tylenol Tab) 1,000 mg QHS PO Last administered on 02/26/19 21:42; Start 02/25/19 at 21:00 Al Hydrox/Mg Hydrox/Simethicone (Mylanta) 30 ml Q4HP PRN PO DYSPEPSIA; Start 02/25/19 at 17:30 Amiodarone HCl (Pacerone, Cordarone) 200 mg DAILY PO Last administered on 02/27/19 09:00; Start 02/26/19 at 09:00 Ascorbic Acid (Vitamin C) 500 mg DAILY PO Last administered on 02/27/19 08:59; Start 02/26/19 at 09:00 Bacitracin/ Polymyxin B Sulfate (Polysporin Top Oint) apply to toe ulcers and co... DAILY TOP Last administered on 02/27/19at 09:03; Start 02/26/19 at 09:00 Bisacodyl (Dulcolax Suppository) 10 mg DAILYPRN PRN ME CONSTIPATION; Start 02/25/19 at 17:30 Calcium/Vitamin D (Oscal D) 1,000 mg DAILY PO Last administered on 02/27/19 08:59; Start 02/26/19 at 09:00 Carbidopa/Levodopa (Sinemet 25/100) 1 tab TID PO Last administered on 02/27/19at 09:00; Start 02/25/19 at 21:00 Cefuroxime Axetil (Ceftin) 250 mg BID PO Last administered on 02/27/19at 09:00; Start 02/25/19 at 21:00; Stop 03/04/19 at 09:01 Dextrose (Dextrose 50%) 25 ml ASDIRECTED PRN IV SEE LABEL COMMENTS; Start 02/25/19 at 17:30 Docusate Sodium (Colace) 100 mg BID PO Last administered on 02/27/19at 08:59; Start 02/25/19 at 21:00 Duloxetine HCl (Cymbalta) 60 mg QHS PO Last administered on 02/26/19at 21:40; Start 02/25/19 at 21:00 Folic Acid (Folic Acid) 1 mg DAILY PO Last administered on 02/27/19at 09:00; Start 02/26/19 at 09:00 Furosemide (Lasix) 40 mg DAILY PO Last administered on 02/27/19at 09:00; Start 02/26/19 at 09:00 Gabapentin (Neurontin) 300 mg TID PO Last administered on 02/27/19at 08:59; Start 02/25/19 at 21:00 Glucagon (Glucagon) 1 mg ASDIRECTED PRN SC SEE LABEL COMMENTS; Start 02/25/19 at 17:30 Glucose (Glucose) 16 GM ASDIRECTED PRN PO SEE LABEL COMMENTS; Start 02/25/19 at 17:30 Hydrocortisone Acetate (Anusol Hc Supp) 25 mg BID ME Last administered on 02/26/19at 21:40; Start 02/25/19 at 21:00; Stop 02/27/19 at 10:48; Status DC Hydrocortisone Acetate (Anusol Hc Supp) 25 mg QHS ME ; Start 02/27/19 at 21:00 Insulin Human Lispro (HumaLOG INSULIN) SEE PROTOCOL TABLE AC SC Last administered on 02/27/19at 09:01; Start 02/25/19 at 17:30 Insulin Human Lispro (HumaLOG INSULIN) SEE PROTOCOL TABLE QHS SC ; Start 02/25/19 at 21:00 Irbesartan (Avapro) 75 mg DAILY PO Last administered on 02/26/19at 09:10; Start 02/26/19 at 09:00 Methotrexate (Folex) 7.5 mg Th@0900 PO Last administered on 02/26/19at 09:08; Start 02/26/19 at 09:00 Miscellaneous (Unresolved Clarification Entry) SEE LABEL COMMENTS DAILY XX ; Start 02/25/19 at 09:00; Status Cancel Nebivolol (Bystolic) 2.5 mg DAILY PO Last administered on 02/26/19 09:10; Start 02/26/19 at 09:00 Omeprazole (PriLOSEC) 40 mg DAILY PO Last administered on 02/27/19 08:59; Start 02/26/19 at 09:00 Oxycodone HCl (Roxicodone, Oxyir) 5 mg Q6HP PRN PO PAIN Last administered on 02/27/19 06:43; Start 02/25/19 at 17:30 Patient Own Medication (Patient'S Own Med) Lumigan 0.01% INSTIL... QHS OU Last administered on 02/26/19 21:43; Start 02/25/19 at 21:00 Pravastatin Sodium (Pravachol) 10 mg QHS PO Last administered on 02/26/19 21:40; Start 02/25/19 at 21:00 Rivaroxaban (Xarelto) 20 mg QPM@1800 PO Last administered on 02/26/19 18:08; Start 02/26/19 at 18:00 Senna (Senokot) 1 tab QHS PO Last administered on 02/25/19 21:24; Start 02/25/19 at 21:00 Sitagliptin Phosphate (Januvia) 100 mg DAILY PO Last administered on 02/27/19 08:59; Start 02/26/19 at 09:00 Spironolactone (Aldactone) 25 mg DAILY PO Last administered on 02/26/19 09:04; Start 02/26/19 at 09:00 Sucralfate (Carafate) 1 gm AC PO Last administered on 02/27/19 08:59; Start 02/25/19 at 17:30 Vitamin D (Vitamin D) 3,000 units DAILY PO Last administered on 02/27/19 08:59; Start 02/26/19 at 09:00 Zinc Oxide (Boudreauxs Butt Paste) sacrum BID TOP Last administered on 02/27/19 09:02; Start 02/25/19 at 21:00 VANDANA SEGUNDO MD Feb 27, 2019 11:39
[2019-02-27] MEDS: RIVAROXABAN 20 MG TAB (XARELTO) PO SCH (17:28)
[2019-02-27 20:00] VITALS: BP 115/60
[2019-02-27] MEDS: PRAVASTATIN 10 MG TAB PO SCH (20:38)
[2019-02-27] MEDS: SENNA 8.6 MG TAB (SENOKOT) PO SCH (20:39)
[2019-02-27] MEDS: DULoxetine 30 MG CAP (CYMBALTA) PO SCH (20:39)
[2019-02-27] MEDS: LUMIGAN 0.01% OU SCH (20:41)
[2019-02-28] MEDS: oxyCODONE 5MG TAB PO PRN (01:05)
[2019-02-28 06:00] VITALS: BP 100/52
[2019-02-28] MEDS: HumaLOG INSULIN (NovoLOG) PER UNIT SC SCH ×4 (08:36→20:26)
[2019-02-28] MEDS: OMEPRAZOLE 20 MG CAP PO SCH (08:36)
[2019-02-28] MEDS: DOCUSATE SODIUM 100 MG CAP PO SCH ×2 (08:36→20:21)
[2019-02-28] MEDS: SITagliptin 50 MG TAB (JANUVIA) PO SCH (08:36)
[2019-02-28] MEDS: FUROSEMIDE 40 MG TAB PO SCH (08:36)
[2019-02-28] MEDS: VITAMIN D 1,000 INTERNATIONAL UNITS TABLET PO SCH (08:36)
[2019-02-28] MEDS: ACETAMINOPHEN 500 MG TAB PO SCH ×4 (08:36→20:26)
[2019-02-28] MEDS: ASCORBIC ACID 500 MG TAB PO SCH (08:37)
[2019-02-28] MEDS: NEBIVOLOL 5 MG TAB (BYSTOLIC) PO SCH (08:37)
[2019-02-28] MEDS: GABAPENTIN 300 MG CAP PO SCH ×3 (08:37→20:21)
[2019-02-28] MEDS: SUCRALFATE 1 GM TAB PO SCH ×3 (08:37→16:58)
[2019-02-28] MEDS: CEFUROXIME 250 MG TAB PO SCH ×2 (08:37→20:21)
[2019-02-28] MEDS: FOLIC ACID 1 MG TAB PO SCH (08:37)
[2019-02-28] MEDS: CALCIUM/VITAMIN D 500 MG TAB PO SCH (08:37)
[2019-02-28] MEDS: SINEMET 25-100 MG TAB PO SCH ×3 (08:37→20:21)
[2019-02-28] MEDS: SPIRONOLACTONE 25 MG TAB PO SCH (08:37)
[2019-02-28] MEDS: AMIODARONE 200 MG TAB (PACERONE) PO SCH (08:37)
[2019-02-28] MEDS: IRBESARTAN 150 MG TAB PO SCH (08:38)
[2019-02-28] MEDS: BOUDREAUX'S BUTT PASTE TOP SCH ×2 (08:38→20:27)
[2019-02-28] MEDS: POLYSPORIN TOPICAL OINTMENT 15GM TOP SCH (08:38)
--- NOTE | 2019-02-28 12:18 | IPNPDOC ---
Date Seen The patient was seen on 02/28/19. Progress Note SUBJECTIVE: 84 Y female, history of spinal stenosis and DM T2 current in rehab and medicine team is following she is doing well no events overnight Review of Systems no fever no chills no chest pain no abdominal pain no diarrhea OBJECTIVE PHYSICAL EXAMINATION: VITAL SIGNS: Please see below. GENERAL: AA OX3, sitting in the chair and comfortable; obese HEENT: +ecchymosis in left eye CARDIOVASCULAR: S1S2 regular no murmur RESPIRATORY: clear, no wheezing, no rales ABDOMINAL: soft, BS +, non tender EXTREMITIES: no edema NEUROLOGICAL: non focal PSYCHOLOGICAL: no agitation LABORATORY DATA, IMAGING STUDIES, MICROBIOLOGY: Please see below. ASSESSMENT AND PLAN: 1. Severe spinal stenosis continue PT 2. UTI Ux+ strep B, on Ceftin 3. NIDDM, on ISS 4. AFIB paroxysmal, NSR now, on Xarelto 5. Medicine team will follow VS, I&O, 24H, Fishbone Vital Signs/I&O Vital Signs Date Time Temp Pulse Resp B/P (MAP) Pulse Ox O2 Delivery O2 Flow Rate FiO2 02/28/19 08:37 113 126/65 02/28/19 06:00 97.9 18 94 I&O- Last 24 Hours up to 6 AM 02/28/19 05:59 Intake Total 1020 ml Output Total 550 ml Balance 470 ml Laboratory Data 24H LABS Laboratory Tests 2 02/27/19 16:52: Bedside Glucose (Misc Panel) 123H 02/27/19 20:39: Bedside Glucose (Misc Panel) 158H 02/28/19 06:18: Bedside Glucose (Misc Panel) 114H 02/28/19 11:35: Bedside Glucose (Misc Panel) 104 ARPIT SHEPHERD MD Feb 28, 2019 12:18
[2019-02-28 14:00] VITALS: BP 108/62
[2019-02-28] MEDS: RIVAROXABAN 20 MG TAB (XARELTO) PO SCH (16:58)
[2019-02-28 19:59] VITALS: BP 105/55
[2019-02-28] MEDS: ANUSOL HC 25MG SUPP PR SCH (20:21)
[2019-02-28] MEDS: DULoxetine 30 MG CAP (CYMBALTA) PO SCH (20:21)
[2019-02-28] MEDS: SENNA 8.6 MG TAB (SENOKOT) PO SCH (20:21)
[2019-02-28] MEDS: PRAVASTATIN 10 MG TAB PO SCH (20:21)
[2019-02-28] MEDS: LUMIGAN 0.01% OU SCH (20:28)
[2019-03-01] MEDS: oxyCODONE 5MG TAB PO PRN (00:15)
[2019-03-01] MEDS: HumaLOG INSULIN (NovoLOG) PER UNIT SC SCH ×4 (07:28→21:00)
[2019-03-01] MEDS: CALCIUM/VITAMIN D 500 MG TAB PO SCH (07:38)
[2019-03-01] MEDS: SITagliptin 50 MG TAB (JANUVIA) PO SCH (07:39)
[2019-03-01] MEDS: VITAMIN D 1,000 INTERNATIONAL UNITS TABLET PO SCH (07:39)
[2019-03-01] MEDS: CEFUROXIME 250 MG TAB PO SCH (07:39)
[2019-03-01] MEDS: SUCRALFATE 1 GM TAB PO SCH ×3 (07:40→17:30)
[2019-03-01] MEDS: AMIODARONE 200 MG TAB (PACERONE) PO SCH (07:40)
[2019-03-01] MEDS: ASCORBIC ACID 500 MG TAB PO SCH (07:40)
[2019-03-01] MEDS: OMEPRAZOLE 20 MG CAP PO SCH (07:40)
[2019-03-01] MEDS: SINEMET 25-100 MG TAB PO SCH ×3 (07:41→21:16)
[2019-03-01] MEDS: GABAPENTIN 300 MG CAP PO SCH ×3 (07:41→21:17)
[2019-03-01] MEDS: FOLIC ACID 1 MG TAB PO SCH (07:41)
[2019-03-01] MEDS: ACETAMINOPHEN 500 MG TAB PO SCH ×4 (07:41→21:16)
[2019-03-01] MEDS: FUROSEMIDE 40 MG TAB PO SCH (07:41)
[2019-03-01] MEDS: POLYSPORIN TOPICAL OINTMENT 15GM TOP SCH (07:41)
[2019-03-01] MEDS: DOCUSATE SODIUM 100 MG CAP PO SCH ×2 (07:41→21:17)
[2019-03-01] MEDS: BOUDREAUX'S BUTT PASTE TOP SCH ×2 (07:42→21:18)
[2019-03-01] MEDS: IRBESARTAN 150 MG TAB PO SCH (09:00)
[2019-03-01] MEDS: SPIRONOLACTONE 25 MG TAB PO SCH (09:00)
[2019-03-01] MEDS: NEBIVOLOL 5 MG TAB (BYSTOLIC) PO SCH (09:00)
--- NOTE | 2019-03-01 12:07 | IPNPDOC ---
Date Seen The patient was seen on 03/01/19. Progress Note SUBJECTIVE: 84 Y female, history of spinal stenosis and DM T2 current in rehab and medicine team is following she is doing well no events overnight Review of Systems no fever no chills no chest pain no abdominal pain no diarrhea OBJECTIVE PHYSICAL EXAMINATION: VITAL SIGNS: Please see below. GENERAL: AA OX3, sitting in the chair and comfortable; obese HEENT: +ecchymosis in left eye CARDIOVASCULAR: S1S2 regular no murmur RESPIRATORY: clear, no wheezing, no rales ABDOMINAL: soft, BS +, non tender EXTREMITIES: no edema NEUROLOGICAL: non focal PSYCHOLOGICAL: no agitation LABORATORY DATA, IMAGING STUDIES, MICROBIOLOGY: Please see below. ASSESSMENT AND PLAN: 1. Severe spinal stenosis continue PT 2. UTI Ux+ strep B resolved and will d/c Ceftin 3. NIDDM, on ISS 4. AFIB paroxysmal, NSR now, on Xarelto 5. Medicine team will follow VS, I&O, 24H, Fishbone Vital Signs/I&O Vital Signs Date Time Temp Pulse Resp B/P (MAP) Pulse Ox O2 Delivery O2 Flow Rate FiO2 03/01/19 09:00 70 03/01/19 09:00 99/50 03/01/19 04:00 97.2 18 93 I&O- Last 24 Hours up to 6 AM 03/01/19 06:00 Intake Total 1110 ml Output Total 800 ml Balance 310 ml Laboratory Data 24H LABS Laboratory Tests 2 02/28/19 16:39: Bedside Glucose (Misc Panel) 141H 02/28/19 19:47: Bedside Glucose (Misc Panel) 150H 03/01/19 06:03: Bedside Glucose (Misc Panel) 110 ARPIT SHEPHERD MD Mar 01, 2019 12:07
[2019-03-01 14:00] VITALS: BP 105/53
[2019-03-01] MEDS: RIVAROXABAN 20 MG TAB (XARELTO) PO SCH (17:30)
[2019-03-01 20:00] VITALS: BP 112/54
[2019-03-01] MEDS: PRAVASTATIN 10 MG TAB PO SCH (21:15)
[2019-03-01] MEDS: DULoxetine 30 MG CAP (CYMBALTA) PO SCH (21:16)
[2019-03-01] MEDS: SENNA 8.6 MG TAB (SENOKOT) PO SCH (21:16)
[2019-03-01] MEDS: ANUSOL HC 25MG SUPP PR SCH (21:17)
[2019-03-01] MEDS: LUMIGAN 0.01% OU SCH (21:17)
[2019-03-02] MEDS: oxyCODONE 5MG TAB PO PRN ×3 (00:19→22:59)
[2019-03-02 05:49] VITALS: BP 116/58
[2019-03-02 07:19] LABS: BASO % 0.5 % (0.0-1.0); EOS # 0.2 10^3/uL (0.0-0.50); EOS % 2.1 % (0.0-3.0); HEMATOCRIT 28.8 % (36.0-47.0); HEMOGLOBIN 9.1 g/dl (12.0-15.5); LYMPH # 1.2 10^3/uL (1.5-4.5); LYMPH % 15.1 % (24.0-44.0); MEAN CORPUSCULAR HGB CONC 31.6 g/dl (32.0-36.5); MONO # 0.7 10^3/uL (0.0-0.8); MONO % 9.1 % (0.0-5.0); NEUTROPHILS # 5.5 10^3/uL (1.8-7.7); NEUTROPHILS % 72.8 % (36.0-66.0); PLATELET COUNT, AUTOMATED 320 10^3/uL (150-450); RED BLOOD COUNT 2.94 10^6/uL (4.00-5.40); WHITE BLOOD COUNT 7.6 10^3/uL (4.0-10.0)
[2019-03-02 07:40] LABS: CALCIUM LEVEL 9.5 MG/DL (8.8-10.2); CREATININE FOR GFR 1.44 MG/DL (0.55-1.30); GLOMERULAR FILTRATION RATE 37.1 (>32); POTASSIUM SERUM 4.1 MEQ/L (3.5-5.1)
[2019-03-02] MEDS: HumaLOG INSULIN (NovoLOG) PER UNIT SC SCH ×4 (08:38→21:00)
[2019-03-02] MEDS: SINEMET 25-100 MG TAB PO SCH ×3 (08:38→21:21)
[2019-03-02] MEDS: GABAPENTIN 300 MG CAP PO SCH ×3 (08:38→21:21)
[2019-03-02] MEDS: ASCORBIC ACID 500 MG TAB PO SCH (08:38)
[2019-03-02] MEDS: CALCIUM/VITAMIN D 500 MG TAB PO SCH (08:39)
[2019-03-02] MEDS: VITAMIN D 1,000 INTERNATIONAL UNITS TABLET PO SCH (08:39)
[2019-03-02] MEDS: AMIODARONE 200 MG TAB (PACERONE) PO SCH (08:39)
[2019-03-02] MEDS: OMEPRAZOLE 20 MG CAP PO SCH (08:39)
[2019-03-02] MEDS: SUCRALFATE 1 GM TAB PO SCH ×3 (08:39→17:21)
[2019-03-02] MEDS: FUROSEMIDE 40 MG TAB PO SCH (08:40)
[2019-03-02] MEDS: FOLIC ACID 1 MG TAB PO SCH (08:40)
[2019-03-02] MEDS: ACETAMINOPHEN 500 MG TAB PO SCH ×4 (08:40→21:21)
[2019-03-02] MEDS: SITagliptin 50 MG TAB (JANUVIA) PO SCH (08:40)
[2019-03-02] MEDS: NEBIVOLOL 5 MG TAB (BYSTOLIC) PO SCH (08:41)
[2019-03-02] MEDS: DOCUSATE SODIUM 100 MG CAP PO SCH ×2 (08:41→21:00)
[2019-03-02] MEDS: IRBESARTAN 150 MG TAB PO SCH (08:44)
[2019-03-02] MEDS: SPIRONOLACTONE 25 MG TAB PO SCH (08:44)
[2019-03-02] MEDS: POLYSPORIN TOPICAL OINTMENT 15GM TOP SCH (08:45)
[2019-03-02] MEDS: BOUDREAUX'S BUTT PASTE TOP SCH ×2 (08:45→21:22)
--- NOTE | 2019-03-02 10:07 | IPNPDOC ---
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 REVIEW OF SYSTEMS: The following is a completed review of systems and has been reviewed. Review of systems otherwise unremarkable. PAIN: + low back pain radiating down L>R leg EYES: No recent vision changes EARS, NOSE, & THROAT: denies dysphagia CARDIOVASCULAR: denies chest pain or palpitations PULMONARY: Negative. Denies shortness of breath GASTROINTESTINAL: denies nausea/diarrhea/constipation, +fecal incontinence GENITOURINARY: denies dysuria MUSCULOSKELETAL: bilat LE weakness, +low back pain NEUROLOGICAL: peripheral neuropathy HEMATOLOGICAL: +anemia SKIN: + external hemorrhoids, left eye ecchymosis PSYCHIATRIC: Unremarkable All other review of systems found to be negative. PHYSICAL EXAMINATION: VITAL SIGNS: Please see below. GENERAL: Pleasant and cooperative. No acute distress. HEENT: PERRL. Extraocular movements intact. Clear conjunctiva, left periorbital ecchymosis CARDIOVASCULAR: Regular rate and rhythm. No murmurs, rubs, or gallops, + pacemaker LUNGS: Clear to auscultation bilaterally. No wheezes. No rhonchi ABDOMEN: Soft, nontender, nondistended. Positive bowel sounds. Normal active bowel sounds, +diastasis NEUROLOGICAL: Alert and oriented times three. Cranial nerves II through XII grossly intact. Sensation diminished in stocking pattern bilat LE and in sacral region (-) Clonus, negative Babinski no tremor/cogwheel rigidity noted EXTREMITIES:5\\5 strength bilateral upper extremities. 4\\5 strength right lower extremity. 4/5 strength in left lower extremity. (-) Homans bilat SKIN: left brisa-orbital ecchymosis, +external hemorrhoids, no sacral ulcers ASSESSMENT:84-year-old F with past medical history of lumbar stenosis with saddle region paresthesias who presents status post recurrent falls with UTI PLAN: 1. 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 Neuro: spinal stenosis with LE weakness concerning for neurogenic claudication- will obtain X-rays and CT scan while on ARU to rule out instability and an ortho consult to discuss possible interventions, patient neurologically stable now, however clearly has weakness with neurogenic bladder and bowel -Lumbar x-ray with flexion/extension, "Scoliosis and diffuse degenerative spond ylosis. No instability is appreciated. A grade 1 degenerative L3-4 spondylolisthesis is seen." and CT lumbar spine, "Severe central canal stenosis at L3-4 as above with significant bilateral neural foraminal impingement. There are other levels of central canal stenosis and neural foraminal narrowing as noted above. Findings are felt to be morphologically unchanged from the November 25, 2018 prior study."- given stability of listhesis will defer surgical consult and will refer on discharge 3. Cardiac: pmh Afib with PM, c/u amiodarone and beta-daryl, on Xarelto -HTN- c/u home meds, medicine consulted to assist in management -HLD- statin -recent ECHO showing grade 2 diastolic dysfunction, will fluid restrict and monitor for fluid overload during rehab course 4. Endo: pmh DM, continue Januvia, will check FS and provide ISS -recent labs concerning for subclinical hyperthyroidism- will need endocrine f/u upon discharge 5. DVT ppx: Xarelto 6. GI ppx: c/u omeprazole and sucralfate 7. Heme: anemia- f/u FOBT, patient with known hemorrhoids, Anusol ordered, monitor H/H, if Hgb drops below 8 will transfuse 8. Pain: c/u gabapentin, Tylenol, and oxycodone -patient can use own Aspercream 9. Skin: monitor for skin breakdown 10. : s/p course of Cefuroxime for UTI, voiding well 11. Dispo: TBD Allergies Coded Allergies: pramipexole (Verified Allergy, Intermediate, EXTREME DROWSINESS, INVOLUNTARY MUSC. MOVEMENT, WEAKNESS, 02/22/19) AND CONFUSION Estrogens (Verified Allergy, Unknown, RASH, 02/22/19) Sulfa (Sulfonamide Antibiotics) (Verified Allergy, Unknown, TOLD TO AVOID INTERACTIONS WHILE TAKING METHOTREXATE, 02/22/19) clindamycin (Verified Allergy, Unknown, RASH, 02/22/19) clobetasol (Verified Allergy, Unknown, RASH, 02/22/19) imiquimod (Verified Allergy, Unknown, RASH, 02/22/19) tramadol (Verified Allergy, Unknown, NAUSEA, VOMITING, DIZZINESS, 02/22/19) Vital Signs Vital Signs Date Time Temp Pulse Resp B/P (MAP) Pulse Ox O2 Delivery O2 Flow Rate FiO2 03/02/19 08:41 69 113/53 03/02/19 06:40 16 03/02/19 05:49 97.9 99 Laboratory Data CBC/BMP Laboratory Tests 03/02/19 06:53 Red Blood Count 2.94 L, Mean Corpuscular Volume 98.0 H, Mean Corpuscular Hemoglobin 31.0, Mean Corpuscular Hemoglobin Concent 31.6 L, Red Cell Distribution Width 15.0 H, Neutrophils (%) (Auto) 72.8 H, Lymphocytes (%) (Auto) 15.1 L, Monocytes (%) (Auto) 9.1 H, Eosinophils (%) (Auto) 2.1, Basophils (%) (Auto) 0.5, Neutrophils # (Auto) 5.5, Lymphocytes # (Auto) 1.2 L, Monocytes # (Auto) 0.7, Eosinophils # (Auto) 0.2, Basophils # (Auto) 0.0, Calcium Level 9.5 Labs 24H Laboratory Tests 2 03/01/19 12:07: Bedside Glucose (Misc Panel) 109 03/01/19 16:46: Bedside Glucose (Misc Panel) 135H 03/01/19 20:16: Bedside Glucose (Misc Panel) 109 03/02/19 06:25: Bedside Glucose (Misc Panel) 101 03/02/19 06:53: Immature Granulocyte % (Auto) 0.4, White Blood Count 7.6, Red Blood Count 2.94L, Hemoglobin 9.1L, Hematocrit 28.8L, Mean Corpuscular Volume 98.0H, Mean Corpuscular Hemoglobin 31.0, Mean Corpuscular Hemoglobin Concent 31.6L, Red Cell Distribution Width 15.0H, Platelet Count 320, Neutrophils (%) (Auto) 72.8H, Lymphocytes (%) (Auto) 15.1L, Monocytes (%) (Auto) 9.1H, Eosinophils (%) (Auto) 2.1, Basophils (%) (Auto) 0.5, Neutrophils # (Auto) 5.5, Lymphocytes # (Auto) 1.2L, Monocytes # (Auto) 0.7, Eosinophils # (Auto) 0.2, Basophils # (Auto) 0.0, Nucleated Red Blood Cells % (auto) 0.0, Anion Gap 7L, Glomerular Filtration Rate 37.1, Blood Urea Nitrogen 34H, Creatinine 1.44H, Sodium Level 138, Potassium Level 4.1, Chloride Level 103, Carbon Dioxide Level 28, Calcium Level 9.5 Current Medications Current Medications Current Medications Acetaminophen (Tylenol Tab) 500 mg TID@0900,1300,1700 PO Last administered on 03/02/19 08:40; Start 02/26/19 at 09:00 Acetaminophen (Tylenol Tab) 1,000 mg QHS PO Last administered on 03/01/19 21:16; Start 02/25/19 at 21:00 Al Hydrox/Mg Hydrox/Simethicone (Mylanta) 30 ml Q4HP PRN PO DYSPEPSIA; Start 02/25/19 at 17:30 Amiodarone HCl (Pacerone, Cordarone) 200 mg DAILY PO Last administered on 03/02/19 08:39; Start 02/26/19 at 09:00 Ascorbic Acid (Vitamin C) 500 mg DAILY PO Last administered on 03/02/19 08:38; Start 02/26/19 at 09:00 Bacitracin/ Polymyxin B Sulfate (Polysporin Top Oint) apply to toe ulcers and co... DAILY TOP Last administered on 03/02/19 08:45; Start 02/26/19 at 09:00 Bisacodyl (Dulcolax Suppository) 10 mg DAILYPRN PRN [place] CONSTIPATION; Start 02/25/19 at 17:30 Calcium/Vitamin D (Oscal D) 1,000 mg DAILY PO Last administered on 03/02/19 08:39; Start 02/26/19 at 09:00 Carbidopa/Levodopa (Sinemet 25/100) 1 tab TID PO Last administered on 03/02/19 08:38; Start 02/25/19 at 21:00 Cefuroxime Axetil (Ceftin) 250 mg BID PO Last administered on 03/01/19 07:39; Start 02/25/19 at 21:00; Stop 03/01/19 at 13:38; Status DC Dextrose (Dextrose 50%) 25 ml ASDIRECTED PRN IV SEE LABEL COMMENTS; Start 02/25/19 at 17:30 Docusate Sodium (Colace) 100 mg BID PO Last administered on 03/01/19at 21:17; Start 02/25/19 at 21:00 Duloxetine HCl (Cymbalta) 60 mg QHS PO Last administered on 03/01/19at 21:16; Start 02/25/19 at 21:00 Folic Acid (Folic Acid) 1 mg DAILY PO Last administered on 03/02/19at 08:40; Start 02/26/19 at 09:00 Furosemide (Lasix) 40 mg DAILY PO Last administered on 03/02/19at 08:40; Start 02/26/19 at 09:00 Gabapentin (Neurontin) 300 mg TID PO Last administered on 03/02/19at 08:38; Start 02/25/19 at 21:00 Glucagon (Glucagon) 1 mg ASDIRECTED PRN SC SEE LABEL COMMENTS; Start 02/25/19 at 17:30 Glucose (Glucose) 16 GM ASDIRECTED PRN PO SEE LABEL COMMENTS; Start 02/25/19 at 17:30 Hydrocortisone Acetate (Anusol Hc Supp) 25 mg BID [place] Last administered on 02/26/19at 21:40; Start 02/25/19 at 21:00; Stop 02/27/19 at 10:48; Status DC Hydrocortisone Acetate (Anusol Hc Supp) 25 mg QHS [place] Last administered on 03/01/19at 21:17; Start 02/27/19 at 21:00 Insulin Human Lispro (HumaLOG INSULIN) SEE PROTOCOL TABLE AC SC Last administered on 03/02/19at 08:38; Start 02/25/19 at 17:30 Insulin Human Lispro (HumaLOG INSULIN) SEE PROTOCOL TABLE QHS SC ; Start 02/25/19 at 21:00 Irbesartan (Avapro) 75 mg DAILY PO Last administered on 03/02/19at 08:44; Start 02/26/19 at 09:00 Methotrexate (Folex) 7.5 mg Th@0900 PO Last administered on 02/26/19at 09:08; Start 02/26/19 at 09:00 Miscellaneous (Unresolved Clarification Entry) SEE LABEL COMMENTS DAILY XX ; Start 02/25/19 at 09:00; Status Cancel Nebivolol (Bystolic) 2.5 mg DAILY PO Last administered on 02/28/19 08:37; Start 02/26/19 at 09:00 Omeprazole (PriLOSEC) 40 mg DAILY PO Last administered on 03/02/19 08:39; Start 02/26/19 at 09:00 Oxycodone HCl (Roxicodone, Oxyir) 5 mg Q6HP PRN PO PAIN Last administered on 03/02/19 06:10; Start 02/25/19 at 17:30 Patient Own Medication (Patient'S Own Med) Lumigan 0.01% INSTIL... QHS OU Last administered on 03/01/19 21:17; Start 02/25/19 at 21:00 Pravastatin Sodium (Pravachol) 10 mg QHS PO Last administered on 03/01/19 21:15; Start 02/25/19 at 21:00 Rivaroxaban (Xarelto) 20 mg QPM@1800 PO Last administered on 03/01/19 17:30; Start 02/26/19 at 18:00 Senna (Senokot) 1 tab QHS PO Last administered on 03/01/19 21:16; Start 02/25/19 at 21:00 Sitagliptin Phosphate (Januvia) 100 mg DAILY PO Last administered on 03/02/19 08:40; Start 02/26/19 at 09:00 Spironolactone (Aldactone) 25 mg DAILY PO Last administered on 03/02/19 08:44; Start 02/26/19 at 09:00 Sucralfate (Carafate) 1 gm AC PO Last administered on 03/02/19 08:39; Start 02/25/19 at 17:30 Vitamin D (Vitamin D) 3,000 units DAILY PO Last administered on 03/02/19 08:39; Start 02/26/19 at 09:00 Zinc Oxide (Boudreauxs Butt Paste) sacrum BID TOP Last administered on 03/01/19 21:18; Start 02/25/19 at 21:00 VANDANA SEGUNDO MD Mar 02, 2019 10:07
[2019-03-02 14:00] VITALS: BP 119/56
[2019-03-02] MEDS: RIVAROXABAN 20 MG TAB (XARELTO) PO SCH (17:20)
[2019-03-02 20:00] VITALS: BP 104/58
[2019-03-02] MEDS: SENNA 8.6 MG TAB (SENOKOT) PO SCH (21:00)
[2019-03-02] MEDS: DULoxetine 30 MG CAP (CYMBALTA) PO SCH (21:21)
[2019-03-02] MEDS: PRAVASTATIN 10 MG TAB PO SCH (21:21)
[2019-03-02] MEDS: LUMIGAN 0.01% OU SCH (21:22)
[2019-03-02] MEDS: ANUSOL HC 25MG SUPP PR SCH (21:22)
[2019-03-03 06:00] VITALS: BP 107/55
[2019-03-03] MEDS: FOLIC ACID 1 MG TAB PO SCH (08:14)
[2019-03-03] MEDS: DOCUSATE SODIUM 100 MG CAP PO SCH ×2 (08:14→20:38)
[2019-03-03] MEDS: SUCRALFATE 1 GM TAB PO SCH ×3 (08:14→17:10)
[2019-03-03] MEDS: GABAPENTIN 300 MG CAP PO SCH ×3 (08:14→20:37)
[2019-03-03] MEDS: HumaLOG INSULIN (NovoLOG) PER UNIT SC SCH ×4 (08:15→21:00)
[2019-03-03] MEDS: SITagliptin 50 MG TAB (JANUVIA) PO SCH (08:15)
[2019-03-03] MEDS: ASCORBIC ACID 500 MG TAB PO SCH (08:16)
[2019-03-03] MEDS: CALCIUM/VITAMIN D 500 MG TAB PO SCH (08:16)
[2019-03-03] MEDS: FUROSEMIDE 40 MG TAB PO SCH (08:16)
[2019-03-03] MEDS: VITAMIN D 1,000 INTERNATIONAL UNITS TABLET PO SCH (08:17)
[2019-03-03] MEDS: OMEPRAZOLE 20 MG CAP PO SCH (08:17)
[2019-03-03] MEDS: SINEMET 25-100 MG TAB PO SCH ×3 (08:18→20:38)
[2019-03-03] MEDS: ACETAMINOPHEN 500 MG TAB PO SCH ×4 (08:18→20:38)
[2019-03-03] MEDS: AMIODARONE 200 MG TAB (PACERONE) PO SCH (08:19)
[2019-03-03] MEDS: NEBIVOLOL 5 MG TAB (BYSTOLIC) PO SCH (08:21)
[2019-03-03] MEDS: IRBESARTAN 150 MG TAB PO SCH (08:21)
[2019-03-03] MEDS: BOUDREAUX'S BUTT PASTE TOP SCH ×2 (08:22→20:38)
[2019-03-03] MEDS: POLYSPORIN TOPICAL OINTMENT 15GM TOP SCH (08:22)
[2019-03-03] MEDS: SPIRONOLACTONE 25 MG TAB PO SCH (08:22)
--- NOTE | 2019-03-03 10:18 | IPNPDOC ---
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 REVIEW OF SYSTEMS: The following is a completed review of systems and has been reviewed. Review of systems otherwise unremarkable. PAIN: + low back pain radiating down L>R leg EYES: No recent vision changes EARS, NOSE, & THROAT: denies dysphagia CARDIOVASCULAR: denies chest pain or palpitations PULMONARY: Negative. Denies shortness of breath GASTROINTESTINAL: denies nausea/diarrhea/constipation, +fecal incontinence GENITOURINARY: denies dysuria MUSCULOSKELETAL: bilat LE weakness, +low back pain NEUROLOGICAL: peripheral neuropathy HEMATOLOGICAL: +anemia SKIN: + external hemorrhoids, left eye ecchymosis PSYCHIATRIC: Unremarkable All other review of systems found to be negative. PHYSICAL EXAMINATION: VITAL SIGNS: Please see below. GENERAL: Pleasant and cooperative. No acute distress. HEENT: PERRL. Extraocular movements intact. Clear conjunctiva, left periorbital ecchymosis CARDIOVASCULAR: Regular rate and rhythm. No murmurs, rubs, or gallops, + pacemaker LUNGS: Clear to auscultation bilaterally. No wheezes. No rhonchi ABDOMEN: Soft, nontender, nondistended. Positive bowel sounds. Normal active bowel sounds, +diastasis NEUROLOGICAL: Alert and oriented times three. Cranial nerves II through XII grossly intact. Sensation diminished in stocking pattern bilat LE and in sacral region (-) Clonus, negative Babinski no tremor/cogwheel rigidity noted EXTREMITIES:5\\5 strength bilateral upper extremities. 4\\5 strength right lower extremity. 4/5 strength in left lower extremity. (-) Homans bilat SKIN: left brisa-orbital ecchymosis, +external hemorrhoids, no sacral ulcers ASSESSMENT:84-year-old F with past medical history of lumbar stenosis with saddle region paresthesias who presents status post recurrent falls with UTI PLAN: 1. 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 Neuro: spinal stenosis with LE weakness concerning for neurogenic claudication- will obtain X-rays and CT scan while on ARU to rule out instability and an ortho consult to discuss possible interventions, patient neurologically stable now, however clearly has weakness with neurogenic bladder and bowel -Lumbar x-ray with flexion/extension, "Scoliosis and diffuse degenerative spondylosis. No instability is appreciated. A grade 1 degenerative L3-4 spondylolisthesis is seen." and CT lumbar spine, "Severe central canal stenosis at L3-4 as above with significant bilateral neural foraminal impingement. There are other levels of central canal stenosis and neural foraminal narrowing as noted above. Findings are felt to be morphologically unchanged from the November 25, 2018 prior study."- given stability of listhesis will defer surgical consult and will refer on discharge 3. Cardiac: pmh Afib with PM, c/u amiodarone and beta-daryl, on Xarelto -HTN- c/u home meds, medicine consulted to assist in management -HLD- statin -recent ECHO showing grade 2 diastolic dysfunction, will fluid restrict and monitor for fluid overload during rehab course 4. Endo: pmh DM, continue Januvia, will check FS and provide ISS -recent labs concerning for subclinical hyperthyroidism- will need endocrine f/u upon discharge 5. DVT ppx: Xarelto 6. GI ppx: c/u omeprazole and sucralfate 7. Heme: anemia- f/u FOBT, patient with known hemorrhoids, Anusol ordered, monitor H/H, if Hgb drops below 8 will transfuse 8. Pain: c/u gabapentin, Tylenol, and oxycodone -patient can use own Aspercream 9. Skin: monitor for skin breakdown 10. : s/p course of Cefuroxime for UTI, voiding well 11. Dispo: TBD Allergies Coded Allergies: pramipexole (Verified Allergy, Intermediate, EXTREME DROWSINESS, INVOLUNTARY MUSC. MOVEMENT, WEAKNESS, 02/22/19) AND CONFUSION Estrogens (Verified Allergy, Unknown, RASH, 02/22/19) Sulfa (Sulfonamide Antibiotics) (Verified Allergy, Unknown, TOLD TO AVOID INTERACTIONS WHILE TAKING METHOTREXATE, 02/22/19) clindamycin (Verified Allergy, Unknown, RASH, 02/22/19) clobetasol (Verified Allergy, Unknown, RASH, 02/22/19) imiquimod (Verified Allergy, Unknown, RASH, 02/22/19) tramadol (Verified Allergy, Unknown, NAUSEA, VOMITING, DIZZINESS, 02/22/19) Vital Signs Vital Signs Date Time Temp Pulse Resp B/P (MAP) Pulse Ox O2 Delivery O2 Flow Rate FiO2 03/03/19 08:21 69 107/55 03/03/19 06:00 97.0 16 96 Laboratory Data Labs 24H Laboratory Tests 2 03/02/19 12:11: Bedside Glucose (Misc Panel) 94 03/02/19 16:33: Bedside Glucose (Misc Panel) 127H 03/02/19 20:04: Bedside Glucose (Misc Panel) 133H 03/03/19 05:57: Bedside Glucose (Misc Panel) 122H Current Medications Current Medications Current Medications Acetaminophen (Tylenol Tab) 500 mg TID@0900,1300,1700 PO Last administered on 03/03/19 08:18; Start 02/26/19 at 09:00 Acetaminophen (Tylenol Tab) 1,000 mg QHS PO Last administered on 03/02/19at 21:21; Start 02/25/19 at 21:00 Al Hydrox/Mg Hydrox/Simethicone (Mylanta) 30 ml Q4HP PRN PO DYSPEPSIA; Start 02/25/19 at 17:30 Amiodarone HCl (Pacerone, Cordarone) 200 mg DAILY PO Last administered on 03/03/19 08:19; Start 02/26/19 at 09:00 Ascorbic Acid (Vitamin C) 500 mg DAILY PO Last administered on 03/03/19at 08:16; Start 02/26/19 at 09:00 Bacitracin/ Polymyxin B Sulfate (Polysporin Top Oint) apply to toe ulcers and co... DAILY TOP Last administered on 03/03/19at 08:22; Start 02/26/19 at 09:00 Bisacodyl (Dulcolax Suppository) 10 mg DAILYPRN PRN [place] CONSTIPATION; Start 02/25/19 at 17:30 Calcium/Vitamin D (Oscal D) 1,000 mg DAILY PO Last administered on 03/03/19at 08:16; Start 02/26/19 at 09:00 Carbidopa/Levodopa (Sinemet 25/100) 1 tab TID PO Last administered on 03/03/19at 08:18; Start 02/25/19 at 21:00 Cefuroxime Axetil (Ceftin) 250 mg BID PO Last administered on 03/01/19at 07:39; Start 02/25/19 at 21:00; Stop 03/01/19 at 13:38; Status DC Dextrose (Dextrose 50%) 25 ml ASDIRECTED PRN IV SEE LABEL COMMENTS; Start 02/25/19 at 17:30 Docusate Sodium (Colace) 100 mg BID PO Last administered on 03/03/19at 08:14; Start 02/25/19 at 21:00 Duloxetine HCl (Cymbalta) 60 mg QHS PO Last administered on 03/02/19at 21:21; Start 02/25/19 at 21:00 Folic Acid (Folic Acid) 1 mg DAILY PO Last administered on 03/03/19at 08:14; Start 02/26/19 at 09:00 Furosemide (Lasix) 40 mg DAILY PO Last administered on 03/03/19at 08:16; Start 02/26/19 at 09:00 Gabapentin (Neurontin) 300 mg TID PO Last administered on 03/03/19at 08:14; Start 02/25/19 at 21:00 Glucagon (Glucagon) 1 mg ASDIRECTED PRN SC SEE LABEL COMMENTS; Start 02/25/19 at 17:30 Glucose (Glucose) 16 GM ASDIRECTED PRN PO SEE LABEL COMMENTS; Start 02/25/19 at 17:30 Hydrocortisone Acetate (Anusol Hc Supp) 25 mg BID [place] Last administered on 02/26/19at 21:40; Start 02/25/19 at 21:00; Stop 02/27/19 at 10:48; Status DC Hydrocortisone Acetate (Anusol Hc Supp) 25 mg QHS [place] Last administered on 03/02/19at 21:22; Start 02/27/19 at 21:00 Insulin Human Lispro (HumaLOG INSULIN) SEE PROTOCOL TABLE AC SC Last administered on 03/03/19at 08:15; Start 02/25/19 at 17:30 Insulin Human Lispro (HumaLOG INSULIN) SEE PROTOCOL TABLE QHS SC ; Start 02/25/19 at 21:00 Irbesartan (Avapro) 75 mg DAILY PO Last administered on 03/02/19at 08:44; Start 02/26/19 at 09:00 Methotrexate (Folex) 7.5 mg Th@0900 PO Last administered on 02/26/19at 09:08; Start 02/26/19 at 09:00 Miscellaneous (Unresolved Clarification Entry) SEE LABEL COMMENTS DAILY XX ; Start 02/25/19 at 09:00; Status Cancel Nebivolol (Bystolic) 2.5 mg DAILY PO Last administered on 02/28/19 08:37; Start 02/26/19 at 09:00 Omeprazole (PriLOSEC) 40 mg DAILY PO Last administered on 03/03/19 08:17; Start 02/26/19 at 09:00 Oxycodone HCl (Roxicodone, Oxyir) 5 mg Q6HP PRN PO PAIN Last administered on 03/02/19 22:59; Start 02/25/19 at 17:30 Patient Own Medication (Patient'S Own Med) Lumigan 0.01% INSTIL... QHS OU Last administered on 03/02/19 21:22; Start 02/25/19 at 21:00 Pravastatin Sodium (Pravachol) 10 mg QHS PO Last administered on 03/02/19 21:21; Start 02/25/19 at 21:00 Rivaroxaban (Xarelto) 20 mg QPM@1800 PO Last administered on 03/02/19 17:20; Start 02/26/19 at 18:00 Senna (Senokot) 1 tab QHS PO Last administered on 03/01/19 21:16; Start 02/25/19 at 21:00 Sitagliptin Phosphate (Januvia) 100 mg DAILY PO Last administered on 03/03/19 08:15; Start 02/26/19 at 09:00 Spironolactone (Aldactone) 25 mg DAILY PO Last administered on 03/02/19 08:44; Start 02/26/19 at 09:00 Sucralfate (Carafate) 1 gm AC PO Last administered on 03/03/19 08:14; Start 02/25/19 at 17:30 Vitamin D (Vitamin D) 3,000 units DAILY PO Last administered on 03/03/19 08:17; Start 02/26/19 at 09:00 Zinc Oxide (Boudreauxs Butt Paste) sacrum BID TOP Last administered on 03/03/19 08:22; Start 02/25/19 at 21:00 VANDANA SEGUNDO MD Mar 03, 2019 10:18
[2019-03-03 14:00] VITALS: BP 106/56
[2019-03-03] MEDS: RIVAROXABAN 20 MG TAB (XARELTO) PO SCH (17:10)
[2019-03-03 20:00] VITALS: BP 116/62
[2019-03-03] MEDS: SENNA 8.6 MG TAB (SENOKOT) PO SCH (20:37)
[2019-03-03] MEDS: DULoxetine 30 MG CAP (CYMBALTA) PO SCH (20:37)
[2019-03-03] MEDS: PRAVASTATIN 10 MG TAB PO SCH (20:38)
[2019-03-03] MEDS: ANUSOL HC 25MG SUPP PR SCH (20:38)
[2019-03-03] MEDS: LUMIGAN 0.01% OU SCH (20:38)
[2019-03-04] MEDS: oxyCODONE 5MG TAB PO PRN (01:44)
[2019-03-04 06:00] VITALS: BP 118/60
[2019-03-04] MEDS: FOLIC ACID 1 MG TAB PO SCH (08:54)
[2019-03-04] MEDS: ASCORBIC ACID 500 MG TAB PO SCH (08:54)
[2019-03-04] MEDS: OMEPRAZOLE 20 MG CAP PO SCH (08:54)
[2019-03-04] MEDS: HumaLOG INSULIN (NovoLOG) PER UNIT SC SCH (08:54)
[2019-03-04] MEDS: SINEMET 25-100 MG TAB PO SCH (08:54)
[2019-03-04] MEDS: ACETAMINOPHEN 500 MG TAB PO SCH (08:54)
[2019-03-04] MEDS: CALCIUM/VITAMIN D 500 MG TAB PO SCH (08:54)
[2019-03-04] MEDS: SUCRALFATE 1 GM TAB PO SCH (08:54)
[2019-03-04] MEDS: DOCUSATE SODIUM 100 MG CAP PO SCH (08:54)
[2019-03-04] MEDS: SITagliptin 50 MG TAB (JANUVIA) PO SCH (08:55)
[2019-03-04] MEDS: NEBIVOLOL 5 MG TAB (BYSTOLIC) PO SCH (08:55)
[2019-03-04] MEDS: SPIRONOLACTONE 25 MG TAB PO SCH (08:55)
[2019-03-04 08:56] VITALS: BP 118/60
[2019-03-04] MEDS: VITAMIN D 1,000 INTERNATIONAL UNITS TABLET PO SCH (08:56)
[2019-03-04] MEDS: GABAPENTIN 300 MG CAP PO SCH (08:56)
[2019-03-04] MEDS: FUROSEMIDE 40 MG TAB PO SCH (08:56)
[2019-03-04] MEDS: IRBESARTAN 150 MG TAB PO SCH (08:56)
[2019-03-04] MEDS: AMIODARONE 200 MG TAB (PACERONE) PO SCH (08:56)
[2019-03-04] MEDS: POLYSPORIN TOPICAL OINTMENT 15GM TOP SCH (08:57)
[2019-03-04] MEDS: BOUDREAUX'S BUTT PASTE TOP SCH (08:57)
[2019-03-04] MEDS ORDERED: FOLI1TAB11 PO (10:32)
[2019-03-04] MEDS ORDERED: SITA50TAB PO (10:32)
[2019-03-04] MEDS ORDERED: FURO40TA2 PO (10:32)
[2019-03-04] MEDS ORDERED: AVAP150T31 PO (10:32)
[2019-03-04] MEDS ORDERED: OMEP-218 PO (10:32)
[2019-03-04] MEDS ORDERED: XARE20TA PO (10:32)
[2019-03-04] MEDS ORDERED: ACET-683 PO (10:32)
[2019-03-04] MEDS ORDERED: AMIO200T PO (10:32)
[2019-03-04] MEDS ORDERED: GABA-843 PO (10:32)
[2019-03-04] MEDS ORDERED: ALDA25TA2 PO (10:32)
[2019-03-04] MEDS ORDERED: BYST5TAB2 PO (10:32)
[2019-03-04] MEDS ORDERED: CYMB1CAP5 PO (10:32)
[2019-03-04] MEDS ORDERED: ASCO50TA PO (10:32)
[2019-03-04] MEDS ORDERED: CARB25TA9 PO (10:32)
[2019-03-04] MEDS ORDERED: SUCR1TA PO (10:32)
--- NOTE | 2019-03-05 10:52 | PMRDS ---
DATE OF ADMISSION: 02/25/2019 DATE OF DISCHARGE: 03/04/2019 CHIEF COMPLAINT/DISCHARGE DIAGNOSIS: Spinal stenosis with recurrent falls. HISTORY OF PRESENT ILLNESS: An 83-year-old female with past medical history of severe spinal stenosis with saddle region paresthesias, urinary incontinence and constipation and peripheral neuropathy, diabetes, atrial fibrillation, pacemaker, squamous cell skin cancer on methotrexate, who presented to [facility] emergency room on 02/22/2019 with increased urinary frequency and recurrent falls. Her low back pain was noted to be managed by her primary care physician and she reports not having been evaluated by orthopedics or neurosurgery for her lumbar stenosis or paresthesias. Patient was found to have bruising of her left eye persistent lower extremity pain. CT of the head showed "a left frontal soft tissue contusion. No fracture . . . no acute intracranial findings." She was started on antibiotics for a urine culture that grew Streptococcus agalactiae and transitioned from intravenous (IV) to oral cefuroxime. Her home dose of gabapentin was lowered due to her creatinine clearance and she was started on a low dose of Sinemet for clinical symptoms concerning for Parkinson's. Additionally, an ultrasound of her thyroid was ordered for elevated thyroid levels and she was found to have a multinodular thyroid with borderline hyperthyroidism. She also had an echocardiogram on 02/23/2019 showing "preserved overall left ventricular systolic function. Left ventricular ejection fraction of 60% by visual estimation. Paradoxical septal motion. Grade 2 left ventricular (LV) diastolic dysfunction. Normal LV wall thickness." She was evaluated by therapy, found to have impairment in mobility and activities of daily living (ADLs) well below her prior level of function and deemed medically appropriate for discharge to acute rehabilitation unit (ARU). PAST MEDICAL HISTORY: As per history of present illness (HPI). HOSPITAL COURSE: Patient was admitted on a comprehensive physical therapy (PT)/occupational therapy (OT) program. She received 24-hour nursing supervision and weekly team meetings were held to discuss her progress. The patient was fitted for a ankle-foot orthosis (AFO) for her right foot drop. Lumbar x-rays, flexion/extension, were ordered showing grade 1 degenerative L3-L4 spondylolisthesis with no instability. CT lumbar spine showed "severe central canal stenosis at L3-L4 . . . findings felt to be morphologically unchanged from 11/25/2008 prior study." Patient remained neurologically stable throughout her hospital course. She had no significant drop in her hemoglobin or hematocrit despite having a known history of hemorrhoids. She finished up a course of cefuroxime for urinary tract infection (UTI) and was voiding well. She made gains in therapy and was deemed medically and functionally stable to return home on 03/04/2019. DISCHARGE MEDICATIONS: As per discharge instructions. FUNCTIONAL HISTORY: Upon discharge, patient was standby assist for bed to chair, chair to bed transfers and for toilet transfers; modified independent for sit to stand; standby assist for household distances 50 feet and in occupational therapy patient was modified independent for toileting and functional transfers.
== END 2019-03-04 11:50 | disposition home health service (06) | DRG 552 ==
LOC: M PM&R 17:55
PROVIDERS: ADMIT Physical Medicine & Rehabilitation; ATTEND Physical Medicine & Rehabilitation
DX: M48.061 Spinal stenosis, lumbar region without neurogenic claudication (principal); N39.0 Urinary tract infection, site not specified; R29.6 Repeated falls; R32 Unspecified urinary incontinence; K59.00 Constipation, unspecified; E11.42 Type 2 diabetes mellitus with diabetic polyneuropathy; I48.91 Unspecified atrial fibrillation; Z95.0 Presence of cardiac pacemaker; Z85.828 Personal history of other malignant neoplasm of skin; R20.0 Anesthesia of skin; E05.90 Thyrotoxicosis, unspecified without thyrotoxic crisis or storm; E04.2 Nontoxic multinodular goiter; D64.9 Anemia, unspecified; K64.4 Residual hemorrhoidal skin tags; I10 Essential (primary) hypertension; E78.5 Hyperlipidemia, unspecified; Z79.891 Long term (current) use of opiate analgesic; Z79.899 Other long term (current) drug therapy; Z88.8 Allergy status to other drugs, medicaments and biological substances; Z88.2 Allergy status to sulfonamides; Z88.5 Allergy status to narcotic agent; K64.8 Other hemorrhoids; M62.81 Muscle weakness (generalized)

== ENCOUNTER → 2019-03-11 | Outpatient (REF) | payer MEDICARE ==
[~2019-03-11] MED LIST changes: +ACET-683 PO; +ALDA25TA2 PO; +AMIO200T PO; +ASCO50TA PO; +AVAP150T31 PO; +BYST5TAB2 PO; +CYMB1CAP5 PO; +OMEP-218 PO; +SITA50TAB PO
[2019-03-11 19:02] LABS: PERCENT SATURATION 7.7 % (13.2-45.0)
== END ==
LOC: M LAB REF 16:52
PROVIDERS: ATTEND Nurse Practitioner Adult Health
DX: D64.9 Anemia, unspecified (principal)

== ENCOUNTER → 2019-05-01 | Outpatient (REF) | payer MEDICARE | LOC: M LAB REF 12:23 | PROVIDERS: ATTEND Nurse Practitioner Adult Health | DX: N39.0 Urinary tract infection, site not specified (principal); R35.0 Frequency of micturition ==

== ENCOUNTER → 2019-05-15 | Outpatient (CLI) | payer MEDICARE | LOC: M PAIN 10:45 | PROVIDERS: ATTEND Nurse Practitioner Family | DX: M47.817 Spondylosis without myelopathy or radiculopathy, lumbosacral region (principal); I10 Essential (primary) hypertension; E11.9 Type 2 diabetes mellitus without complications; Z79.891 Long term (current) use of opiate analgesic; Z79.899 Other long term (current) drug therapy; Z88.5 Allergy status to narcotic agent; Z88.8 Allergy status to other drugs, medicaments and biological substances ==

== ENCOUNTER → 2019-06-22 | Outpatient (CLI) | payer MEDICARE ==
--- NOTE | 2019-07-07 02:12 | ECWPNPC ---
PATIENT NAME: SOCO FRANKLIN : 1935 GENDER: FEMALE VISIT DATE: 06/22/2019 DISCHARGE DATE: 06/22/19 1154 VISIT LOCKED DATE TIME: PHYSICIAN: ALBERTINA SHANE RESOURCE: ALBERTINA SHANE REASON FOR APPOINTMENT 1. BACK HISTORY OF PRESENT ILLNESS HISTORY OF PRESENT ILLNESS: BEING SEEN ON AN URGEENT BASIS FOR INCREASE IN LBP AND A GENERAL DECLINE IN HER CONDITION.FOLLOWING WITH UROLOGY FOR FREQUENT URINATION AND NEUROLOGY FOR NEWLY DIAGNOSED PARKINSONS DISEASE.FREQUENT URINATION PERSISTS AND SHE IS GETTING UP FREQUENTLY WHICH IS AGGREVATING PAIN.FINDING IT DIFFICULT TO AMBULATE.IN GENERAL MORE WEAK IN LOWER EXTREMITIES.RATING PAIN VAS 7/10. PAIN THE PATIENT DESCRIBES THE PAIN... FALL RISK SCREENING: SCREENING :NO FALLS REPORTED IN THE LAST YEAR CURRENT MEDICATIONS TAKING VITAMIN C 500 MG TABLET CHEWABLE DIRECTED ORALLY DAILY TAKING VITAMIN D 3000 CAPSULE 1 TABLET ORALLY ONCE A DAY TAKING PRILOSEC OTC 20 MG TABLET DELAYED RELEASE 1 TABLET ORALLY ONCE A DAY TAKING JANUVIA 25 MG TABLET 1 TABLET ORALLY ONCE A DAY TAKING CALCIUM 600 + D 600-400 MG-UNIT TABLET 2 TABLETS ORALLY TWICE DAILY TAKING AMIODARONE HCL 200 MG TABLET 1 TABLET ORALLY ONCE A DAY TAKING BYSTOLIC 5 MG TABLET 1 TABLET ORALLY ONCE A DAY TAKING XARELTO 15 MG TABLET 1 TABLET WITH FOOD ORALLY ONCE A DAY TAKING SPIRONOLACTONE 25 MG TABLET 1/2 TABLET ORALLY QD TAKING IRBESARTAN 75 MG TABLET 1 TABLET ORALLY ONCE A DAY TAKING PRAVASTATIN SODIUM 10 MG TABLET 1 TABLET ORALLY ONCE A DAY TAKING LIDOCAINE 5 % OINTMENT 1 APPLICATION TO AFFECTED AREA NEEDED EXTERNALLY FOUR TIMES DAILY TAKING TYLENOL 325 MG TABLET 1 TABLET NEEDED ORALLY EVERY 6 HRS TAKING FUROSEMIDE 40 MG TABLET 1 TABLET ORALLY ONCE A DAY TAKING FIBER - TABLET 1 TAB ORALLY TWICE A DAY TAKING LUMIGAN 0.01 % SOLUTION 1 DROP INTO AFFECTED EYE IN THE EVENING OPHTHALMIC ONCE A DAY TAKING PRAMIPEXOLE DIHYDROCHLORIDE 0.25 MG TABLET 1 TABLET BEFORE BEDTIME ORALLY ONCE A DAY TAKING METHOTREXATE 2.5 MG TABLET 3 TABS ORALLY WEEKLY TAKING FOLIC ACID 1 MG TABLET 1 TABLET ORALLY ONCE A DAY EXCEPT ON SAT TAKING LEVODOPA 42 MG CAPSULE 2 CAPSULES NEEDED INHALATION FIVE TIMES A DAY, NOTES: NOT SURE OF DOSE TAKING GABAPENTIN 400 MG CAPSULE 1 CAPSULE ORALLY THREE TIMES DAILY TAKING CYMBALTA 60 MG CAPSULE DELAYED RELEASE PARTICLES 1 CAPSULE ORALLY ONCE A DAY, NOTES: NIGHT TAKING NORCO 7.5-325 MG TABLET 1 TO 1 1/2 TAB ORALLY Q6H PRN MDD5 TAKING MYREBTRIQ 25 MG TABLET 1 TABLET ORALLY ONCE A DAY TAKING CYMBALTA 30 MG CAPSULE DELAYED RELEASE PARTICLES 1 CAPSULE ORALLY ONCE A DAY, NOTES: MORNING MEDICATION LIST REVIEWED AND RECONCILED WITH THE PATIENT PAST MEDICAL HISTORY HIGH BLOOD PRESSURE HIGH CHOLESTEROL ARTHRITIS DIABETES MALLITUS PSORIASIS CHRONIC DRY EYES SKIN CANCERS (SCC) GLAUCOMA BACK AND LEG PAIN PARKINSONS DISEASE OVERACTIVE BLADDER FOOT DROP ALLERGIES ESTROGENS CONJ SYNTHETIC A: RASH CLOBETASOL PROPIONATE: RASH IMIQUIMOD: RASH CLINDAMYCIN HCL: RASH TRAMADOL: NAUSEA ,VOMITTING AND DIZZINESS PRAMIPEXOLE DIHYDROCHLORIDE: MUSCLE JERKING, URINARY RETENTION SURGICAL HISTORY HYSTERECTOMY BLADDER SURGERY LENS IMPLANT SKIN CANCER EXCISION FRACTURE REPAIR FAMILY HISTORY FATHER: , DIAGNOSED WITH UNSPECIFIED HEART DISEASE MOTHER: , OTHER MALIGNANT NEOPLASM OF UNSPECIFIED SITE 1 SISTER(S) - HEALTHY. 2 SON(S) , 1 DAUGHTER(S) - HEALTHY. 2 SISTERS FROM CANCER\N2 SON HAS HEART DIEASE. SOCIAL HISTORY GENERAL: TOBACCO USE ARE YOU A:NONSMOKER OTHERS AT HOME: CHILD, IN-LAW(S). DIET: REGULAR. LANGUAGE LANGUAGES SPOKEN:BELARUSIAN NEW PATIENT PAIN DIARY TODAY'S VISITNOTES FROM 0-10, WHAT LEVEL IS YOUR PAIN TODAY?5 RECREATIONAL DRUG USE DRUG USE?NO EXERCISE: NONE. LEARNING BARRIERS / SPECIAL NEEDS CHANGE FROM LAST VISIT?NO BARRIERS TO LEARNING?NO HEARING IMPAIRED?NO VISION IMPAIRED?YES COGNITIVELY IMPAIRED?NO :CORRECTIVE LENSES READINESS TO LEARN?YES LEARNING PREFERENCES?NO LEARNING CAPABILITIES PRESENT?YES EMOTIONAL BARRIERS?NO SPECIAL DEVICES?YES :WALKER MANAGER PLAN NEEDED?NO PAIN CLINIC PFS, CLERGY, PUBLIC HEALTH REFERRALS PFS REFERRAL NEEDED?NO CLERGY REFERRAL NEEDED?NO PUBLIC HEALTH REFERRAL NEEDED?NO WAS THE PROVIDER NOTIFIED OF ANY PERTINENT INFO?NO HAS THE PATIENT BEEN EDUCATED REGARDING HIS/HER PLAN OF CARE?YES HAS THE PATIENT BEEN EDUCATED REGARDING PAIN, THE RISK FOR PAIN, THE IMPORTANCE OF EFFECTIVE PAIN MANAGEMENT, AND THE PAIN ASSESSMENT PROCESS?YES LATEX QUESTIONNAIRE LATEX ALLERGY : HAVE YOU EVER DEVELOPED ANY TYPE OF REACTION AFTER HANDLING LATEX PRODUCTS SUCH RUBBER GLOVES, CONDOMS, DIAPHRAGMS, BALLOONS, SOCKS, OR UNDERWEAR?NO LATEX ALLERGY : HAVE YOU EVER DEVELOPED ANY TYPE OF REACTION DURING OR AFTER DENTAL APPOINTMENT, VAGINAL/RECTAL EXAMINATION, SURGICAL PROCEDURE, OR ANY OTHER EXPOSURE?NO LATEX RISK : HAVE YOU EVER HAD ANY DIFFICULTY BREATHING OR HIVES AFTER EATING OR HANDLING ANY FRUITS, OR VEGETABLES; SUCH KIWI, BANANAS, STONE FRUITS, OR CHESTNUTSNO LATEX RISK : DO YOU HAVE A PREVIOUS PERSONAL HISTORY OF MORE THAN NINE SURGERIES, SPINA BIFIDA, OR REPEATED CATHERIZATIONS? NO LATEX RISK : ARE YOU FREQUENTLY EXPOSED TO LATEX PRODUCTS IN YOUR OCCUPATION?NO DATE ASKED : 11/18/2018 CAFFEINE CAFFEINE USE?YES HOW OFTEN AND HOW MUCH? TEA EACH MORNING ADVANCE DIRECTIVE ADVANCE DIRECTIVE DISCUSSED WITH PATIENT:YES HCP - JAYNA PACKSLEY [phone] CAODAISM [id number] ZOROASTRIAN MARITAL STATUS: . ALCOHOL SCREENING DID YOU HAVE A DRINK CONTAINING ALCOHOL IN THE PAST YEAR?NO POINTS0 INTERPRETATIONNEGATIVE OCCUPATION: RETIRED. REVIEWED WITH PATIENT 05/14/18 1113 JSREVIEWED WITH PATIENT 08/06/18 1137 BVREVIEWED WITH PT 11/04/18 1215 BVREVIEWED WITH PT. 11/18/18 VDREVIEWED WITH PATIENT// JSREVIEWED WITH PATIENT 06/22/19 1107 JS. HOSPITALIZATION/MAJOR DIAGNOSTIC PROCEDURE SURGERIES AND CHILDBIRTH REVIEW OF SYSTEMS REVIEWED BY: PROVIDER: ALBERTINA AVINA . CONSTITUTIONAL: ANY CHANGE IN YOUR MEDICAL CONDITION? YES, OVERACTIVE BLADDER . CHILLS NO . FEVER NO . INFECTION: DO YOU HAVE NEW INFECTIONS? NO . DO YOU HAVE HISTORY OF MRSA? NO . MUSCULOSKELETAL: ANY NEW PATTERNS OF PAIN OR NUMBNESS? NO . GASTROENTEROLOGY: ANY NEW CHANGE IN BOWEL CONTROL? NO . GENITOURINARY: ANY NEW CHANGE IN BLADDER CONTROL? YES, URINARY FREQUENCY, GOING 20+ TIMES/DAY . IS THERE A CHANCE YOU COULD BE ? NO . HEMATOLOGY/LYMPH: DO YOU TAKE ANY BLOOD THINNERS? (FOR EXAMPLE- COUMADIN, PLAVIX, AGGRENOX, PLATEL, PRADAXA, OR XARELTO) YES, XARELTO . WHEN WAS YOUR LAST DOSE? DATE: 06/21/19TIME: 1800 . NEUROLOGY: HAVE YOU FALLEN IN THE PAST 12 MONTHS? YES, STATES PRIOR TO LAST VISIT, DISCUSSED AT PREVIOUS VISIT . ANY NEW EXTREMITY NUMBNESS OR WEAKNESS? YES, WEAKNESS TO BILATERAL LEGS, RIGHT LEG VERY WEAK - SEEMS TO DRAG IT AT TIMES. WEARS BRACE ON BOTH ANKLES . CARDIOLOGY: DO YOU HAVE A PACEMAKER OR DEFIBRILLATOR? YES, PACEMAKER . RESPIRATORY: HAVE YOU BEEN SICK IN THE PAST WEEK? NO . FEVER NO . FLU LIKE SYMPTOMS? NO . COUGH NO . INTEGUMENTARY: DO YOU HAVE ANY RASHES OR OPEN SORES? NO . ALLERGIC/IMMUNO: ARE YOU ALLERGIC TO IV DYE? NO . ANY NEW ALLERGIES? NO . PSYCHIATRIC: DO YOU HAVE THOUGHTS OF HURTING YOURSELF OR SOMEONE ELSE? NO . ARE YOU ABUSED, NEGLECTED, OR IN AN UNSAFE ENVIRONMENT? NO . ENDOCRINOLOGY: ARE YOU DIABETIC? YES . OTHER: DO YOU NEED ANY PRESCRIPTIONS? NO . IF YES, PLEASE LIST: ____ . ANY NEW PROBLEMS WITH YOUR MEDICATIONS? NO . WHEN DID YOU LAST EAT? ____ . WHEN DID YOU LAST DRINK? ____ . WHAT DID YOU LAST DRINK? ____ . NAME OF PERSON DRIVING YOU HOME? ____ . DO YOU HAVE ANY OTHER QUESTIONS OR CONCERNS FLU VACCINE SCHEDULED FOR 06/24/19YES, PATIENT IS HAVING A LOT OF TROUBLE WALKING DUE TO PAIN AND WEAKNESS . VITAL SIGNS WT 229 LBS, HT 63 IN, BMI 40.56 INDEX, BP 111/54 MM HG, HR 70 /MIN, RR 18 /MIN, TEMP 96.6 F, OXYGEN SAT % 95%, SAFE IN ENV? (Y/N) YES, NA INITIALS SC 10:54, REVIEWED BY: JARETH. EXAMINATION GENERAL EXAMINATION: GENERALAWAKE,ALERT ,PLEASANT SON AND TELEHEALTH CASE MANAGER ACCOMPANIES HER.IN WHEELCHAIR. PSYCHAFFECT NORMAL . LUNGS:LUNG RAGLAND ARE CLEAR TO AUSCULTATION BILATERALLY. GOOD MOVEMENT OF AIR . HEART:S1, S2 IN A REGULAR RATE AND RHYTHM. NO SIGNIFICANT MURMURS, RUBS OR GALLOPS NOTED . ASSESSMENTS LUMBOSACRAL SPONDYLOSIS WITHOUT MYELOPATHY - M47.817 (PRIMARY) TREATMENT LUMBOSACRAL SPONDYLOSIS WITHOUT MYELOPATHY INCREASE NORCO TABLET, 10-325 MG, 1 TAB, ORALLY, Q6H PRN MDD4, 30 DAY(S), 120, REFILLS 0 NOTES: ISTOP REGISTRY REVIEWED AND DEMONSTRATES COMPLLIANCE. BRINGS IN MEDICATIONS WHICH IS APPROPRIATE FOR WHAT WAS DISPENSED. RECENT URINE TOXICOLOGY REVIEWED. NO UNAUTHORIZED MEDICATIONS. NO ILLICIT SUBSTANCES AND PRESCRIBED MEDICATIONS WERE PRESENT. , ISTOP REGISTRY REVIEWED AND DEMONSTRATES COMPLLIANCE. BRINGS IN MEDICATIONS WHICH IS APPROPRIATE FOR WHAT WAS DISPENSED. RECENT URINE TOXICOLOGY REVIEWED. NO UNAUTHORIZED MEDICATIONS. NO ILLICIT SUBSTANCES AND PRESCRIBED MEDICATIONS WERE PRESENT. PROCEDURE CODES FA211 ESTABILISHED PATIENT [facility] CHARGE DISPOSITION & COMMUNICATION FOLLOW UP HAS APT Dominique OJEDA ELECTRONICALLY SIGNED BY KAILYN PUGA ON 07/06/2019 AT 09:10 AM EST DISCLAIMER : THIS IS A VISIT SUMMARY EXTRACTED FROM THE [employer] CHART. IT IS NOT A COPY OF THE [employer] PROGRESS NOTE. CACHORRO
== END ==
LOC: M PAIN 10:30
PROVIDERS: ATTEND Nurse Practitioner Family
DX: M47.817 Spondylosis without myelopathy or radiculopathy, lumbosacral region (principal); E11.9 Type 2 diabetes mellitus without complications; I10 Essential (primary) hypertension; Z79.84 Long term (current) use of oral hypoglycemic drugs; Z79.891 Long term (current) use of opiate analgesic; Z79.899 Other long term (current) drug therapy; Z88.8 Allergy status to other drugs, medicaments and biological substances

== ENCOUNTER 2019-08-20 18:13 | Emergency (ER) | payer MEDICARE ==
[~2019-08-20] VITALS: Ht 157.5 cm; Wt 104.5 kg
[2019-08-20] MEDS ORDERED: XARE15TA PO (18:45)
[2019-08-20] MEDS ORDERED: NS 500 ML IV ONE (18:45)
[2019-08-20] MEDS ORDERED: DULO1CAP6 PO (18:45)
[2019-08-20] MEDS ORDERED: ROPI0.253 PO (18:45)
[2019-08-20] MEDS ORDERED: MYRB25TA PO (18:45)
[2019-08-20] MEDS ORDERED: QC A650T3 PO ×2 (18:45)
[2019-08-20] MEDS ORDERED: GABA-845 PO (18:45)
[2019-08-20 19:32] LABS: BASO # 0.1 10^3/uL (0.0-0.2); BASO % 0.7 % (0.0-1.0); EOS # 0.2 10^3/uL (0.0-0.5); EOS % 2.1 % (0.0-3.0); HEMATOCRIT 45.9 % (36.0-47.0); HEMOGLOBIN 14.4 g/dl (12.0-15.5); MEAN CORPUSCULAR HGB CONC 31.4 g/dl (32.0-36.5); MONO # 0.5 10^3/uL (0.0-0.8); MONO % 5.9 % (0.0-5.0); NEUTROPHILS # 6.5 10^3/uL (1.5-8.5); NEUTROPHILS % 78.9 % (36.0-66.0); PLATELET COUNT, AUTOMATED 262 10^3/uL (150-450); RED BLOOD COUNT 4.37 10^6/uL (4.00-5.40); WHITE BLOOD COUNT 8.2 10^3/uL (4.0-10.0)
[2019-08-20 20:02] LABS: CALCIUM LEVEL 9.3 MG/DL (8.8-10.2); CREATININE FOR GFR 1.01 MG/DL (0.55-1.30); GLOMERULAR FILTRATION RATE 55.9 (>32); POTASSIUM SERUM 3.7 MEQ/L (3.5-5.1)
[2019-08-20] MEDS ORDERED: oxyCODONE 5MG TAB PO ONE (20:45)
[2019-08-20] MEDS ORDERED: cefTRIAXone SOD 1 GM in D5W MINI-BAG PLUS 50 ML IV ONE (20:45)
[2019-08-20 22:09] VITALS: BP 108/56
[2019-08-20] MEDS ORDERED: CEFD1CAP8 PO (22:22)
[2019-08-22] MEDS ORDERED: LEVO250T12 PO (17:15)
== END 2019-08-20 22:29 | disposition home or self-care (01) ==
LOC: M ED 18:13
DX: N30.91 Cystitis, unspecified with hematuria (principal); Z96.0 Presence of urogenital implants; I10 Essential (primary) hypertension; E11.9 Type 2 diabetes mellitus without complications; E78.00 Pure hypercholesterolemia, unspecified; G62.9 Polyneuropathy, unspecified; Z95.0 Presence of cardiac pacemaker; Z79.899 Other long term (current) drug therapy; Z88.1 Allergy status to other antibiotic agents; Z88.2 Allergy status to sulfonamides; Z88.5 Allergy status to narcotic agent; Z88.8 Allergy status to other drugs, medicaments and biological substances
CPT/HCPCS: 80048; 81001; 83605; 85025; 87040; 87088; 87186; 96361; 96365; 99284; J0696

== ENCOUNTER → 2019-10-27 | Outpatient (REF) | payer MEDICARE ==
[~2019-10-27] MED LIST changes: +CEFD1CAP8 PO; +DULO1CAP6 PO; +IRBE75TA4 PO; -IRBE75TA5 PO; +LEVO250T12 PO; +MYRB25TA PO; +QC A650T3 PO; +ROPI0.253 PO; +XARE15TA PO
[2019-10-27 14:22] LABS: APPEARANCE, URINE CLOUDY (CLEAR); BACTERIA, URINE AUTO NEGATIVE (NEGATIVE); BILIRUBIN, URINE AUTO NEGATIVE (NEGATIVE); BLOOD, URINE BLOOD 2+ (NEGATIVE); COLOR, URINE YELLOW (YELLOW); GLUCOSE, URINE (UA) AUTO NEGATIVE (NEGATIVE); KETONE, URINE AUTO NEGATIVE (NEGATIVE); LEUKOCYTE ESTERASE, URINE AUTO 1+ (NEGATIVE); NITRITE, URINE AUTO POSITIVE (NEGATIVE); PROTEIN, URINE AUTO 2+ mg/dL (NEGATIVE); RBC, URINE AUTO 104 /HPF (0-3); SQUAMOUS EPITHELIAL CELL UR AU 1 /HPF (0-6); UROBILINOGEN, URINE AUTO 0.2 mg/dL (0.0-2.0); WBC, URINE AUTO 66 /HPF (0-3)
== END ==
LOC: M LAB REF 13:23
PROVIDERS: ATTEND Internal Medicine
DX: N39.0 Urinary tract infection, site not specified (principal)

== ENCOUNTER 2019-11-24 05:32 | Emergency (ER) | payer MEDICARE ==
[~2019-11-24] VITALS: Ht 157.5 cm; Wt 104.5 kg
[2019-11-24] MEDS ORDERED: CARB1TAB PO (06:05)
[2019-11-24 06:47] LABS: HEMATOCRIT 38.8 % (36.0-47.0); HEMOGLOBIN 12.7 g/dl (12.0-15.5); MEAN CORPUSCULAR HEMOGLOBIN 35.1 pg (27.0-33.0); MEAN CORPUSCULAR HGB CONC 32.7 g/dl (32.0-36.5); MEAN CORPUSCULAR VOLUME 107.2 fl (80.0-96.0); PLATELET COUNT, AUTOMATED 325 10^3/uL (150-450); RED BLOOD COUNT 3.62 10^6/uL (4.00-5.40); WHITE BLOOD COUNT 9.2 10^3/uL (4.0-10.0)
[2019-11-24 06:55] LABS: INR 1.56; PROTHROMBIN TIME 18.4 SECONDS (11.8-14.0)
[2019-11-24 06:56] LABS: PARTIAL THROMBOPLASTIN TIME 36.7 SECONDS (25.0-38.4)
[2019-11-24] MEDS ORDERED: MORPHINE 15 MG SA TAB PO ONE (08:30)
[2019-11-24 09:15] VITALS: BP 120/60
== END 2019-11-24 09:48 | disposition home or self-care (01) ==
LOC: M ED 05:32
DX: L89.220 Pressure ulcer of left hip, unstageable (principal); I10 Essential (primary) hypertension; E11.9 Type 2 diabetes mellitus without complications; E78.00 Pure hypercholesterolemia, unspecified; G20 Parkinson's disease; G62.9 Polyneuropathy, unspecified; Z95.0 Presence of cardiac pacemaker; Z79.899 Other long term (current) drug therapy; Z79.01 Long term (current) use of anticoagulants; Z88.1 Allergy status to other antibiotic agents; Z88.2 Allergy status to sulfonamides; Z88.5 Allergy status to narcotic agent; Z88.8 Allergy status to other drugs, medicaments and biological substances
CPT/HCPCS: 36415; 85027; 85610; 85730; 86850; 86900; 86901; 99284; G0463

== ENCOUNTER 2019-11-27 11:29 | Inpatient (IN) | payer MEDICARE ==
[~2019-11-27] VITALS: Ht 157.5 cm; Wt 81.5 kg
[~2019-11-27 11:29] MED LIST changes: +CARB1TAB PO
[2019-11-27] MEDS ORDERED: NS 500 ML IV ONE (12:00)
[2019-11-27 12:04] LABS: BASO # 0.1 10^3/uL (0.0-0.2); BASO % 0.7 % (0.0-1.0); EOS # 0.2 10^3/uL (0.0-0.5); EOS % 3.1 % (0.0-3.0); HEMATOCRIT 29.5 % (36.0-47.0); HEMOGLOBIN 9.6 g/dl (12.0-15.5); LYMPH # 1.2 10^3/uL (1.5-5.0); LYMPH % 16.6 % (24.0-44.0); MEAN CORPUSCULAR HEMOGLOBIN 35.7 pg (27.0-33.0); MEAN CORPUSCULAR HGB CONC 32.5 g/dl (32.0-36.5); MEAN CORPUSCULAR VOLUME 109.7 fl (80.0-96.0); MONO # 0.6 10^3/uL (0.0-0.8); MONO % 7.9 % (0.0-5.0); NEUTROPHILS # 5.1 10^3/uL (1.5-8.5); NEUTROPHILS % 71.3 % (36.0-66.0); PLATELET COUNT, AUTOMATED 316 10^3/uL (150-450); RED BLOOD COUNT 2.69 10^6/uL (4.00-5.40); WHITE BLOOD COUNT 7.2 10^3/uL (4.0-10.0)
--- NOTE | 2019-11-27 12:30 | ECGEPIP ---
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
[2019-11-27 12:43] LABS: ALBUMIN 2.9 GM/DL (3.2-5.2); ALT/SGPT 8 U/L (12-78); BILIRUBIN,TOTAL 0.4 MG/DL (0.2-1.0); BLOOD UREA NITROGEN 15 MG/DL (7-18); CALCIUM LEVEL 8.9 MG/DL (8.8-10.2); CARBON DIOXIDE LEVEL 37 MEQ/L (21-32); CHLORIDE LEVEL 97 MEQ/L (98-107); CREATININE FOR GFR 0.95 MG/DL (0.55-1.30); GLUCOSE, FASTING 143 MG/DL (70-100); IRON (FE) 35 UG/DL (50-170); NT-PRO BNP 545 PG/ML (<450); PERCENT SATURATION 12.4 % (13.2-45.0); POTASSIUM SERUM 4.1 MEQ/L (3.5-5.1); SODIUM LEVEL 138 MEQ/L (136-145); TOTAL IRON BINDING CAPACITY 283 UG/DL (250-450); TOTAL PROTEIN 6.3 GM/DL (6.4-8.2)
[2019-11-27 12:45] LABS: VITAMIN B12 LEVEL 1554 PG/ML (247-911)
[2019-11-27] MEDS ORDERED: ACETAMINOPHEN TAB 650MG DOSE (2X325MG) PO PRN (13:45)
[2019-11-27] MEDS ORDERED: AMIO200T PO (13:46)
[2019-11-27] MEDS ORDERED: ACET-683 PO ×2 (13:46→14:02)
[2019-11-27] MEDS ORDERED: AMIO100T3 PO (13:46)
[2019-11-27] MEDS ORDERED: MORP20SO3 PO (13:55)
[2019-11-27] MEDS ORDERED: CARB25TA9 PO (13:55)
[2019-11-27] MEDS ORDERED: MIRA3350 PO (13:55)
[2019-11-27] MEDS ORDERED: FOLI1TAB11 PO (13:55)
[2019-11-27] MEDS ORDERED: DULO30CA9 PO (13:55)
[2019-11-27 13:56] LABS: INR 1.69; PROTHROMBIN TIME 19.6 SECONDS (11.8-14.0)
[2019-11-27] MEDS ORDERED: MORP20SOL SL (13:58)
--- NOTE | 2019-11-27 13:59 | REP ---
CT BRAIN WITHOUT CONTRAST: HISTORY: Confusion and weakness. Comparison brain CT study August 07, 2019. FINDINGS: Digital preliminary inserter radiograph is unremarkable. Bone window settings demonstrate an intact bony calvarium. There is moderate vascular calcification in the distal internal carotid arteries bilaterally. Visualized paranasal sinuses are clear. No intraorbital abnormality is appreciated. There is generalized volume loss again noted as before. There is no evidence of intracranial hemorrhage. No mass, extra-axial fluid collection, or midline shift is seen. IMPRESSION: No acute intracranial abnormality. Diffuse atrophy and vascular calcification again noted. Electronically Signed by Sarmad Burt MD 11/27/2019 03:28 P
[2019-11-27] MEDS ORDERED: ROPI0.5T3 PO (14:02)
[2019-11-27] MEDS ORDERED: SITA50TAB PO (14:02)
[2019-11-27 14:03] LABS: FERRITIN 97 NG/ML (8-252)
--- NOTE | 2019-11-27 14:05 | REP ---
REASON: Dyspnea. COMPARISON: Two view exam, the latest prior 08/16/2016. The technique utilized in obtaining the radiograph has magnified the cardiac silhouette and accentuated the interstitial markings. The cardiac silhouette is magnified by technique. Mild cardiomegaly cannot be ruled out. The dual chamber bipolar pacemaker device seen on the prior exam is unchanged. No definite new abnormal patchy opacities or pleural effusions have developed. There is no significant change in the appearance of the osseous structures. IMPRESSION: Essentially stable-appearing chronic changes as described above without definite plain radiographic evidence of acute cardiopulmonary disease on this limited portable exam. Electronically Signed by Boyd Horton DO 11/27/2019 02:55 P
[2019-11-27 14:56] LABS: FOLATE > 24.0 NG/ML (>5.4)
--- NOTE | 2019-11-27 16:53 | REP ---
HISTORY: Wound assessment. Ultrasonography of the areas of interest over each was performed. There is no ultrasonographic evidence of an abscess. Electronically Signed by Boyd Horton DO 11/27/2019 05:07 P
[2019-11-27 17:00] VITALS: BP 138/74
[2019-11-27] MEDS ORDERED: MORPHINE 10MG/0.5ML ORAL CONCENTRATE SOLUTION U/D SL PRN (17:30)
--- NOTE | 2019-11-27 17:55 | HPEPDOC ---
General Date of Admission Nov 27, 2019 at 11:30 Date of Service: Nov 27, 2019 Primary Care Physician: Lalitha Luna Other Providers Wound care: Dr. Mares Staple Cutter: Dr. Mcconnell Neurologist: Dr. Lambert Chief Complaint The patient is a 84-year-old female admitted with a reason for visit of Pressure Ulcer Left Hip. History of Present Illness HPI: 84 yo F wheelchair-bound with extensive PMH as listed below, brought in via EMS for reportedly becoming dizzy when being raised to a standing position by assistance of [facility] aides. She has bilateral hip wounds for the past few months due to chronic wheelchair use due to neuropathy from DM2 and Parkinson. When examined for admission, pt initially denied all symptoms, and then later stated maybe she had been mildly dizzy when raised up, but that this is chronic for her. Patient herself states she was sent in to ensure hip wounds are not infected. She states they have been bleeding excessively for past few days, normally do not ooze anything. Wounds were packed by Dr. Mares for initial bleeding. Hgb on admission was 9.6, dropped by 3 from 3 days ago when it was 12.7. She is hemodynamically stable and denies all complaints. Hemoccult in ER was reported negative. Pt herself would like to go back home, crying that she feels like her normal self. Ultimately agreed to be admitted for monitoring. PMH: Bilateral hip wounds from wheelchair Parkinsons disease Dyslipidemia Afib on Xarelto NIDDM 2 with neuropathy Hypertension Depression GERD Sick sinus syndrome status post permanent pacemaker Psoriatic arthritis SCC skin cancer s/p excision Overactive bladder with chronic Choi Glaucoma Past Surgical Hx: PPM 2013 Hysterectomy Bladder suspension Lens implant SCC skin excision Fracture repair Family Hx: Reviewed and noncontributory Social Hx: Lives at home with son Denies tobacco, alcohol, illicit substances No recent travel or med changes or sick contacts ROS: Constitutional: Denies fever, chills, night sweats, weight loss HEENT: Denies headache, dysphagia Skin: Denies any rashes or lesions Pulmonary: Denies dyspnea, cough, wheezing Cardiac: Denies chest pain, palpitations, orthopnea, PND, edema, lightheadedness GI: Denies nausea, vomiting, abdominal pain, diarrhea, constipation, melena, hematochezia : Denies dysuria, hematuria, retention MSK: Denies new pains or weakness Neurologic: Denies new numbness/tingling. Admits lightheaded when standing states is chronic PHYSICAL: General exam: A&O x3, NAD, resting comfortably HEENT: NCAT, EOMI, anicteric sclera Cardiac: RRR, normal S1 & S2, no murmurs Respiratory: CTAB, good air exchange, no w/r/r Abdomen: soft, NT, ND, normoactive bowel sounds Extremity: 2+ radial and dorsalis pedis pulses, no edema or calf tenderness Skin: [place], warm, dry, no visible rash, b/l hip wounds 5cm.2.5cm on left, 2x2cm on right, surrounding erythema and skin taughtness. No tenderness. [place] wounds packed with no visible bleeding or oozing Msk: strength 5/5 b/l UE, 4/5 b/l LE, normal tone Neuro: normal speech, no focal deficits Psych: Normal mood and affect LABORATORY DATA, MICROBIOLOGY: Please see below. IMAGING STUDIES: CXR: Essentially stable-appearing chronic changes as described above without definite plain radiographic evidence of acute cardiopulmonary disease on this limited portable exam. Head CT: No acute intracranial abnormality. Diffuse atrophy and vascular calcification again noted. ASSESSMENT AND PLAN: This is an 84-yo F wheelchair-boud sent in via EMS after [facility] noted she was lightheaded upon standing, and had increased bleeding from hip wounds over the past few days. On admission, had Hgb 9.6, a drop by 3 from just 3 days prior. Pt denies symptoms but will be admitted for monitoring. 1. Dizziness, weakness -Pt denies all symptoms on admission and vitals stable -Reportedly was dizzy upon standing at home -Hgb 9.6, down from 12.7 three days prior -Stool occult in ER negative. Pt denies any bleed -EKG unremarkable, PPM in place -Symptomatic anemia vs orthostatic hypotension vs debility vs medication side effect -Trend H&H, check orthostatic vitals, monitor telemetry -On fall precuations, assisted ambulation only -Hold home diuretics and monitor bp 2. Decreased H&H -Pt denies all GI complaints, but had increased bleeding from hip wounds past few days -Hgb Decreased from 12.7 to 9.6 in 3 days -Anemia w/u reveals iron deficiency -Likely 2/2 hip bleeding & iron deficiency -Trend H&H, transfuse if <8 -Continue Xarelto due to high risk pt, has hx of Afib and multiple co- morbidities -Start on iron supplement -F/u o/p with Dr. Mares for wound management 3. Bilateral hip wounds -Pt reports theyre present for past few months due to chronic wheelchair -Follows Dr. Mares -Hip US negative for abscess -Afebrile, no leukocytosis or signs of infection -Continue wound care and o/p f/u For the remainder of her chronic medical conditions, will resume home meds and replace home sitagliptin with ISS. DVT prophylaxis: mechanical CODE STATUS: discussed in depth with pt on admission. Is DNR/DNI & NO feeding tubes. Son is HCP. DISPOSITION: admit for obs. Likely home tomorrow. Home Medications Scheduled Acetaminophen (Acetaminophen) 500 Mg Tablet, 500 MG PO BID, (Reported) MORNING AND LUNCH Acetaminophen (Acetaminophen) 500 Mg Tablet, 1,000 MG PO QHS, (Reported) Amiodarone HCl (Amiodarone HCl) 200 Mg Tablet, 200 MG PO DAILY, (Reported) Ascorbic Acid (Vitamin C) 500 Mg Tablet, 500 MG PO DAILY, (Reported) Bimatoprost (Lumigan) 0.01% 2.5ML Drops, 1 DROP OU QHS, (Reported) Calcium Carbonate/Vitamin D3 (Calcium 600 + Vit D 400 Softgl) 1 Each Capsule, 1 CAP PO DAILY, (Reported) LUNCH Carbidopa/Levodopa (Carbidopa-Levodopa 25-100 Tab) 1 Each Tablet, 2 TAB PO TID, (Reported) AM, LUNCH, DINNER Cholecalciferol (Vitamin D3) (Vitamin D3) 3,000 Unit Tablet, 3,000 UNIT PO DAILY, (Reported) Duloxetine HCl (Duloxetine HCl) 60 Mg Capsule.dr, 60 MG PO QHS, (Reported) Duloxetine Hcl (Duloxetine HCl) 30 Mg Capsule.dr, 30 MG PO QAM, (Reported) Ferrous Sulfate (Ferrous Sulfate) 325 Mg Tablet, 325 MG PO DAILY Folic Acid (Folic Acid) 1 Mg Tablet, 1 MG PO DAILY, (Reported) Furosemide (Furosemide) 40 Mg Tablet, 40 MG PO DAILY, (Reported) Gabapentin (Gabapentin) 400 Mg Capsule, 400 MG PO TID, (Reported) AM, NOON, DINNER Methotrexate Sodium (Methotrexate) 2.5 Mg Tablet, 7.5 MG PO QWEEK, (Reported) ON MONDAYS Multivitamins (Thera M Plus Tablet) 1 Each Tablet, 1 TAB PO DAILY, (Reported) Nebivolol HCl (Bystolic) 2.5 Mg Tablet, 2.5 MG PO DAILY, (Reported) Omeprazole (Omeprazole) 40 Mg Capsule.dr, 40 MG PO DAILY, (Reported) 2PM Polyethylene Glycol 3350 (Miralax) 119 Gm Powder, 8.5 GM PO QAM, (Reported) dilute in 8 ounces of water or juice Rivaroxaban (Xarelto) 15 Mg Tablet, 15 MG PO QPM, (Reported) Ropinirole HCl (Ropinirole HCl) 0.5 Mg Tablet, 0.5 MG PO TID, (Reported) 7AM,2PM,DINNER Sitagliptin (Januvia) 50 Mg Tablet, 50 MG PO DAILY, (Reported) Spironolactone (Spironolactone) 25 Mg Tablet, 12.5 MG PO DAILY, (Reported) Scheduled PRN Morphine Sulfate (Morphine Sulfate) 100 Mg/5 Ml Solution, 0.5 ML PO Q3HP PRN for PAIN, (Reported) 7AM,NOON,DINNER Morphine Sulfate (Morphine Sulfate Concentrate) 100 Mg/5 Ml Solution, 0.75 ML SL Q3H PRN for PAIN, (Reported) 9PM,MIDNIGHT,0330 Allergies Coded Allergies: pramipexole (Verified Allergy, Intermediate, EXTREME DROWSINESS, INVOLUNTARY MUSC. MOVEMENT, WEAKNESS, 02/22/19) AND CONFUSION Estrogens (Verified Allergy, Unknown, RASH, 02/22/19) Sulfa (Sulfonamide Antibiotics) (Verified Allergy, Unknown, TOLD TO AVOID INTERACTIONS WHILE TAKING METHOTREXATE, 02/22/19) clindamycin (Verified Allergy, Unknown, RASH, 02/22/19) clobetasol (Verified Allergy, Unknown, RASH, 02/22/19) imiquimod (Verified Allergy, Unknown, RASH, 02/22/19) tramadol (Verified Allergy, Unknown, NAUSEA, VOMITING, DIZZINESS, 02/22/19) A-FIB/CHADSVASC A-FIB History Current/History of A-Fib/PAF?: Yes Current PO Anticoag Therapy: Yes Vital Signs Vital Signs Date Time Temp Pulse Resp B/P (MAP) Pulse Ox O2 Delivery O2 Flow Rate FiO2 11/27/19 16:01 98.2 69 18 110/51 (70) 95 Room Air Laboratory Data Labs 24H Laboratory Tests 2 11/27/19 11:50: Prothrombin Time 19.6H, Prothromb Time International Ratio 1.69, Urine Color YELLOW, Urine Appearance CLOUDYH, Urine pH 6.0, Urine Specific [place] 1.006, Urine Protein 1+H, Urine Glucose (UA) NEGATIVE, Urine Ketones NEGATIVE, Urine Blood 1+H, Urine Nitrite POSITIVEH, Urine Bilirubin NEGATIVE, Urine Urobilinogen 0.2, Urine Leukocyte Esterase 3+H, Urine WBC (Auto) TNTCH, Urine RBC (Auto) 23H, Urine Hyaline Casts (Auto) 0, Urine Bacteria (Auto) 1+H, Urine Squamous Epithelial Cells 2, Urine Transitional Epithelial Cells 1, Urine Calcium Oxalate Cryst (Auto) SMALL, Urine Amorphous Sediment SMALLH, Urine Mucus (Auto) SMALL, Urine Sperm (Auto) , Anion Gap 4L, Glomerular Filtration Rate 60.0, Calcium Level 8.9, Iron Level 35L, Total Iron Binding Capacity 283, Transferrin % Saturation 12.4L, Ferritin 97, Total Bilirubin 0.4, Aspartate Amino Transf (AST/SGOT) 24, Alanine Aminotransferase (ALT/SGPT) 8L, Alkaline Phosphatase 122H, VP-Kub-X-Type Natriuretic Peptide 545H, Total Protein 6.3L, Albumin 2.9L, Albumin/Globulin Ratio 0.85L, Vitamin B12 Level 1554H, Folate > 24.0, Thyroid Stimulating Hormone (TSH) 1.410 11/27/19 11:51: Immature Granulocyte % (Auto) 0.4, Neutrophils (%) (Auto) 71.3H, Lymphocytes (%) (Auto) 16.6L, Monocytes (%) (Auto) 7.9H, Eosinophils (%) (Auto) 3.1H, Basophils (%) (Auto) 0.7, Neutrophils # (Auto) 5.1, Lymphocytes # (Auto) 1.2L, Monocytes # (Auto) 0.6, Eosinophils # (Auto) 0.2, Basophils # (Auto) 0.1, Nucleated Red Blood Cells % (auto) 0.0 CBC/BMP Laboratory Tests 11/27/19 11:50 11/27/19 11:51 Microbiology Microbiology 11/27/19 Urine Culture, Received Pending Plan / VTE VTE Prophylaxis Ordered?: Yes GME ATTESTATION GME ATTESTATION My faculty preceptor for this patient encounter was physically present during the encounter and was fully available. All aspects of the patient interview, examination, medical decision making process, and medical care plan development were reviewed and approved by the faculty preceptor. The faculty preceptor is aware and concurs with the plan as stated in the body of this note and will attest to such by his/her cosignature. ATTENDING NOTE I, Zachery Perez, have independently examined this patient and performed my own physical exam, as well as reviewed the documentation and edited where necessary. I have discussed in detail with the resident / student the findings and plan of treatment as documented by the resident / student and edited their note. I agree with their findings and treatment plan and have edited their documentation. I will continue to follow the patient during this hospital stay. STEPHENIE MOONEY DO Nov 27, 2019 17:55 ZACHERY PEREZ MD Nov 30, 2019 17:25
[2019-11-27] MEDS ORDERED: SLF 3 ML SYR IV PRN (18:00)
[2019-11-27 18:21] LABS: HEMATOCRIT 29.4 % (36.0-47.0); HEMOGLOBIN 9.4 g/dl (12.0-15.5)
[2019-11-27] MEDS: GABAPENTIN 400 MG CAP PO SCH (18:55)
[2019-11-27] MEDS: SINEMET 25-100 MG TAB PO SCH (18:56)
[2019-11-27] MEDS: RIVAROXABAN 15 MG TAB (XARELTO) PO SCH (18:56)
[2019-11-27] MEDS: rOPINIRole 0.25 MG TAB(REQUIP) PO SCH (18:56)
[2019-11-27] MEDS: MORPHINE 10MG/0.5ML ORAL CONCENTRATE SOLUTION U/D PO PRN (18:57)
[2019-11-27 20:00] VITALS: BP_SYST 101; BP_SYST 119; BP_DIAS 51; BP_DIAS 56
[2019-11-27] MEDS: SLF 3 ML SYR IV SCH (20:25)
[2019-11-27] MEDS: DULoxetine 30 MG CAP (CYMBALTA) PO SCH (20:25)
[2019-11-27] MEDS: ACETAMINOPHEN 500 MG TAB PO SCH (20:26)
[2019-11-28] VITALS (15 sets, daily range): BP systolic 97–114; BP diastolic 45–75
[2019-11-28 00:11] LABS: HEMATOCRIT 26.9 % (36.0-47.0); HEMOGLOBIN 8.8 g/dl (12.0-15.5)
[2019-11-28 05:47] LABS: HEMATOCRIT 25.5 % (36.0-47.0); HEMOGLOBIN 8.2 g/dl (12.0-15.5); MEAN CORPUSCULAR HGB CONC 32.2 g/dl (32.0-36.5); PLATELET COUNT, AUTOMATED 272 10^3/uL (150-450); RED BLOOD COUNT 2.34 10^6/uL (4.00-5.40); WHITE BLOOD COUNT 6.2 10^3/uL (4.0-10.0)
[2019-11-28 06:06] LABS: BLOOD UREA NITROGEN 12 MG/DL (7-18); CALCIUM LEVEL 8.3 MG/DL (8.8-10.2); CARBON DIOXIDE LEVEL 33 MEQ/L (21-32); CHLORIDE LEVEL 99 MEQ/L (98-107); CREATININE FOR GFR 0.83 MG/DL (0.55-1.30); GLOMERULAR FILTRATION RATE > 60.0 (>32); GLUCOSE, FASTING 92 MG/DL (70-100); POTASSIUM SERUM 3.4 MEQ/L (3.5-5.1); SODIUM LEVEL 138 MEQ/L (136-145)
[2019-11-28] MEDS: rOPINIRole 0.25 MG TAB(REQUIP) PO SCH ×3 (06:07→18:11)
[2019-11-28] MEDS: SLF 3 ML SYR IV SCH ×3 (06:08→22:38)
[2019-11-28] MEDS ORDERED: DEXTROSE 50% 50 ML SYRINGE IV PRN (08:00)
[2019-11-28] MEDS ORDERED: GLUCAGON FOR INJ 1 MG VIAL (J1610) SC PRN (08:00)
[2019-11-28] MEDS ORDERED: GLUCOSE 4 GM CHEW TABLET PO PRN (08:00)
[2019-11-28] MEDS: VITAMIN D 1,000 INTERNATIONAL UNITS TABLET PO SCH (08:35)
[2019-11-28] MEDS: OMEPRAZOLE 20 MG CAP PO SCH (08:35)
[2019-11-28] MEDS: FERROUS SULFATE 325MG TAB PO SCH (08:35)
[2019-11-28] MEDS: SINEMET 25-100 MG TAB PO SCH ×3 (08:35→18:11)
[2019-11-28] MEDS: ASCORBIC ACID 500 MG TAB PO SCH (08:36)
[2019-11-28] MEDS: GABAPENTIN 400 MG CAP PO SCH ×3 (08:36→18:10)
[2019-11-28] MEDS: DULoxetine 30 MG CAP (CYMBALTA) PO SCH ×2 (08:36→20:46)
[2019-11-28] MEDS: MULTIVITAMINS/MINERALS THERAP 1 TAB PO SCH (08:36)
[2019-11-28] MEDS: FOLIC ACID 1 MG TAB PO SCH (08:36)
[2019-11-28] MEDS: AMIODARONE 200 MG TAB (PACERONE) PO SCH (08:37)
[2019-11-28] MEDS: MIRALAX *UNIT DOSE* 17GM PACKET PO SCH (08:39)
[2019-11-28] MEDS: ACETAMINOPHEN 500 MG TAB PO SCH ×3 (08:39→20:46)
[2019-11-28] MEDS ORDERED: PILL CUTTER 1 EACH XX PRN (08:45)
[2019-11-28] MEDS: NEBIVOLOL 5 MG TAB (BYSTOLIC) PO SCH (09:00)
[2019-11-28] MEDS ORDERED: POTASSIUM CHLORIDE 10 MEQ SR TABLET PO ONE (09:00)
--- NOTE | 2019-11-28 10:23 | ECGEPIP ---
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: NAEEM : [id number] Requested By: STEPHENIE MOONEY Order Number: [id number] Reading MD: Richard Crump Measurements Intervals [place] Rate: 70 P: -74 DE: 337 QRS: 61 QRSD: 152 T: -60 QT: 351 QTc: 380 Interpretive Statements consistent AV sequentially paced rhythm Spontaneous alternating with ventricular paced beats Spontaneous QRS complexes with Right bundle branch block configuration Paced QRS complexes with leftward axis and LBB configuration in keeping with RV apical stimulation Increased spontaneous AV conduction from 11/27/19 Electronically Signed on 11-28-2019 10:23:50 EDT by Richard Crump
[2019-11-28] MEDS: DOCUSATE SODIUM 100 MG CAP PO SCH ×2 (10:34→20:46)
--- NOTE | 2019-11-28 11:13 | IPNPDOC ---
Text Note Date of Service The patient was seen on 11/28/19. NOTE SUBJECTIVE: Pt is feeling well and back to her baseline. Noted to have drop in H&H by 1.4 since admission. Denies any symptoms. No lightheadedness/d izziness/cp/sob/n/v/abd pain/active bleed. No events overnight. PHYSICAL: General exam: A&O x3, NAD, laying in bed comfortably HEENT: NCAT, EOMI, anicteric sclera Cardiac: RRR, normal S1 & S2, no murmurs Respiratory: CTAB, good air exchange, no w/r/r Abdomen: soft, NT, ND, normoactive bowel sounds Extremity: 2+ radial and dorsalis pedis pulses, no edema or calf tenderness Skin: [place], warm, dry, no visible rash, b/l hip wounds 5cm.2.5cm on left, 2x2cm on right, surrounding erythema and skin taughtness. No tenderness. Both wounds packed with no visible bleeding or oozing. Bandages with dry blood, no active bleeding Msk: strength 5/5 b/l UE, 4/5 b/l LE, normal tone Neuro: normal speech, no focal deficits Psych: Normal mood and affect LABORATORY DATA, MICROBIOLOGY: Please see below. IMAGING STUDIES: CXR: Essentially stable-appearing chronic changes as described above without definite plain radiographic evidence of acute cardiopulmonary disease on this limited portable exam. Head CT: No acute intracranial abnormality. Diffuse atrophy and vascular calcification again noted. ASSESSMENT AND PLAN: This is an 84-yo F wheelchair-boud sent in via EMS after [facility] noted she was lightheaded upon standing, and had increased bleeding from hip wounds over the past few days. On admission, had Hgb 9.6, a drop by 3 from just 3 days prior. Pt denies symptoms but will be admitted for monitoring. 1. Dizziness / weakness - likely 2/2 orthostatic hypotension - possibly 2/2 medications, possibly 2/2 hypovolemia, possibly 2/2 symptomatic anemia -Pt denies all symptoms since admission and vitals stable -Reportedly was dizzy upon standing at home -Hgb on admission 9.6, down from 12.7 three days prior -Stool occult in ER negative. Pt denies any bleed besides hip wounds -EKG unremarkable, PPM in place -Symptomatic anemia vs orthostatic hypotension vs debility vs medication side effect -Trend H&H, check orthostatics, monitor telemetry -On fall precuations, assisted ambulation only -Hold home diuretics and monitor bp 2. Decreased H&H / Acute symptomatic anemia -Pt denies all GI complaints, but had increased bleeding from hip wounds past few days -No active bleed on exam -Hgb continues to gradually decrease, down from 9.6 on admission to 8.2 less than 24 hrs -Anemia w/u reveals iron deficiency -Likely 2/2 recent hip bleeding & iron deficiency -Started on iron supplement -Discussed blood transfusion, all qs answered. Informed consent obtained verbally and on form with staff today 11/27. Pt will get 2U PRBC and recheck after -Hold Xarelto until H&H stable -F/u o/p with Dr. Mares for wound management 3. Bilateral hip wounds -Pt reports theyre present for past few months due to chronic wheelchair -Follows Dr. Mares -Hip US negative for abscess -Afebrile, no leukocytosis or signs of infection -Continue wound care and o/p f/u - No indications for antibiotics at this time 4. Hypokalemia -supplemented For the remainder of her chronic medical conditions, continue home meds, and replace home sitagliptin with ISS. - Bilateral hip wounds from wheelchair - Parkinsons disease - Dyslipidemia - Afib on Xarelto - NIDDM 2 with neuropathy - Hypertension - Depression - GERD - Sick sinus syndrome status post permanent pacemaker - Psoriatic arthritis - SCC skin cancer s/p excision - Overactive bladder with chronic Choi - Glaucoma DVT prophylaxis: mechanical CODE STATUS: discussed in depth with pt on admission. Is DNR/DNI & NO feeding tubes. Son is HCP. DISPOSITION: continue observation, monitor H&H & tele. Pending PT/OT. Will donwgrade to gen med floor. Likely home tomorrow. VS,Fishbone, I+O VS, Fishbone, I+O Laboratory Tests 11/27/19 11:50 11/27/19 11:51 11/27/19 18:09 11/27/19 23:50 11/28/19 05:25 Vital Signs Date Time Temp Pulse Resp B/P (MAP) Pulse Ox O2 Delivery O2 Flow Rate FiO2 11/28/19 10:45 97.6 96 16 112/55 94 Room Air 94.0 I&O- Last 24 Hours up to 6 AM 11/28/19 06:00 Intake Total 700 ml Output Total 800 ml Balance -100 ml GME ATTESTATION GME ATTESTATION My faculty preceptor for this patient encounter was physically present during the encounter and was fully available. All aspects of the patient interview, examination, medical decision making process, and medical care plan development were reviewed and approved by the faculty preceptor. The faculty preceptor is aware and concurs with the plan as stated in the body of this note and will attest to such by his/her cosignature. ATTENDING NOTE I, Zachery Perez, have independently examined this patient and performed my own physical exam, as well as reviewed the documentation and edited where necessary. I have discussed in detail with the resident / student the findings and plan of treatment as documented by the resident / student and edited their note. I agree with their findings and treatment plan and have edited their documentation. I will continue to follow the patient during this hospital stay. STEPHENIE MOONEY DO Nov 28, 2019 11:13 ZACHREY PEREZ MD Nov 28, 2019 12:41
[2019-11-28] MEDS: HumaLOG INSULIN (NovoLOG) PER UNIT SC SCH ×3 (11:55→20:45)
[2019-11-28 20:45] LABS: HEMATOCRIT 31.8 % (36.0-47.0)
[2019-11-28 20:46] LABS: HEMOGLOBIN 10.5 g/dl (12.0-15.5)
[2019-11-28] MEDS: MORPHINE 10MG/0.5ML ORAL CONCENTRATE SOLUTION U/D PO PRN (20:58)
[2019-11-29] MEDS: MORPHINE 10MG/0.5ML ORAL CONCENTRATE SOLUTION U/D PO PRN ×2 (03:14→15:20)
[2019-11-29] MEDS: SLF 3 ML SYR IV SCH ×3 (05:04→20:41)
[2019-11-29 06:00] VITALS: BP 109/61
[2019-11-29 06:03] LABS: HEMATOCRIT 31.7 % (36.0-47.0); HEMOGLOBIN 10.4 g/dl (12.0-15.5); MEAN CORPUSCULAR HEMOGLOBIN 33.4 pg (27.0-33.0); MEAN CORPUSCULAR HGB CONC 32.8 g/dl (32.0-36.5); MEAN CORPUSCULAR VOLUME 101.9 fl (80.0-96.0); PLATELET COUNT, AUTOMATED 278 10^3/uL (150-450); RED BLOOD COUNT 3.11 10^6/uL (4.00-5.40); WHITE BLOOD COUNT 6.1 10^3/uL (4.0-10.0)
[2019-11-29] MEDS: rOPINIRole 0.25 MG TAB(REQUIP) PO SCH ×3 (06:26→18:27)
[2019-11-29 06:27] LABS: BLOOD UREA NITROGEN 10 MG/DL (7-18); CALCIUM LEVEL 8.8 MG/DL (8.8-10.2); CARBON DIOXIDE LEVEL 34 MEQ/L (21-32); CHLORIDE LEVEL 104 MEQ/L (98-107); GLOMERULAR FILTRATION RATE > 60.0 (>32); GLUCOSE, FASTING 91 MG/DL (70-100); POTASSIUM SERUM 3.5 MEQ/L (3.5-5.1); SODIUM LEVEL 141 MEQ/L (136-145)
[2019-11-29] MEDS: HumaLOG INSULIN (NovoLOG) PER UNIT SC SCH ×4 (07:30→20:52)
[2019-11-29] MEDS ORDERED: LevoFLOXacin IV 750 MG in IV 1 EA IV SCH (08:00)
[2019-11-29] MEDS: MIRALAX *UNIT DOSE* 17GM PACKET PO SCH (08:31)
[2019-11-29] MEDS: DOCUSATE SODIUM 100 MG CAP PO SCH ×2 (08:33→20:15)
[2019-11-29] MEDS: OMEPRAZOLE 20 MG CAP PO SCH (08:33)
[2019-11-29] MEDS: VITAMIN D 1,000 INTERNATIONAL UNITS TABLET PO SCH (08:33)
[2019-11-29] MEDS: ACETAMINOPHEN 500 MG TAB PO SCH ×3 (08:33→20:41)
[2019-11-29] MEDS: FERROUS SULFATE 325MG TAB PO SCH (08:33)
[2019-11-29] MEDS: FOLIC ACID 1 MG TAB PO SCH (08:33)
[2019-11-29] MEDS: SINEMET 25-100 MG TAB PO SCH ×3 (08:34→18:27)
[2019-11-29] MEDS: ASCORBIC ACID 500 MG TAB PO SCH (08:34)
[2019-11-29] MEDS: GABAPENTIN 400 MG CAP PO SCH ×3 (08:34→18:27)
[2019-11-29] MEDS: MULTIVITAMINS/MINERALS THERAP 1 TAB PO SCH (08:34)
[2019-11-29] MEDS: DULoxetine 30 MG CAP (CYMBALTA) PO SCH ×2 (08:34→20:40)
[2019-11-29] MEDS: NEBIVOLOL 5 MG TAB (BYSTOLIC) PO SCH (08:36)
[2019-11-29] MEDS: AMIODARONE 200 MG TAB (PACERONE) PO SCH (08:36)
--- NOTE | 2019-11-29 10:22 | DS.PDOC ---
Discharge Summary General Date of Admission Nov 27, 2019 at 11:30 Date of Discharge 11/30/2019 Discharge Summary ADDENDUM: Patient remained in the hospital for 1 additional day until she cleared PT and OT. PROCEDURES PERFORMED DURING STAY: [None]. ADMITTING DIAGNOSES / DISCHARGE DIAGNOSES: Dizziness / Weakness - likely 2/2 orthostatic hypotension - possibly 2/2 symptomatic anemia, less likely 2/2 medications Bilateral hip wounds from wheelchair Asymptomatic bacteriuria Atrial fibrillation Sick sinus syndrome Hypertension Dyslipidemia NIDDM 2 with neuropathy Parkinsons disease Depression Psoriatic arthritis SCC skin cancer Glaucoma GERD DVT prophylaxis COMPLICATIONS/CHIEF COMPLAINT: Weakness / Dizziness Sent in for evaluation of hip wounds HISTORY OF PRESENT ILLNESS: Patient is an 84-year-old female who is wheelchair dependent, who presented to the emergency room brought in by EMS because of reported dizziness. Patient reports that she doesn't experience any dizziness upon arrival, however, had indicated that she was sent in to the ER because her home health aides had wanted further evaluation of her hip wounds. Patient was admitted to hospitalist service for further evaluation and treatment. HOSPITAL COURSE: Dizziness / Weakness - likely 2/2 orthostatic hypotension - possibly 2/2 symptomatic anemia - 2/2 iron deficiency, less likely 2/2 medications - Clinically patient feels well and has reported resolution of her dizziness - Mentation appears to be clear and patient has been responding more rapidly - Physical is unrevealing - Stool for occult blood negative - Hemoglobin remained stable after 2 units of PRBC transfusion - Will resume home medication and have outpatient follow-up with her primary care provider - Will have outpatient follow up with Gastroenterology - Will continue with ferrous sulfate on discharge Bilateral hip wounds from wheelchair - Currently, these appear to be chronic in nature without any evidence of hernias and change to suggest active infection - Patient is afebrile and hemodynamically stable - No leukocytosis - Will continue with wound care recommendations as per Dr. Mares from outpatient setting - Patient has been advised to follow-up with Dr. Mares Asymptomatic bacteriuria - Patient has a chronic indwelling Choi catheter - Urine cultures in the past have revealed Enterococcus faecalis and pseudomonas aeruginosa - Current urine culture does reveal evidence of pseudomonas as well as ESBL E scherichia coli - Patient remains asymptomatic without any fevers, chills and is hemodynamically stable without any leukocytosis - Patient was given a dose of Levaquin overnight, however, will discontinue its use - Patient has indicated that her Choi catheter was due for an exchange tomorrow. We'll replace today Atrial fibrillation - Currently, patient remains rate and rhythm control; Nebivolol / Amiodarone - Will continue with her home regimen - Anticoagulation will be restarted Sick sinus syndrome - s/p permanent pacemaker Hypertension - BP well controlled - c/w Nebivolol Dyslipidemia - Currently not on treatment; will have outpatient follow up with PCP NIDDM 2 with neuropathy - c/w ISS Parkinsons disease - c/w Carbidopa/Levodopa Depression - c/w Duloxetine Psoriatic arthritis - c/w Tylenol PRN SCC skin cancer - s/p excision Glaucoma - c/w home regimen GERD - c/w Omeprazole DVT prophylaxis - c/w TEDs/Sequentials - Will resume Xarelto DISCHARGE MEDICATIONS: Please see below. ALLERGIES: Please see below. PHYSICAL EXAMINATION ON DISCHARGE: Vitals (See below) General: Lying in bed, appears comfortable, AAOx3 HEENT: NC, AT CVS: +S1S2 Lungs: Fair air entry b/l Abdomen: Soft, ND, NT Extremities: - Edema, - Calf tenderness LABORATORY DATA: Please see below. ACTIVITY: [As tolerated]. DISCHARGE PLAN: Follow-up with PCP, Urology and Gastroenterology as an outpatient Remain compliant with treatment plan and medications Return to the ER if you experience any problems DISPOSITION: Home DISCHARGE CONDITION: [Stable]. TIME SPENT ON DISCHARGE: 25 minutes. Vital Signs/I&Os Vital Signs Date Time Temp Pulse Resp B/P (MAP) Pulse Ox O2 Delivery O2 Flow Rate FiO2 11/29/19 08:36 87 109/54 11/29/19 06:00 98.6 17 93 Room Air 11/28/19 10:45 94.0 I&O- Last 24 Hours up to 6 AM 11/29/19 06:00 Intake Total 2553 ml Output Total 600 ml Balance 1953 ml Laboratory Data Labs 24H Laboratory Tests 2 11/28/19 11:44: Bedside Glucose (Misc Panel) 124H 11/28/19 16:33: Bedside Glucose (Misc Panel) 106 11/28/19 19:31: Bedside Glucose (Misc Panel) 91 11/29/19 05:37: Nucleated Red Blood Cells % (auto) 0.0 11/29/19 05:38: Anion Gap 3L, Glomerular Filtration Rate > 60.0, Calcium Level 8.8 CBC/BMP Laboratory Tests 11/28/19 20:30 11/29/19 05:37 11/29/19 05:38 FSBS Laboratory Tests Test 11/28/19 11:44 11/28/19 16:33 11/28/19 19:31 Range/Units Bedside Glucose (Misc Panel) 124 106 91 83-110 MG/DL Microbiology Microbiology 11/28/19 Stool Occult Blood (GRACE) - Final, Complete 11/27/19 Urine Culture - Preliminary, Resulted E.coli Esbl Pseudomonas Aeruginosa Discharge Medications Scheduled Acetaminophen (Acetaminophen) 500 Mg Tablet, 500 MG PO BID, (Reported) MORNING AND LUNCH Acetaminophen (Acetaminophen) 500 Mg Tablet, 1,000 MG PO QHS, (Reported) Amiodarone HCl (Amiodarone HCl) 200 Mg Tablet, 200 MG PO DAILY, (Reported) Ascorbic Acid (Vitamin C) 500 Mg Tablet, 500 MG PO DAILY, (Reported) Bimatoprost (Lumigan) 0.01% 2.5ML Drops, 1 DROP OU QHS, (Reported) Calcium Carbonate/Vitamin D3 (Calcium 600 + Vit D 400 Softgl) 1 Each Capsule, 1 CAP PO DAILY, (Reported) LUNCH Carbidopa/Levodopa (Carbidopa-Levodopa 25-100 Tab) 1 Each Tablet, 2 TAB PO TID, (Reported) AM, LUNCH, DINNER Cholecalciferol (Vitamin D3) (Vitamin D3) 3,000 Unit Tablet, 3,000 UNIT PO DAILY, (Reported) Duloxetine HCl (Duloxetine HCl) 60 Mg Capsule.dr, 60 MG PO QHS, (Reported) Duloxetine Hcl (Duloxetine HCl) 30 Mg Capsule.dr, 30 MG PO QAM, (Reported) Ferrous Sulfate (Ferrous Sulfate) 325 Mg Tablet, 325 MG PO DAILY Folic Acid (Folic Acid) 1 Mg Tablet, 1 MG PO DAILY, (Reported) Furosemide (Furosemide) 40 Mg Tablet, 40 MG PO DAILY, (Reported) Gabapentin (Gabapentin) 400 Mg Capsule, 400 MG PO TID, (Reported) AM, NOON, DINNER Methotrexate Sodium (Methotrexate) 2.5 Mg Tablet, 7.5 MG PO QWEEK, (Reported) ON MONDAYS Multivitamins (Thera M Plus Tablet) 1 Each Tablet, 1 TAB PO DAILY, (Reported) Nebivolol HCl (Bystolic) 2.5 Mg Tablet, 2.5 MG PO DAILY, (Reported) Omeprazole (Omeprazole) 40 Mg Capsule.dr, 40 MG PO DAILY, (Reported) 2PM Polyethylene Glycol 3350 (Miralax) 119 Gm Powder, 8.5 GM PO QAM, (Reported) dilute in 8 ounces of water or juice Rivaroxaban (Xarelto) 15 Mg Tablet, 15 MG PO QPM, (Reported) Ropinirole HCl (Ropinirole HCl) 0.5 Mg Tablet, 0.5 MG PO TID, (Reported) 7AM,2PM,DINNER Sitagliptin (Januvia) 50 Mg Tablet, 50 MG PO DAILY, (Reported) Spironolactone (Spironolactone) 25 Mg Tablet, 12.5 MG PO DAILY, (Reported) Scheduled PRN Morphine Sulfate (Morphine Sulfate) 100 Mg/5 Ml Solution, 0.5 ML PO Q3HP PRN for PAIN, (Reported) 7AM,NOON,DINNER Morphine Sulfate (Morphine Sulfate Concentrate) 100 Mg/5 Ml Solution, 0.75 ML SL Q3H PRN for PAIN, (Reported) 9PM,MIDNIGHT,0330 Allergies Coded Allergies: pramipexole (Verified Allergy, Intermediate, EXTREME DROWSINESS, INVOLUNTARY MUSC. MOVEMENT, WEAKNESS, 02/22/19) AND CONFUSION Estrogens (Verified Allergy, Unknown, RASH, 02/22/19) Sulfa (Sulfonamide Antibiotics) (Verified Allergy, Unknown, TOLD TO AVOID INTERACTIONS WHILE TAKING METHOTREXATE, 02/22/19) clindamycin (Verified Allergy, Unknown, RASH, 02/22/19) clobetasol (Verified Allergy, Unknown, RASH, 02/22/19) imiquimod (Verified Allergy, Unknown, RASH, 02/22/19) tramadol (Verified Allergy, Unknown, NAUSEA, VOMITING, DIZZINESS, 02/22/19) PATRICK SAUER MD Nov 29, 2019 10:22
[2019-11-29] MEDS ORDERED: FERR325T18 PO (10:24)
[2019-11-29 14:00] VITALS: BP 129/61
[2019-11-29] MEDS ORDERED: SIMETHICONE 80 MG CHEW TAB PO PRN (18:15)
[2019-11-29] MEDS: RIVAROXABAN 15 MG TAB (XARELTO) PO SCH (18:28)
[2019-11-29 22:00] VITALS: BP 111/62
[2019-11-30] MEDS: MORPHINE 10MG/0.5ML ORAL CONCENTRATE SOLUTION U/D PO PRN (02:12)
[2019-11-30 06:00] VITALS: BP 108/63
[2019-11-30] MEDS: rOPINIRole 0.25 MG TAB(REQUIP) PO SCH ×2 (06:16→13:31)
[2019-11-30] MEDS: SLF 3 ML SYR IV SCH (06:16)
[2019-11-30 07:14] LABS: HEMATOCRIT 34.6 % (36.0-47.0); HEMOGLOBIN 11.1 g/dl (12.0-15.5); MEAN CORPUSCULAR HEMOGLOBIN 33.3 pg (27.0-33.0); MEAN CORPUSCULAR HGB CONC 32.1 g/dl (32.0-36.5); MEAN CORPUSCULAR VOLUME 103.9 fl (80.0-96.0); PLATELET COUNT, AUTOMATED 317 10^3/uL (150-450); RED BLOOD COUNT 3.33 10^6/uL (4.00-5.40); WHITE BLOOD COUNT 7.3 10^3/uL (4.0-10.0)
[2019-11-30 07:20] LABS: BLOOD UREA NITROGEN 8 MG/DL (7-18); CALCIUM LEVEL 8.9 MG/DL (8.8-10.2); CARBON DIOXIDE LEVEL 33 MEQ/L (21-32); CHLORIDE LEVEL 106 MEQ/L (98-107); CREATININE FOR GFR 0.78 MG/DL (0.55-1.30); GLOMERULAR FILTRATION RATE > 60.0 (>32); GLUCOSE, FASTING 91 MG/DL (70-100); POTASSIUM SERUM 3.4 MEQ/L (3.5-5.1); SODIUM LEVEL 143 MEQ/L (136-145)
[2019-11-30] MEDS: HumaLOG INSULIN (NovoLOG) PER UNIT SC SCH ×2 (07:30→12:00)
[2019-11-30] MEDS ORDERED: POTASSIUM CHLORIDE 10 MEQ SR TABLET PO ONE (07:45)
[2019-11-30] MEDS: GABAPENTIN 400 MG CAP PO SCH ×2 (08:00→12:16)
[2019-11-30] MEDS: ACETAMINOPHEN 500 MG TAB PO SCH ×2 (08:00→12:18)
[2019-11-30] MEDS: FERROUS SULFATE 325MG TAB PO SCH (08:01)
[2019-11-30] MEDS: DULoxetine 30 MG CAP (CYMBALTA) PO SCH (08:01)
[2019-11-30] MEDS: MULTIVITAMINS/MINERALS THERAP 1 TAB PO SCH (08:01)
[2019-11-30] MEDS: SINEMET 25-100 MG TAB PO SCH ×2 (08:01→12:17)
[2019-11-30] MEDS: AMIODARONE 200 MG TAB (PACERONE) PO SCH ×2 (08:01→08:24)
[2019-11-30] MEDS: ASCORBIC ACID 500 MG TAB PO SCH (08:01)
[2019-11-30] MEDS: FOLIC ACID 1 MG TAB PO SCH (08:01)
[2019-11-30] MEDS: VITAMIN D 1,000 INTERNATIONAL UNITS TABLET PO SCH (08:01)
[2019-11-30] MEDS: OMEPRAZOLE 20 MG CAP PO SCH (08:01)
[2019-11-30] MEDS: DOCUSATE SODIUM 100 MG CAP PO SCH (08:02)
[2019-11-30] MEDS: MIRALAX *UNIT DOSE* 17GM PACKET PO SCH (08:02)
[2019-11-30] MEDS: NEBIVOLOL 5 MG TAB (BYSTOLIC) PO SCH ×2 (08:09→10:31)
[2019-11-30 10:31] VITALS: BP 118/65
--- NOTE | 2019-11-30 15:58 | IPNPDOC ---
Text Note Date of Service The patient was seen on 11/30/19. NOTE Subjective: Patient is an 84-year-old female who is wheelchair dependent, who presented to the emergency room brought in by EMS because of reported dizziness. Patient reports that she doesn't experience any dizziness upon arrival, however, had indicated that she was sent in to the ER because her home health aides had wanted further evaluation of her hip wounds. Patient was admitted to hospitalist service for further evaluation and treatment. Patient was seen and examined at the bedside. Patient was seen and examined this morning, she has no new complaints. Patient denies chest pain, short of breath, palpitations. Has cleared physical therapy. Objective: Vitals (See below) General: Lying in bed, no acute distress, comfortable, AAOx3 HEENT: NC, AT CVS: +S1S2 Lungs: Fair air entry b/l, no wheezing, rhonchi, crackles Abdomen: Soft, ND, NT Extremities: No evidence of LE edema, - Calf tenderness Assessment and plan: s/p Dizziness / Weakness - likely 2/2 orthostatic hypotension - possibly 2/2 symptomatic anemia - 2/2 iron deficiency, less likely 2/2 medications - Resolution of dizziness / Clear mentation - Physical is unrevealing - Stool for occult blood negative / H&H stable - s/p 2 units of PRBC transfusion - c/w Ferrous sulfate and GI follow up as outpatient Bilateral hip wounds from wheelchair - Appears chronic in nature / Afebrile and hemodynamically stable - No leukocytosis - c/w wound care recommendations as per Dr. Mares from outpatient setting - Will have follow-up with Dr. Mares Asymptomatic bacteriuria - Has a chronic indwelling Choi catheter / Urine cultures in the past have revealed Enterococcus faecalis and pseudomonas aeruginosa - Urine culture 11/26: Pseudomonas / ESBL Escherichia coli - Afebrile / Hemodynamically stable / No leukocytosis - s/p Levaquin x1 dose - s/p Chronic Choi exchange Atrial fibrillation - Currently, patient remains rate and rhythm control; Nebivolol / Amiodarone - c/w Anticoagulation Sick sinus syndrome - s/p permanent pacemaker Hypertension - BP well controlled - c/w Nebivolol Dyslipidemia - Currently not on treatment - Will have outpatient follow up with PCP NIDDM 2 with neuropathy - c/w ISS Parkinsons disease - c/w Carbidopa/Levodopa Depression - c/w Duloxetine Psoriatic arthritis - c/w Tylenol PRN SCC skin cancer - s/p excision Glaucoma - c/w Home regimen GERD - c/w Omeprazole DVT prophylaxis - c/w TEDs/Sequentials / Xarelto VS,Fishbone, I+O VS, Fishbone, I+O Laboratory Tests 11/30/19 06:08 Vital Signs Date Time Temp Pulse Resp B/P (MAP) Pulse Ox O2 Delivery O2 Flow Rate FiO2 11/30/19 11:26 16 Room Air 11/30/19 10:56 98.8 11/30/19 10:31 115 118/65 11/30/19 06:00 94 11/28/19 10:45 94.0 I&O- Last 24 Hours up to 6 AM 11/30/19 06:00 Intake Total 820 ml Output Total 1700 ml Balance -880 ml PATRICK SAUER MD Nov 30, 2019 15:58
== END 2019-11-30 13:45 | disposition home or self-care (01) | DRG 594 ==
LOC: M ED 11:29 → M PCU 11:30 → EEVIPCON 11:30 → M ED INP 11:31 → ENRESERV 16:16 → M PCU 16:51 → M MSPAV 11-28 12:57 → OBSVTOIN 11-29 11:07
PROVIDERS: ADMIT Internal Medicine; ATTEND Internal Medicine
DX: L89.223 Pressure ulcer of left hip, stage 3 (principal); L89.212 Pressure ulcer of right hip, stage 2; R42 Dizziness and giddiness; R53.1 Weakness; R82.71 Bacteriuria; B96.20 Unspecified Escherichia coli [E. coli] as the cause of diseases classified elsewhere; B96.5 Pseudomonas (aeruginosa) (mallei) (pseudomallei) as the cause of diseases classified elsewhere; E87.6 Hypokalemia; I48.91 Unspecified atrial fibrillation; Z66 Do not resuscitate; I49.5 Sick sinus syndrome; I10 Essential (primary) hypertension; E78.5 Hyperlipidemia, unspecified; E11.40 Type 2 diabetes mellitus with diabetic neuropathy, unspecified; G20 Parkinson's disease; F32.9 Major depressive disorder, single episode, unspecified; L40.50 Arthropathic psoriasis, unspecified; K21.9 Gastro-esophageal reflux disease without esophagitis; I95.1 Orthostatic hypotension; H40.9 Unspecified glaucoma; N32.81 Overactive bladder; D50.9 Iron deficiency anemia, unspecified; Z96.0 Presence of urogenital implants; Z85.828 Personal history of other malignant neoplasm of skin; Z79.899 Other long term (current) drug therapy; Z79.01 Long term (current) use of anticoagulants; Z79.84 Long term (current) use of oral hypoglycemic drugs; Z88.8 Allergy status to other drugs, medicaments and biological substances; Z88.2 Allergy status to sulfonamides; Z88.1 Allergy status to other antibiotic agents; Z88.5 Allergy status to narcotic agent; Z99.3 Dependence on wheelchair; Z95.0 Presence of cardiac pacemaker

== ENCOUNTER → 2020-02-03 | Outpatient (REF) | payer MEDICARE ==
[~2020-02-03] MED LIST changes: +AMIO100T3 PO; -AMIO200T PO; +AMIO200T3 PO; +FERR325T18 PO; +MORP1SOL SL; +MORP20SO3 PO; +ROPI0.5T3 PO
== END ==
LOC: M LAB REF 16:07
PROVIDERS: ATTEND Surgery
DX: L89.224 Pressure ulcer of left hip, stage 4 (principal)